=== PATIENT | male | born 1985 ===

== ENCOUNTER 2017-03-11 19:56 | Inpatient (IN) | payer MEDICAID ==
[2017-03-11] MEDS ORDERED: Sodium Chloride 0.9% 1,000 ML IV STA (20:28)
[2017-03-11 21:00] LABS: BASO % 0.3 % (0.0-2.0); EOS % 0.6 % (0.0-4.0); HEMOGLOBIN 14.5 g/dL (12.0-18.0); LYMPH # 1.9 K/uL (1.0-4.3); LYMPH % 28.7 % (20.0-40.0); MEAN CORPUSCULAR HEMOGLOBIN 28.8 pg (27.0-31.0); MEAN CORPUSCULAR HGB CONC 33.5 g/dL (33.0-37.0); MEAN PLATELET VOLUME 12.5 fl (7.2-11.7); MONO # 0.6 K/uL (0.0-0.8); MONO % 9.4 % (0.0-10.0); NEUT # 4.1 K/uL (1.8-7.0); NRBC % 0.1 % (0.0-0.0); RBC 5.02 Mil/uL (4.40-5.90); RED CELL DISTRIBUTION WIDTH 12.9 % (11.5-14.5); WHITE BLOOD COUNT 6.7 K/uL (4.8-10.8)
--- NOTE | 2017-03-11 21:02 | ED PDOC ---
Syncope/Near Syncope/Dizziness Time Seen by Provider: 03/11/17 20:15 Chief Complaint (Nursing): Weakness/Neurological Deficit Chief Complaint (Provider): WEAKNESS History Per: Patient (31 Y/O MALE H/O CHILDHOOD EPILEPSY IN [facility] HERE WITH TACTILE FEVER/COUGH/URI X 2 WEEKS ASSOCIATED TODAY WITH 2 SEPARATE EPISODE OF DIFFICULTY WITH SPEECH. STATES HE NOTED 3 SECOND EPISODE WHERE 'HIS TONGUE DID NOT WORK' AND HIS SPEECH WAS INCOHERENT. STATES HE FELT NEAR SYNCOPAL AT THAT TIME. NOTES ADDITONAL EPISODE LONGER IN DURATION A SHORT TIME PERIOD SUBSEQUENTLY. HAS NOTED CHEST PAIN WITH COUGHING AND DEEP BREATH. NO FLIGHTS. NO SMOKING/ETOH/DRUGS. NO FAMILY H/O CVA/IN/PE/DVT. STATES HE HAS HAD EEG IN [place] NEGATIVE FOR EPILEPSY AT THAT TIME.NO LOC WITH THESE EPISODES ) Past Medical History Reviewed: Historical Data, Nursing Documentation, Vital Signs Vital Signs: Last Vital Signs Temp 98.8 F 03/11/17 20:04 Pulse 99 H 03/11/17 20:04 Resp 18 03/11/17 20:17 BP 161/83 H 03/11/17 20:04 Pulse Ox 98 03/11/17 20:04 - Medical History PMH: HTN, Seizures (as a child) - Family History Family History: States: Unknown Family Hx - Social History Current smoker - smoking cessation education provided: No Alcohol: None Drugs: Denies - Home Medications Home Medications: Ambulatory Orders Medication Instructions Recorded No Known Home Med 03/11/17 - Allergies Allergies/Adverse Reactions: Allergies Allergy/AdvReac Type Severity Reaction Status Date / Time No Known Allergies Allergy Verified 03/11/17 20:09 Review of Systems ROS Statement: Except As Marked, All Systems Reviewed And Found Negative Physical Exam - Reviewed Nursing Documentation Reviewed: Yes Vital Signs Reviewed: Yes - Physical Exam Appears: Positive for: Well, Non-toxic, No Acute Distress Head Exam: Positive for: ATRAUMATIC, NORMAL INSPECTION, NORMOCEPHALIC Skin: Positive for: Normal Color, Warm, DRY Eye Exam: Positive for: EOMI, Normal appearance, PERRL ENT: Positive for: Normal ENT Inspection Neck: Positive for: Normal, Painless ROM Cardiovascular/Chest: Positive for: Regular Rate, Rhythm Respiratory: Positive for: CNT, Normal Breath Sounds Gastrointestinal/Abdominal: Positive for: Normal Exam, Bowel Sounds, Soft Back: Positive for: Normal Inspection Extremity: Positive for: Normal ROM Neurologic/Psych: Positive for: Alert, Oriented - Laboratory Results Result Diagrams: 03/11/17 20:57 03/11/17 20:57 - ECG O2 Sat by Pulse Oximetry: 98 (RA) Pulse Ox Interpretation: Normal - Progress ED Course And Treament: cxr: nad as per vrad head ct: IMPRESSION: No acute infarction or other acute intracranial pathology. Left frontal small arachnoid cyst with mild regional mass effect upon the left frontal lobe, as above. Thank you for allowing us to participate in the care of your patient. Dictated and Authenticated by: Perico Meeks MD ns 1 liter wide open d/w Dr. Kam, neurosurgery. CT reading normal variant. d/w Dr. Mcdermott neurology, recommends MRI brain with and without. Disposition - Clinical Impression Clinical Impression: Episode of generalized weakness - Patient ED Disposition Is Patient to be Admitted: Yes - Disposition Disposition Time: 00:00 Condition: FAIR
[2017-03-11 21:10] LABS: ALB/GLOB RATIO 1.3 (1.0-2.1); ALBUMIN 4.4 g/dL (3.5-5.0); ALT/SGPT 74 U/L (21-72); AST/SGOT 41 U/L (17-59); BLOOD UREA NITROGEN 13 mg/dl (9-20); CALCIUM 9.5 mg/dL (8.4-10.2); GFR AFRICAN-AMERICAN > 60; GFR NON-AFRICAN AMERICAN > 60; MAGNESIUM 1.8 MG/DL (1.6-2.3)
--- NOTE | 2017-03-11 22:07 | RAD ---
EXAM: XR Chest, 2 Views CLINICAL HISTORY: 31 years old, male; Signs and symptoms; Cough; Symptoms not specified TECHNIQUE: Frontal and lateral views of the chest. EXAM DATE/TIME: 03/11/2017 8:28 PM COMPARISON: No relevant prior studies available. FINDINGS: The mediastinal cardiac silouette is at the upper limits of normal. The lungs are clear. No effusions are identified. The osseous structures are normal. IMPRESSION: No acute findings.
[2017-03-11 22:50] LABS: VENOUS BLOOD GAS BASE EXCESS -6.1 mmol/L (0.0-2.0); VENOUS BLOOD GAS PCO2 58 mmHg (40-60); VENOUS BLOOD GAS PO2 96 mm/Hg (30-55)
[2017-03-11 23:44] LABS: VENOUS BLOOD GAS BASE EXCESS 0.3 mmol/L (0.0-2.0); VENOUS BLOOD GAS PCO2 38 mmHg (40-60); VENOUS BLOOD GAS PO2 75 mm/Hg (30-55); VENOUS BLOOD PH 7.42 (7.32-7.43)
--- NOTE | 2017-03-12 07:24 | CT ---
PROCEDURE: CT HEAD WITHOUT CONTRAST. HISTORY: difficulty with speech COMPARISON: None available. TECHNIQUE: Axial computed tomography images were obtained through the head/brain without intravenous contrast. Radiation dose: Total exam DLP = 8 4 mGy-cm. This CT exam was performed using one or more of the following dose reduction techniques: Automated exposure control, adjustment of the mA and/or kV according to patient size, and/or use of iterative reconstruction technique. FINDINGS: HEMORRHAGE: No intracranial hemorrhage. BRAIN: No mass effect or edema. No atrophy or chronic microvascular ischemic changes. Focal encephalomalacia along the left frontal lobe. Prominent foramen magnum. VENTRICLES: Unremarkable. No hydrocephalus. CALVARIUM: Unremarkable. PARANASAL SINUSES: Unremarkable as visualized. No significant inflammatory changes. MASTOID AIR CELLS: Unremarkable as visualized. No inflammatory changes. OTHER FINDINGS: None. IMPRESSION: No acute hemorrhage. Focal encephalomalacia along the left frontal lobe, of nonspecific etiology.
[2017-03-12] MEDS ORDERED: Gadodiamide 287 MG/ML VIAL (15ML) IV ONE (07:29)
--- NOTE | 2017-03-12 09:36 | CP.PCM.PN ---
Subjective - Date & Time of Evaluation Date of Evaluation: 03/12/17 Time of Evaluation: 09:34 - Subjective Subjective: called by ER attending last night regarding CT findings are almost certainly congenital based on hx of seizures at this time this is not a surgical lesion and would recommend a further w/u by neurology no role for neurosurgical intervention at this time Objective - Vital Signs/Intake and Output Vital Signs (last 24 hours): Temp Pulse Resp BP Pulse Ox 97.7 F 73 18 135/84 99 03/12/17 08:53 03/12/17 08:53 03/12/17 08:53 03/12/17 08:53 03/12/17 08:53
--- NOTE | 2017-03-12 12:02 | CARD ---
APPROVED REPORT EKG Measurement Heart [id number] <Conclusion> Normal sinus rhythm Cannot rule out Inferior infarct, age undetermined Abnormal ECG
--- NOTE | 2017-03-12 13:34 | CP.PCM.CON ---
History of Present Illness - History of Present Illness History of Present Illness: Infcetious Disease Consult Note- Asked to see this patient at th request of for Neurocysticercosis. HPI- Patient is a 31 year old male originally from [place] who has been in [place] for past 17 years with pmh of seizures as a child but states has not been on any anti-seizure meds since age 7. pt. states he is generally healthy but 2 days ago while at work he noticed that his tongue and chin felt strange and that his speech was changed and slurre and this lasted few seconds and resolved and again it happened second time few hours later while at work talking to his coworkers. He then states again yesterday while he was talking to a friend his speech became incoherent and somewhat slurred and he also felt burning sensation of the eys. he denies any double vision and denies any blurry vision, states slight MCCLURE now but denies any neck pain and denies any headache yesterday. he also state for past few days he felt like he had mild cold with slight cough and sore throat. denies any phlegm. jaky any sob. denies any fever or chills. denies passing out, denies any weakness in his arms or legs. denies any n/v, denies any diarrhea, denies any dysurea. He denies ever having similar episode in his life. he denies any h/o parasitic infections. 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 denies any recent travel denies any sick contacts Review of Systems - Review of Systems Review of Systems: as stated in HPI Past Patient History - Past Medical History & Family History Past Medical History?: No - Past Social History Smoking Status: Never Smoked Alcohol: None Drugs: Denies Home Situation {Lives}: With Family - CARDIAC Hx Hypertension: Yes - PULMONARY Hx Respiratory Disorders: No - NEUROLOGICAL Hx Neurological Disorder: Yes Hx Seizures: Yes (as a child) - HEENT Hx HEENT Problems: No - RENAL Hx Chronic Kidney Disease: No - MUSCULOSKELETAL/RHEUMATOLOGICAL Hx Falls: No - PSYCHIATRIC Hx Substance Use: No - SURGICAL HISTORY Hx Surgeries: No - ANESTHESIA Hx Anesthesia: No Hx Anesthesia Reactions: No Hx Malignant Hyperthermia: No Meds Allergies/Adverse Reactions: Allergies Allergy/AdvReac Type Severity Reaction Status Date / Time No Known Allergies Allergy Verified 03/11/17 20:09 Physical Exam - Constitutional Appears: Non-toxic, No Acute Distress - Head Exam Head Exam: ATRAUMATIC - Eye Exam Eye Exam: EOMI, PERRL - ENT Exam ENT Exam: Normal Oropharynx - Neck Exam Neck exam: Positive for: Full Rom Additional comments: supple No meningeal signs - Respiratory Exam Respiratory Exam: Clear to Auscultation Bilateral, NORMAL BREATHING PATTERN - Cardiovascular Exam Cardiovascular Exam: RRR, +S1, +S2 - GI/Abdominal Exam GI & Abdominal Exam: Normal Bowel Sounds, Soft Additional comments: NT, ND - Extremities Exam Extremities exam: Positive for: normal inspection - Neurological Exam Neurological exam: Alert, Oriented x3 Results - Vital Signs Recent Vital Signs: Last Vital Signs Temp 98 F 03/12/17 12:00 Pulse 70 03/12/17 12:00 Resp 18 03/12/17 12:00 BP 139/77 03/12/17 12:00 Pulse Ox 100 03/12/17 12:00 - Labs Result Diagrams: 03/11/17 20:57 03/11/17 20:57 Labs: Laboratory Results - last 72 hr 03/11/17 03/11/17 03/11/17 20:57 20:57 20:57 WBC 6.7 RBC 5.02 Hgb 14.5 Hct 43.2 MCV 86.0 MCH 28.8 MCHC 33.5 RDW 12.9 Plt Count 138 MPV 12.5 H Neut % (Auto) 61.0 Lymph % (Auto) 28.7 [place] % (Auto) 9.4 Eos % (Auto) 0.6 Baso % (Auto) 0.3 Neut # 4.1 Lymph # 1.9 [place] # 0.6 Eos # 0.0 Baso # 0.0 D-Dimer, Quantitative 187 pO2 VBG pH VBG pCO2 VBG HCO3 VBG Total CO2 VBG O2 Sat (Calc) VBG Base Excess VBG Potassium Glucose Lactate FiO2 Blood Gas Comments Crit Value Called To Crit Value Called By Crit Value Read Back Blood Gas Notified Time Sodium 141 Potassium 3.7 Chloride 106 Carbon Dioxide 24 Anion Gap 15 BUN 13 Creatinine 0.9 Est GFR ( Amer) > 60 Est GFR (Non-Af Amer) > 60 Random Glucose 113 H Calcium 9.5 Magnesium 1.8 Total Bilirubin 0.6 AST 41 ALT 74 H Alkaline Phosphatase 87 Troponin I < 0.0120 Total Protein 7.7 Albumin 4.4 Globulin 3.3 Albumin/Globulin Ratio 1.3 Venous Blood Potassium 03/11/17 03/11/17 22:45 23:40 WBC RBC Hgb Hct MCV MCH MCHC RDW Plt Count MPV Neut % (Auto) Lymph % (Auto) [place] % (Auto) Eos % (Auto) Baso % (Auto) Neut # Lymph # [place] # Eos # Baso # D-Dimer, Quantitative pO2 96 H 75 H VBG pH 7.20 L 7.42 VBG pCO2 58 38 L VBG HCO3 20.1 25.1 VBG Total CO2 24.5 25.8 VBG O2 Sat (Calc) 99.9 H 98.7 H VBG Base Excess -6.1 L 0.3 VBG Potassium > 20.0 H* 3.6 Glucose 105 104 Lactate 1.6 1.2 FiO2 21.0 21.0 Blood Gas Comments Vbg Crit Value Called To Dr cara farr Crit Value Called By Crystal Crit Value Read Back Y Blood Gas Notified Time 2250 Sodium 128.0 L 139.0 Potassium Chloride 105.0 110.0 H Carbon Dioxide Anion Gap BUN Creatinine Est GFR ( Amer) Est GFR (Non-Af Amer) Random Glucose Calcium Magnesium Total Bilirubin AST ALT Alkaline Phosphatase Troponin I Total Protein Albumin Globulin Albumin/Globulin Ratio Venous Blood Potassium > 20.0 H* 3.6 Accession No. : [id number] Patient Name / ID : DANIKA RESENDEZ I / [id number] Exam Date : 03/11/2017 20:42:04 ( Approved ) Study Comment : Sex / Age : M / 31Y Creator : Orlando Galvan MD Dictator : Olrando Galvan MD [employer]ude [employer] Driver : Director Of Institutional Research : Orlando Galvan MD Approver2 : Report Date : 03/12/2017 07:23:08 My Comment : PROCEDURE: CT HEAD WITHOUT CONTRAST. HISTORY: difficulty with speech COMPARISON: None available. TECHNIQUE: Axial computed tomography images were obtained through the head/brain without intravenous contrast. Radiation dose: Total exam DLP = 8 4 mGy-cm. This CT exam was performed using one or more of the following dose reduction techniques: Automated exposure control, adjustment of the mA and/or kV according to patient size, and/or use of iterative reconstruction technique. FINDINGS: HEMORRHAGE: No intracranial hemorrhage. BRAIN: No mass effect or edema. No atrophy or chronic microvascular ischemic changes. Focal encephalomalacia along the left frontal lobe. Prominent foramen magnum. VENTRICLES: Unremarkable. No hydrocephalus. CALVARIUM: Unremarkable. PARANASAL SINUSES: Unremarkable as visualized. No significant inflammatory changes. MASTOID AIR CELLS: Unremarkable as visualized. No inflammatory changes. OTHER FINDINGS: None. IMPRESSION: No acute hemorrhage. Focal encephalomalacia along the left frontal lobe, of nonspecific etiology. Accession No. : [id number] Patient Name / ID : DANIKA RESENDEZ I / [id number] Exam Date : 03/11/2017 20:28:23 ( Approved ) Study Comment : Sex / Age : M / 31Y Creator : Libby Gary Dictator : [employer] Driver : Director Of Institutional Research : Libby Gary Approver2 : Report Date : 03/11/2017 22:06:00 My Comment : [facility] Division of Radiology [address] [place] [address] Tel. no. Patient Name: MAL PEREZ I Pt. Address: [address] [place] [address] Rec #: [id number] [place] [address]: Ron Dennis PA-C Pt Order Location: [facility] : 1985 Male Age: 31 Order #: [id number] Reason for exam: cough Radiology CHEST TWO VIEWS (PA/LAT) Exam Date: 03/11/17 This imaging exam was performed at [facility] EXAM: XR Chest, 2 Views CLINICAL HISTORY: 31 years old, male; Signs and symptoms; Cough; Symptoms not specified TECHNIQUE: Frontal and lateral views of the chest. EXAM DATE/TIME: 03/11/2017 8:28 PM COMPARISON: No relevant prior studies available. FINDINGS: The mediastinal cardiac silouette is at the upper limits of normal. The lungs are clear. No effusions are identified. The osseous structures are normal. IMPRESSION: No acute findings. Dictated By: Libby Gary MD Dictated Date/Time: 03/11/172205 Signed By: Libby Gary MD Date Signed: [id number] Transcribed By: RICH Transcribe Date/Time : 03/11/172205 [id number] Assessment & Plan (1) Episode of generalized weakness Status: Acute (2) Slurring of speech Status: Acute (3) Cyst of brain Status: Acute (4) Neurocysticercosis Status: Acute - Assessment and Plan (Free Text) Assessment: A/P- 31 year old amle with c/o ? slurred speech epsiodes yesterday , found to have ? neurocysticercosis on BRAIN MRI report. neurocysticercosis is endemic in [place]. based on the MRI prelim report there are multiple cysts in variable stage/age. pt. might have experienced mild seizure like episodes secondary to these lesions. he is afebrile and currently asymptomatic. The initial approach to patients with clinical manifestations of neurocysticercosis should focus on management of symptoms such as seizure control with antiseizure meds. later we can determine if antiparasitic and anti-inflammatory therapy should be used. Anti-seizure meds should be administered to patients who present with seizures. Antiseizure meds may be appropriate for patients who do not present with seizures but who are at high risk for seizures. the role of antiparasitic meds depends on the location and number of cysts, symptomatology The potential benefit of antiparasitic therapy for treatment of neurocysticercosis is quicker resolution of active cysts, decreased risk for seizures. The potential risk of treatment with antiparasitic therapy is exacerbation of neurologic symptoms due to increased inflammation around the degenerating cyst, particularly in patients with a large number of lesions. differential diagnosis could also be TB , vs toxo vs fungal . prior to initiating any anti-inflammatory meds advise to to rule out latent Tb and also strongyloides as these 2 can be exacerbated by use of steroids. and patient from endemic region for these as well. plan- check for Tenia solium serolgy AB and antigen antigen. await final report of the brain MRI ( copy read by RICH seen in chart). advise neuroradiology reading/ will need to discuss with radiologist about exact location and the stage of the cysts. would advise Neurology consult and most pt. will need anti-seizure meds . also advise optho consult to rule out ocular neurocysticercosis. check quantiferon gold. check strongyloides serology. if no contraindication would also advise LP and send CSF for cell count and culture and toxo and tenia solium and AFB and fungal. check toxo IGG as well. case also d/w Neurologist . check HIV as well . all above also d/w patient and his and they verbalizes full understanding of all above. Thank you for allowing me to take part in the care of this patient. will f/u.
--- NOTE | 2017-03-12 16:14 | HP ---
CHIEF COMPLAINT: Weakness and abnormal sensation. HISTORY OF PRESENT ILLNESS: This is a 31-year-old male known case of epilepsy, who was suffering from upper respiratory tract infection kind of symptoms for about 2 weeks and had 2 separate episodes, where the patient was having difficulty speaking lasting about 3 seconds that he felt that his tongue did not work and his speech was incoherent and the patient had similar episode again. The patient also felt almost passing out. The patient was brought to the emergency room and was admitted for further management. PAST MEDICAL HISTORY: Significant for hypertension and seizures. PAST SURGICAL HISTORY: Unremarkable. PERSONAL HISTORY: The patient is currently nonsmoker, nondrinker, and no substance abuse. MEDICATIONS: The patient is not currently taking any chronic medication at home. ALLERGIES: THE PATIENT IS NOT ALLERGIC TO ANY MEDICATIONS. FAMILY HISTORY: Noncontributory. REVIEW OF SYSTEMS: Positive for abnormal sensation, weakness, and upper respiratory tract infection. Review of systems otherwise is negative for headache, dizziness, syncope, loss of consciousness, chest pain, shortness of breath, nausea, vomiting, diarrhea, constipation, any new joint or extremity pain. Review of systems of all other organ system is unremarkable. PHYSICAL EXAMINATION: GENERAL: A well-developed and well-nourished overweight 31-year-old male in no acute distress. VITAL SIGNS: Temperature 97.9, pulse 77, respirations 18, and blood pressure 125/73. HEENT: Pupils are reactive to light. No JVD. No thyromegaly. No lymphadenopathy. No nystagmus. Normocephalic and atraumatic skull. HEART: S1 and S2 normal and regular. No significant murmur, gallop, or rub is heard. LUNGS: Exam shows good bilateral air exchange. No rales or rhonchi. ABDOMEN: Soft and nontender. No organomegaly and no bruits. Bowel sounds are plus. EXTREMITIES: No edema. No calf swelling. No tenderness. No acute ischemia. CENTRAL NERVOUS SYSTEM: Essentially unchanged. There is no sign of any acute gross focal, motor or sensory neurological deficits. DIAGNOSTIC DATA: Available diagnostic data reviewed. Telemetry monitoring does not show any significant arrhythmias. WBC of 6.7, hemoglobin of 14.5, hematocrit of 43.2, and platelets of 138. Sodium 141, potassium of 3.7, chloride of 106, bicarb 24, BUN 13, and creatinine of 0.5. SMA-12 shows AST 41, ALT of 74. CAT of the head is unremarkable. Chest x-ray is clear. ADMITTING IMPRESSION: Near syncope, history of epilepsy, and morbid obesity. PLAN: As ordered. Case and plan discussed with the patient. Rito High MD
[2017-03-12] MEDS ORDERED: Lidocaine 1% Inj (20ml) ONE (16:23)
--- NOTE | 2017-03-12 17:30 | CP.PCM.CON ---
History of Present Illness - History of Present Illness History of Present Illness: Mr. Presley is a 31-year-old man with a past medical history epilepsy when he was a child. But, he has been off of seizure medication for the past 9 years. He is originally from [place] and came to the [place] about 17 years ago. Since then, he has returned to [place] intermittently, the most recent time was last year. He complains that for the last several days he has been having intermittent difficult with speech production and some confusion that lasts for a few minutes and resolves. This happened while he was talking with his friend. He was concerned and presented to the ED. He had another episode this morning. IN the ED, a CT scan of the head was done which was concerning for a possible cyst. MRI of the brain was subsequently done and showed a left frontal /parietal lobe cystic appearing mass as well as another possible mass posterior to the cerebellum. Review of Systems - Review of Systems All systems: reviewed and no additional remarkable complaints except Past Patient History - Past Medical History & Family History Past Medical History?: No - Past Social History Smoking Status: Never Smoked Alcohol: None Drugs: Denies Home Situation {Lives}: With Family - CARDIAC Hx Hypertension: Yes - PULMONARY Hx Respiratory Disorders: No - NEUROLOGICAL Hx Neurological Disorder: Yes Hx Seizures: Yes (as a child) - HEENT Hx HEENT Problems: No - RENAL Hx Chronic Kidney Disease: No - ENDOCRINE/METABOLIC Hx Diabetes Mellitus Type 2: Yes - MUSCULOSKELETAL/RHEUMATOLOGICAL Hx Falls: No - PSYCHIATRIC Hx Substance Use: No - SURGICAL HISTORY Hx Surgeries: No - ANESTHESIA Hx Anesthesia: No Hx Anesthesia Reactions: No Hx Malignant Hyperthermia: No Meds Allergies/Adverse Reactions: Allergies Allergy/AdvReac Type Severity Reaction Status Date / Time No Known Allergies Allergy Verified 03/11/17 20:09 - Medications Medications: Current Medications Levetiracetam (Keppra) 500 mg PO BID NOA Physical Exam - Constitutional Appears: Well - Head Exam Head Exam: ATRAUMATIC, NORMAL INSPECTION, NORMOCEPHALIC - Eye Exam Eye Exam: EOMI, Normal appearance, PERRL - ENT Exam ENT Exam: Mucous Membranes Moist, Normal Exam - Respiratory Exam Respiratory Exam: Clear to Auscultation Bilateral, NORMAL BREATHING PATTERN - Cardiovascular Exam Cardiovascular Exam: REGULAR RHYTHM, +S1, +S2 - GI/Abdominal Exam GI & Abdominal Exam: Normal Bowel Sounds, Soft. absent: Tenderness - Rectal Exam Rectal Exam: Deferred - Extremities Exam Extremities exam: Positive for: normal inspection - Back Exam Back exam: NORMAL INSPECTION - Neurological Exam Neurological exam: Alert, CN II-XII Intact, Normal Gait, Oriented x3, Reflexes Normal - Expanded Neurological Exam Expanded Patient oriented to: person, place, time Cranial nerves: EOM's Intact: Normal, Facial Palsey w/Forehead Movement: Normal Ataxia: No Cerebellar Function: Finger to Nose: Abnormal Right Upper motor neuron: Babinski Sign: Normal Sensory exam: Lower Extremity 2 Point Discrimination: Normal, Lower Extremity Light Touch: Normal, Lower Extremity Pin Prick: Normal, Lower Extremity Temperature: Normal, Upper Extremity 2 Point Discrimination: Normal, Upper Extremity Light Touch: Normal, Upper Extremity Pin Prick: Normal, Upper Extremity Temperature: Normal Neuro motor strength exam: Left Upper Extremity: 5, Right Upper Extremity: 5, Left Lower Extremity: 5, Right Lower Extremity: 5 DTR: Achilles Tendon Left: 2+, Achilles Tendon Right: 2+, Bicep Left: 2+, Bicep Right: 2+, Brachioradialis Left: 2+, Brachioradialis Right: 2+, Patellar Left: 2 +, Patellar Right: 2+, Tricep Left: 2+, Tricep Right: 2+ - Psychiatric Exam Psychiatric exam: Normal Affect, Normal Mood - Skin Skin Exam: Dry, Intact, Normal Color, Warm Results - Vital Signs Recent Vital Signs: Last Vital Signs Temp 97.9 F 03/12/17 15:59 Pulse 72 03/12/17 15:59 Resp 16 03/12/17 15:59 BP 125/76 03/12/17 15:59 Pulse Ox 98 03/12/17 15:59 - Labs Result Diagrams: 03/11/17 20:57 03/11/17 20:57 Assessment & Plan (1) Cyst of brain Assessment and Plan: The MRI and CT confirm that there is a cystic lesion and the history of being from [place] puts the patient at an increased risk for parasitic infections. However, it is difficult to determine what the lesion is prior to further testing. The location of the cystic mass could cause seizures and the history of epilepsy as a child along with the recent episodes of speech difficulty are consistent with focal seizures. I recommend starting Keppra 500 mg BID. Further, a lumbar puncture for CSF analysis will be performed for further evaluation. This was discussed with Dr. Ruiz (ID), and we will order the appropriate CSF work-up. Neurosurgery does not feel that the patient is a neurosurgical candidate at this time. Thank you. Status: Acute Priority: High
[2017-03-13 08:06] LABS: HEMOGLOBIN 14.8 g/dL (12.0-18.0); MEAN CORPUSCULAR HGB CONC 33.7 g/dL (33.0-37.0); RBC 5.12 Mil/uL (4.40-5.90); RED CELL DISTRIBUTION WIDTH 12.7 % (11.5-14.5); WHITE BLOOD COUNT 6.2 K/uL (4.8-10.8)
[2017-03-13 08:07] LABS: ALB/GLOB RATIO 1.3 (1.0-2.1); ALBUMIN 4.3 g/dL (3.5-5.0); ALT/SGPT 68 U/L (21-72); AST/SGOT 32 U/L (17-59); BLOOD UREA NITROGEN 15 mg/dl (9-20); CALCIUM 9.6 mg/dL (8.4-10.2); GFR AFRICAN-AMERICAN > 60; GFR NON-AFRICAN AMERICAN > 60
--- NOTE | 2017-03-13 11:49 | PN ---
DATE: 03/13/2017 SUBJECTIVE: The patient seen and examined. Interim events noted. Consult noted, appreciated. Neurology, neurosurgery, and infectious disease, hospitalist intervention noted and appreciated. The patient remains in progressive care unit on bus driver/monitor. The patient feels okay. No specific complaint. No chest pain. No shortness of breath. No dizziness. No new sensory or motor symptoms. GENERAL: The patient is in no acute distress. VITAL SIGNS: Stable. HEART: S1 and S2 normal, regular. LUNGS: Good bilateral air entry. ABDOMEN: Soft, nontender. EXTREMITIES: No edema. No calf swelling. No tenderness. No acute ischemia. CENTRAL NERVOUS SYSTEM: The patient is alert, awake, oriented x3. The patient ____ motor or sensory neurological deficits. DIAGNOSTIC DATA: Available diagnostic data reviewed. Telemetry monitoring does not show significant arrhythmia. ASSESSMENT: Overall, the patient's general medical condition is stable. PLAN: As ordered. Rito High MD
--- NOTE | 2017-03-13 17:12 | CP.PCM.PN ---
Subjective - Date & Time of Evaluation Date of Evaluation: 03/13/17 Time of Evaluation: 17:11 - Subjective Subjective: Mr. Presley was seen and examined today at bedside. He complained of slight headache and back ache. There were no acute events overnight. He was in NAD. Objective - Vital Signs/Intake and Output Vital Signs (last 24 hours): Temp Pulse Resp BP Pulse Ox 98.3 F 76 16 127/79 99 03/13/17 15:52 03/13/17 15:52 03/13/17 15:52 03/13/17 15:52 03/13/17 15:52 - Medications Medications: Current Medications Acetaminophen (Tylenol 325mg Tab) 650 mg PO Q4 PRN PRN Reason: Pain, moderate (4-7) Last Admin: 03/12/17 18:00 Dose: 650 mg Levetiracetam (Keppra) 500 mg PO BID [facility] Last Admin: 03/13/17 17:08 Dose: 500 mg - Labs Labs: 03/13/17 05:30 03/13/17 05:30 - Neurological Exam Additional comments: Neurologically unchanged compared with yesterday's examination. Assessment and Plan (1) Cyst of brain Assessment & Plan: Will follow up on CSF results and work with ID for treatment plan. Status: Acute
--- NOTE | 2017-03-13 17:16 | MRI ---
PROCEDURE: MRI BRAIN WITH AND WITHOUT CONTRAST HISTORY: difficulty with speech COMPARISON: Comparison is made to the previous CT of the head dated 03/11/2017 TECHNIQUE: Multiplanar, multisequence MR images of the brain were obtained with and without intravenous contrast enhancement. FINDINGS: HEMORRHAGE: None DWI: No evidence of an acute or early subacute infarction. BRAIN PARENCHYMA: No mass,mass effect or edema. Again seen is well defined hypointense T1 and FLAIR signal and hyperintense T2 signal cystic formation or encephalomalacia at the peripheral left posterior frontal lobe. There is also extra-axial cystic formation at the midline posterior fossa may represent arachnoid cyst. ENHANCEMENT: No abnormal intracranial enhancement. VENTRICLES: Unremarkable. No hydrocephalus. CRANIUM: Unremarkable. ORBITS: Grossly unremarkable. PARANASAL SINUSES/MASTOIDS: Mucosal retention cyst versus polyp at the left maxillary sinus. Mild sinuses mucosal disease. VASCULAR SYSTEM: Skull base flow voids intact. OTHER FINDINGS: None . IMPRESSION: No evidence of acute or subacute infarction. No evidence of acute pathology in the brain. With defined cystic formation versus encephalomalacia at the peripheral posterior left frontal lobe. No evidence of abnormal enhancement in the brain parenchyma.
[2017-03-13 18:01] LABS: FLUID TYPE SPINAL FLUID
[2017-03-13 18:06] LABS: CSF APPEARANCE CLEAR/COLORLESS (CLEAR); CSF VOLUME 1 mL (0-1)
[2017-03-14 06:42] LABS: HEMOGLOBIN 15.7 g/dL (12.0-18.0); MEAN CELL VOLUME 86.2 fl (80.0-94.0); MEAN CORPUSCULAR HEMOGLOBIN 29.6 pg (27.0-31.0); MEAN CORPUSCULAR HGB CONC 34.3 g/dL (33.0-37.0); RBC 5.3 Mil/uL (4.40-5.90); WHITE BLOOD COUNT 8.2 K/uL (4.8-10.8)
[2017-03-14 06:50] LABS: ALB/GLOB RATIO 1.3 (1.0-2.1); ALBUMIN 4.4 g/dL (3.5-5.0); ALT/SGPT 64 U/L (21-72); AST/SGOT 32 U/L (17-59); BLOOD UREA NITROGEN 15 mg/dl (9-20); CALCIUM 9.7 mg/dL (8.4-10.2); GFR AFRICAN-AMERICAN > 60; GFR NON-AFRICAN AMERICAN > 60
[2017-03-14] MEDS: Alum-Mag Hydrox-Simethicone Susp (30 mL) PO PRN (09:17)
--- NOTE | 2017-03-14 09:34 | PN ---
DATE: 03/14/2017 SUBJECTIVE: The patient is seen and examined. Interim events noted. Consults noted and appreciated. Neurology followup and intervention noted and appreciated. The patient remains in progressive care unit on telemetry monitoring. *------* spontaneously yesterday. Currently, no chest pain. No shortness of breath. No abdominal pain. PHYSICAL EXAMINATION GENERAL: The patient is in no acute distress. VITAL SIGNS: Stable. HEART: S1, S2 normal and regular. LUNGS: Good bilateral air exchange. ABDOMEN: Soft and nontender. No organomegaly, no bruits. Bowel sounds are present. No sign of acute abdomen. No guarding, no rigidity, no rebound. EXTREMITIES: No edema. No calf pain. No tenderness. No acute ischemia. CENTRAL NERVOUS SYSTEM: Essentially unchanged. DIAGNOSTIC DATA: Available diagnostic data reviewed. ASSESSMENT: Overall, the patient's general medical condition is stable. PLAN: As ordered. Rito High MD
--- NOTE | 2017-03-14 13:22 | CP.PCM.PN ---
Subjective - Date & Time of Evaluation Date of Evaluation: 03/14/17 Time of Evaluation: 13:22 - Subjective Subjective: ID Note- Pt. seen and examined today with his and daughter at his bedside. Pt. is in good spirits and he denies any MCCLUER, denies any visual problems, denies any dizziness, denies any fever. he denies any further speech or tongue problems since 2 days ago. Objective - Vital Signs/Intake and Output Vital Signs (last 24 hours): Temp Pulse Resp BP Pulse Ox 98.2 F 77 20 122/74 98 03/14/17 12:00 03/14/17 12:00 03/14/17 12:00 03/14/17 12:00 03/14/17 12:00 - Medications Medications: Current Medications Acetaminophen (Tylenol 325mg Tab) 650 mg PO Q4 PRN PRN Reason: Pain, moderate (4-7) Last Admin: 03/12/17 18:00 Dose: 650 mg Al Hydrox/Mg Hydrox/Simethicone (Maalox Plus 30 Ml) 30 ml PO Q6 PRN PRN Reason: Indigestion / Heartburn Last Admin: 03/14/17 09:17 Dose: 30 ml Famotidine (Pepcid) 20 mg PO BID [facility] Last Admin: 03/14/17 09:17 Dose: 20 mg Levetiracetam (Keppra) 500 mg PO BID [facility] Last Admin: 03/14/17 09:17 Dose: 500 mg - Labs Labs: - Constitutional Appears: No Acute Distress - Head Exam Head Exam: ATRAUMATIC - Eye Exam Eye Exam: EOMI, PERRL - ENT Exam ENT Exam: Normal Oropharynx - Neck Exam Neck Exam: Full ROM Additional comments: supple - Respiratory Exam Respiratory Exam: Clear to Ausculation Bilateral, NORMAL BREATHING PATTERN - Cardiovascular Exam Cardiovascular Exam: RRR, +S1, +S2 - GI/Abdominal Exam GI & Abdominal Exam: Soft, Normal Bowel Sounds Additional comments: NT, ND - Extremities Exam Extremities Exam: Normal Inspection - Neurological Exam Neurological Exam: Alert, Awake, Oriented x3 - Additional Findings Additional findings: Laboratory Results - last 72 hr 03/11/17 03/11/17 03/11/17 20:57 20:57 20:57 WBC 6.7 RBC 5.02 Hgb 14.5 Hct 43.2 MCV 86.0 MCH 28.8 MCHC 33.5 RDW 12.9 Plt Count 138 MPV 12.5 H Neut % (Auto) 61.0 Lymph % (Auto) 28.7 [place] % (Auto) 9.4 Eos % (Auto) 0.6 Baso % (Auto) 0.3 Neut # 4.1 Lymph # 1.9 [place] # 0.6 Eos # 0.0 Baso # 0.0 D-Dimer, Quantitative 187 pO2 VBG pH VBG pCO2 VBG HCO3 VBG Total CO2 VBG O2 Sat (Calc) VBG Base Excess VBG Potassium Glucose Lactate FiO2 Blood Gas Comments Crit Value Called To Crit Value Called By Crit Value Read Back Blood Gas Notified Time Sodium 141 Potassium 3.7 Chloride 106 Carbon Dioxide 24 Anion Gap 15 BUN 13 Creatinine 0.9 Est GFR ( Amer) > 60 Est GFR (Non-Af Amer) > 60 Random Glucose 113 H Calcium 9.5 Magnesium 1.8 Total Bilirubin 0.6 AST 41 ALT 74 H Alkaline Phosphatase 87 Troponin I < 0.0120 Total Protein 7.7 Albumin 4.4 Globulin 3.3 Albumin/Globulin Ratio 1.3 Vitamin B12 TSH 3rd Generation Venous Blood Potassium Fluid Type CSF Volume CSF Appearance CSF WBC CSF RBC CSF Total Cell Counted CSF Monos/Macrophages CSF Comment CSF Glucose CSF Total Protein CSF VDRL HIV 1&2 Antibody Screen 03/11/17 03/11/17 03/12/17 22:45 23:40 18:00 WBC RBC Hgb Hct MCV MCH MCHC RDW Plt Count MPV Neut % (Auto) Lymph % (Auto) [place] % (Auto) Eos % (Auto) Baso % (Auto) Neut # Lymph # [place] # Eos # Baso # D-Dimer, Quantitative pO2 96 H 75 H VBG pH 7.20 L 7.42 VBG pCO2 58 38 L VBG HCO3 20.1 25.1 VBG Total CO2 24.5 25.8 VBG O2 Sat (Calc) 99.9 H 98.7 H VBG Base Excess -6.1 L 0.3 VBG Potassium > 20.0 H* 3.6 Glucose 105 104 Lactate 1.6 1.2 FiO2 21.0 21.0 Blood Gas Comments Vbg Crit Value Called To Dr cara farr Crit Value Called By 162 Crit Value Read Back Y Blood Gas Notified Time 2250 Sodium 128.0 L 139.0 Potassium Chloride 105.0 110.0 H Carbon Dioxide Anion Gap BUN Creatinine Est GFR ( Amer) Est GFR (Non-Af Amer) Random Glucose Calcium Magnesium Total Bilirubin AST ALT Alkaline Phosphatase Troponin I Total Protein Albumin Globulin Albumin/Globulin Ratio Vitamin B12 TSH 3rd Generation Venous Blood Potassium > 20.0 H* 3.6 Fluid Type Spinal fluid CSF Volume 1 CSF Appearance Clear/colorless CSF WBC 0.0 CSF RBC 1.0 H CSF Total Cell Counted TEST NOT PERFORMED CSF Monos/Macrophages TEST NOT PERFORMED CSF Comment CSF Glucose CSF Total Protein CSF VDRL HIV 1&2 Antibody Screen 03/12/17 03/13/17 03/13/17 20:45 05:30 05:30 WBC 6.2 RBC 5.12 Hgb 14.8 Hct 44.0 MCV 86.0 MCH 29.0 MCHC 33.7 RDW 12.7 Plt Count 131 MPV Neut % (Auto) Lymph % (Auto) [place] % (Auto) Eos % (Auto) Baso % (Auto) Neut # Lymph # [place] # Eos # Baso # D-Dimer, Quantitative pO2 VBG pH VBG pCO2 VBG HCO3 VBG Total CO2 VBG O2 Sat (Calc) VBG Base Excess VBG Potassium Glucose Lactate FiO2 Blood Gas Comments Crit Value Called To Crit Value Called By Crit Value Read Back Blood Gas Notified Time Sodium 141 Potassium 5.2 H Chloride 103 Carbon Dioxide 28 Anion Gap 15 BUN 15 Creatinine 0.8 Est GFR ( Amer) > 60 Est GFR (Non-Af Amer) > 60 Random Glucose 95 Calcium 9.6 Magnesium Total Bilirubin 1.0 AST 32 ALT 68 Alkaline Phosphatase 88 Troponin I Total Protein 7.7 Albumin 4.3 Globulin 3.4 Albumin/Globulin Ratio 1.3 Vitamin B12 297 TSH 3rd Generation 2.14 Venous Blood Potassium Fluid Type CSF Volume CSF Appearance CSF WBC CSF RBC CSF Total Cell Counted CSF Monos/Macrophages CSF Comment CSF Glucose CSF Total Protein CSF VDRL HIV 1&2 Antibody Screen Negative 03/13/17 03/13/17 03/14/17 17:00 17:30 05:20 WBC 8.2 RBC 5.30 Hgb 15.7 Hct 45.7 MCV 86.2 MCH 29.6 MCHC 34.3 RDW 13.0 Plt Count 133 MPV Neut % (Auto) Lymph % (Auto) [place] % (Auto) Eos % (Auto) Baso % (Auto) Neut # Lymph # [place] # Eos # Baso # D-Dimer, Quantitative pO2 VBG pH VBG pCO2 VBG HCO3 VBG Total CO2 VBG O2 Sat (Calc) VBG Base Excess VBG Potassium Glucose Lactate FiO2 Blood Gas Comments Crit Value Called To Crit Value Called By Crit Value Read Back Blood Gas Notified Time Sodium Potassium Chloride Carbon Dioxide Anion Gap BUN Creatinine Est GFR ( Amer) Est GFR (Non-Af Amer) Random Glucose Calcium Magnesium Total Bilirubin AST ALT Alkaline Phosphatase Troponin I Total Protein Albumin Globulin Albumin/Globulin Ratio Vitamin B12 TSH 3rd Generation Venous Blood Potassium Fluid Type CSF Volume CSF Appearance CSF WBC CSF RBC CSF Total Cell Counted CSF Monos/Macrophages CSF Comment CSF Glucose 59 CSF Total Protein 31.0 CSF VDRL Nonreactive HIV 1&2 Antibody Screen 03/14/17 05:20 WBC RBC Hgb Hct MCV MCH MCHC RDW Plt Count MPV Neut % (Auto) Lymph % (Auto) [place] % (Auto) Eos % (Auto) Baso % (Auto) Neut # Lymph # [place] # Eos # Baso # D-Dimer, Quantitative pO2 VBG pH VBG pCO2 VBG HCO3 VBG Total CO2 VBG O2 Sat (Calc) VBG Base Excess VBG Potassium Glucose Lactate FiO2 Blood Gas Comments Crit Value Called To Crit Value Called By Crit Value Read Back Blood Gas Notified Time Sodium 143 Potassium 5.4 H Chloride 105 Carbon Dioxide 27 Anion Gap 16 BUN 15 Creatinine 0.8 Est GFR ( Amer) > 60 Est GFR (Non-Af Amer) > 60 Random Glucose 106 Calcium 9.7 Magnesium Total Bilirubin 0.6 AST 32 ALT 64 Alkaline Phosphatase 97 Troponin I Total Protein 7.8 Albumin 4.4 Globulin 3.4 Albumin/Globulin Ratio 1.3 Vitamin B12 TSH 3rd Generation Venous Blood Potassium Fluid Type CSF Volume CSF Appearance CSF WBC CSF RBC CSF Total Cell Counted CSF Monos/Macrophages CSF Comment CSF Glucose CSF Total Protein CSF VDRL HIV 1&2 Antibody Screen Microbiology 03/11/17 22:30 Blood-Venous Blood Culture - Preliminary NO GROWTH AFTER 48 HOURS 03/11/17 22:41 Blood-Venous Blood Culture - Preliminary NO GROWTH AFTER 48 HOURS Assessment and Plan (1) Episode of generalized weakness Status: Acute (2) Slurring of speech Status: Acute (3) Cyst of brain Status: Acute - Assessment and Plan (Free Text) Assessment: A/P- 31 year old amle with c/o ? slurred speech epsiodes yesterday , found to have ? neurocysticercosis on BRAIN MRI report. clinically stable no further seizure like activity afebrile normal wbc count CSF cell count - 0 wbc CSF vdrl- neg await CSF AFB, TB and Toxo and Tenia solium results. await tenia AB and antigen serology ( as per lab will be sent to specialized lab [place] of state). HIV Ab- neg plan- advise to continue with the antiseizure med for now. No antiparasitic meds yet pending further CSF and serology results since the cyst as seen on the MRI and reviewed by do not have the typical Neurocysticercosis cyst look. may need to d/w neuroradiologist as well. all above also d/w patient and his and they verbalizes full understanding of all above.
--- NOTE | 2017-03-14 13:27 | CP.PCM.PCO ---
Assessment & Plan - Assessment and Plan (Free Text) Assessment: Dr.Keith Wise opthamalogy consulted for r/o optic Neurocysticercosis per Dr.Forouzesh choe
--- NOTE | 2017-03-14 15:46 | PCM.PROC ---
Procedures Attestation:: I certify that I have explained the specified Operation(s) or Procedure(s), risks, benefits and reasonable alternatives to the Patient and/or other person responsible. The opportunity was given to ask questions and all questions answered - Lumbar Puncture Consent Obtained: Written Consent Time Out Performed: Yes Patient Position: Upright Skin Prep: Povidone-Iodine 1% Local Anesthetic Used: Lidocaine 1% Spinal Needle Gauge: 22G Interspace Used: L4-L5 Fluid Initially Obtained: Clear Complications: None
--- NOTE | 2017-03-14 16:13 | CP.PCM.PN ---
Subjective - Date & Time of Evaluation Date of Evaluation: 03/14/17 Time of Evaluation: 16:11 - Subjective Subjective: Mr. Fernandez Francois was seen and examined today at bedside. He was found in NAD. He denied headache, backache, nausea, weakness, sensory changes or any seizure-like activity. There were no acute events overnight. I reviewed the preliminary results of the CSF analysis with him and he expressed understanding. His questions were answered. Objective - Vital Signs/Intake and Output Vital Signs (last 24 hours): Temp Pulse Resp BP Pulse Ox 98.2 F 77 20 122/74 98 03/14/17 12:00 03/14/17 12:00 03/14/17 12:00 03/14/17 12:00 03/14/17 12:00 - Medications Medications: Current Medications Acetaminophen (Tylenol 325mg Tab) 650 mg PO Q4 PRN PRN Reason: Pain, moderate (4-7) Last Admin: 03/12/17 18:00 Dose: 650 mg Al Hydrox/Mg Hydrox/Simethicone (Maalox Plus 30 Ml) 30 ml PO Q6 PRN PRN Reason: Indigestion / Heartburn Last Admin: 03/14/17 09:17 Dose: 30 ml Famotidine (Pepcid) 20 mg PO BID [facility] Last Admin: 03/14/17 09:17 Dose: 20 mg Levetiracetam (Keppra) 500 mg PO BID [facility] Last Admin: 03/14/17 09:17 Dose: 500 mg - Labs Labs: 03/14/17 05:20 03/14/17 05:20 - Neurological Exam Additional comments: Neurologically unchanged compared with previous examination. Assessment and Plan (1) Cyst of brain Assessment & Plan: Likely long-standing and not active. Continue Keppra for seizure prophylaxis and follow up with outpatient neurology and neurosurgery for repeat imaging in 6 months. Status: Acute
[2017-03-15 07:18] LABS: ALB/GLOB RATIO 1.2 (1.0-2.1); ALBUMIN 4.3 g/dL (3.5-5.0); ALT/SGPT 66 U/L (21-72); AST/SGOT 30 U/L (17-59); BLOOD UREA NITROGEN 17 mg/dl (9-20); CALCIUM 9.4 mg/dL (8.4-10.2); GFR AFRICAN-AMERICAN > 60; GFR NON-AFRICAN AMERICAN > 60
[2017-03-15 07:19] LABS: HEMOGLOBIN 15.3 g/dL (12.0-18.0); MEAN CELL VOLUME 86.1 fl (80.0-94.0); MEAN CORPUSCULAR HEMOGLOBIN 29.1 pg (27.0-31.0); MEAN CORPUSCULAR HGB CONC 33.8 g/dL (33.0-37.0); RBC 5.25 Mil/uL (4.40-5.90); RED CELL DISTRIBUTION WIDTH 12.8 % (11.5-14.5); WHITE BLOOD COUNT 6.6 K/uL (4.8-10.8)
[2017-03-15] MEDS: Alum-Mag Hydrox-Simethicone Susp (30 mL) PO PRN (08:49)
--- NOTE | 2017-03-15 09:16 | CP.PCM.PN ---
Subjective - Date & Time of Evaluation Date of Evaluation: 03/15/17 Time of Evaluation: 07:15 - Subjective Subjective: patient seen and examined with attending patient denies headaches, dizziness, acute changes in vision, N/V, or other complains at this evaluation Afebrile, no events overnight Objective - Vital Signs/Intake and Output Vital Signs (last 24 hours): Temp Pulse Resp BP Pulse Ox 97.8 F 74 20 128/84 99 03/15/17 08:49 03/15/17 08:49 03/15/17 08:49 03/15/17 08:49 03/15/17 08:49 - Medications Medications: Current Medications Acetaminophen (Tylenol 325mg Tab) 650 mg PO Q4 PRN PRN Reason: Pain, moderate (4-7) Last Admin: 03/15/17 08:54 Dose: 650 mg Al Hydrox/Mg Hydrox/Simethicone (Maalox Plus 30 Ml) 30 ml PO Q6 PRN PRN Reason: Indigestion / Heartburn Last Admin: 03/15/17 08:49 Dose: 30 ml Cyanocobalamin (Vitamin B12 1000 Mcg/Ml Inj) 1,000 mcg IM DAILY [facility] Famotidine (Pepcid) 20 mg PO BID [facility] Last Admin: 03/15/17 08:49 Dose: 20 mg Levetiracetam (Keppra) 500 mg PO BID [facility] Last Admin: 03/15/17 08:49 Dose: 500 mg - Labs Labs: 03/15/17 05:15 03/15/17 05:15 - Constitutional Appears: No Acute Distress - Eye Exam Eye Exam: Normal appearance - ENT Exam ENT Exam: Mucous Membranes Moist - Respiratory Exam Respiratory Exam: Clear to Ausculation Bilateral, NORMAL BREATHING PATTERN - Cardiovascular Exam Cardiovascular Exam: REGULAR RHYTHM, +S1, +S2 - GI/Abdominal Exam GI & Abdominal Exam: Soft, Normal Bowel Sounds. absent: Guarding, Rigid, Tenderness - Extremities Exam Extremities Exam: Normal Inspection. absent: Calf Tenderness, Pedal Edema - Neurological Exam Neurological Exam: Alert, Awake, Oriented x3 - Psychiatric Exam Psychiatric exam: Normal Affect, Normal Mood - Skin Skin Exam: Dry, Intact, Normal Color Assessment and Plan (1) Cyst of brain Assessment & Plan: -patient on Keppra for seizure prophylaxis as per Neurology recommendations f/u Neurology recommendations f/u ID recommendations Status: Acute
[2017-03-15] MEDS ORDERED: Labetalol 5 mg/ml Inj 20ML IVP PRN (18:18)
--- NOTE | 2017-03-15 18:40 | PCM.RRTMUL ---
<Clara Angel - Last Filed: 03/15/17 18:41> ANALYTICAL CHEMISTRY TEACHER Nurse Assessment - Vital Signs Blood Pressure:: 142/95 Pulse Rate:: 91 Respiratory Rate:: 14 Temperature:: 98.1 F - Fiordaliza Coma Scale Coma Scale Eye Opening:: Spontaneous Coma Scale Motor:: Obeys Commands Movement Coma Scale Verbal:: Oriented Coma Scale Total:: 15 I.Reason for ANALYTICAL CHEMISTRY TEACHER - A) Acute Change in Patient: Subjective: ANALYTICAL CHEMISTRY TEACHER Start time: 6:05pm ANALYTICAL CHEMISTRY TEACHER Location: 403 bed 2 ANALYTICAL CHEMISTRY TEACHER Reason: Weakness, numbness, dysarthria S: ANALYTICAL CHEMISTRY TEACHER called by nurse because patient complaining of right sided weakness, slurring of speech and numbness of the face. On arrival, patient was noted to be lying in the bed and complaining of not being able to move. O: ANALYTICAL CHEMISTRY TEACHER Vitals: 199/130, 104, 24, 99%Rm air General: Pt seen lying in bed, shaking, tearful and appears anxious. Mildly distressed. Alert and oriented x3 HEENT: EOM in tact, PERRLA Lungs: Clear to auscultation BL Cardio: Regular rate and rhythm; normal s1 s2, no murmus, good perpiheral pulses Abdomen: soft, non tender Neuro: R Upper extremity strength 2/5 (improved to 5/5 after 5 minutes), Slurred speech (resolved after 5 minutes). L upper/lower extremity strength 5/5 ANALYTICAL CHEMISTRY TEACHER Interventions: 1. Non con CT Assessment and plan: 31yo male with seizure disorder presents with acute onset of of right sided weakness, facial numbness, and dysarthria 1. Spoke with Neurology (Dr. Mcdermott)- presentation was griselda to patients seizure history. Less likely stroke 2. Increase Keppra to 750mg 3. Labetolol prn for systolic BP >170 ANALYTICAL CHEMISTRY TEACHER End time: 6:30pm ANALYTICAL CHEMISTRY TEACHER Resident: Dr. Stanley Mendez ANALYTICAL CHEMISTRY TEACHER Leader: Dr. Solorzano <Jennifer Solorzano - Last Filed: 03/15/17 19:03> Attending/Attestation - Attestation I have personally seen and examined this patient.: Yes I have fully participated in the care of the patient.: Yes I have reviewed all pertinent clinical information, including history, physical exam and plan: Yes Notes (Text): 03/15/17 19:03 seen and examined with residents, agree with findings and plan as above.
--- NOTE | 2017-03-15 18:52 | CT ---
PROCEDURE: CT HEAD WITHOUT CONTRAST. HISTORY: R arm weakness, slurring of speech COMPARISON: MRI brain without an with contrast from 03/12/2017. TECHNIQUE: Axial computed tomography images were obtained through the head/brain without intravenous contrast. Radiation dose: Total exam DLP = 1273.43 mGy-cm. This CT exam was performed using one or more of the following dose reduction techniques: Automated exposure control, adjustment of the mA and/or kV according to patient size, and/or use of iterative reconstruction technique. FINDINGS: HEMORRHAGE: No intracranial hemorrhage. BRAIN: Fleming-white matter differentiation is preserved. There is redemonstration of a 1.8 x 1.9 cm CSF density lesion in the left posterior frontal lobe without evidence of surrounding vasogenic edema. There is also an associated eccentric calcification posterior superiorly. There is buckling of surrounding fleming matter which may indicate extra-axial location. There is a well-circumscribed left paramedian CSF density lesion in the left retro cerebellar region with mild displacement of the commissure to the left. There is abnormal low density in the left anterior middle cranial fossae with eccentric coarse calcification. There is also coarse extra-axial calcification in the left frontal extra-axial space. VENTRICLES: The ventricles are normal in size, shape and configuration. CALVARIUM: The skull base and calvarium are normal. PARANASAL SINUSES: There is a large retention cyst/ polyp in the left maxillary sinus. There are osteomas in the paramedian frontal sinuses. MASTOID AIR CELLS: Predominantly clear. OTHER FINDINGS: None. IMPRESSION: 1. No acute intracranial abnormality. Redemonstration of 1.8 x 1.9 cm CSF density lesion extra-axial lesion with eccentric coarse calcification in the left posterior frontal lobe which may represent neurocysticercosis or arachnoid cyst. 2. Also noted is abnormal density in the left anterior middle cranial fossa with eccentric calcification and left frontal extra-axial calcification which could represent calcified neurocysticercosis. 3. Suspect left paramedian arachnoid cyst in the retro cerebellar region. Important findings were discussed with nurse Ybarra on 03/15/2017 at 6:45 p.m.
[2017-03-15] MEDS: Divalproex 500 mg DR(BID formulation) PO SCH (21:58)
--- NOTE | 2017-03-16 08:12 | CP.PCM.PN ---
Subjective - Date & Time of Evaluation Date of Evaluation: 03/16/17 Time of Evaluation: 07:10 - Subjective Subjective: patient seen and examined with attending patient states that yesterday he had a sudden episode of weakness of right side of the face and right upper extremities, associated with numbness sensation, denies any weakness or numbness of right lower extremity, DOOR CAPTAIN was called Patient denies Cp, SOB, N/V, weakness, numbness or tingling at this evaluation Afebrile Objective - Vital Signs/Intake and Output Vital Signs (last 24 hours): Temp Pulse Resp BP Pulse Ox 97.9 F 70 18 125/85 99 03/16/17 08:08 03/16/17 08:08 03/16/17 08:08 03/16/17 08:08 03/16/17 08:08 - Medications Medications: Current Medications Acetaminophen (Tylenol 325mg Tab) 650 mg PO Q4 PRN PRN Reason: Pain, moderate (4-7) Last Admin: 03/16/17 07:34 Dose: 650 mg Al Hydrox/Mg Hydrox/Simethicone (Maalox Plus 30 Ml) 30 ml PO Q6 PRN PRN Reason: Indigestion / Heartburn Last Admin: 03/15/17 08:49 Dose: 30 ml Cyanocobalamin (Vitamin B12 1000 Mcg/Ml Inj) 1,000 mcg IM DAILY [facility] Last Admin: 03/15/17 14:17 Dose: 1,000 mcg Divalproex Sodium (Depakote Dr(*Bid*)) 500 mg PO Q12 [facility] Last Admin: 03/15/17 21:58 Dose: 500 mg Famotidine (Pepcid) 20 mg PO BID [facility] Last Admin: 03/15/17 16:52 Dose: 20 mg Labetalol HCl (Trandate) 10 mg IVP Q12H PRN PRN Reason: Other - Labs Labs: 03/15/17 05:15 03/15/17 05:15 - Constitutional Appears: No Acute Distress - ENT Exam ENT Exam: Mucous Membranes Moist - Respiratory Exam Respiratory Exam: Clear to Ausculation Bilateral, NORMAL BREATHING PATTERN - Cardiovascular Exam Cardiovascular Exam: REGULAR RHYTHM, +S1, +S2 - GI/Abdominal Exam GI & Abdominal Exam: Soft, Normal Bowel Sounds. absent: Distended, Guarding, Rigid, Tenderness - Extremities Exam Extremities Exam: Normal Inspection. absent: Calf Tenderness, Pedal Edema - Neurological Exam Neurological Exam: Alert, Awake, Oriented x3 Neuro motor strength exam: Left Upper Extremity: 5, Right Upper Extremity: 5, Left Lower Extremity: 5, Right Lower Extremity: 5 - Skin Skin Exam: Dry, Intact, Normal Color Assessment and Plan (1) Cyst of brain Assessment & Plan: Additional Keppra 250 mg was given yesterday during DOOR CAPTAIN as per Neurology, Dr. Mcdermott , recommendations Keppra discontinued, and started Depakote per Neurology f/u neuro recommendations Repeat head CT on 03/15/17 showed no acute intracraneal abdnormality. Re- demonstration of brain cyst, and calcification in the left posterior frontal lobe. Please see report for details. f/u ID recommendations PT eval and Tx Status: Acute
[2017-03-16] MEDS: Divalproex 500 mg DR(BID formulation) PO SCH ×2 (08:52→21:30)
--- NOTE | 2017-03-16 11:55 | CP.PCM.PN ---
Subjective - Date & Time of Evaluation Date of Evaluation: 03/16/17 Time of Evaluation: 11:55 - Subjective Subjective: ID Note- Pt. seen and examined this am. pt. explains had episode of right face and right hand and foot tingling sensation and numbness yesterday and QUALITY MANAGEMENT NURSE was called. pt. states this was different than the other espisodes where he had change in speech. he also explains he does have MCCLURE and gets worse with walking. denies diplopia, denies nausea. pt. denies any other seizure like episodes today so far. was given different antiseizure mediation by neurologist post this episode and as per ATTENDING ANESTHESIOLOGIST also received a dose of decadron. Objective - Vital Signs/Intake and Output Vital Signs (last 24 hours): Temp Pulse Resp BP Pulse Ox 97.9 F 70 18 125/85 99 03/16/17 08:08 03/16/17 08:08 03/16/17 08:08 03/16/17 08:08 03/16/17 08:08 - Medications Medications: Current Medications Acetaminophen (Tylenol 325mg Tab) 650 mg PO Q4 PRN PRN Reason: Pain, moderate (4-7) Last Admin: 03/16/17 07:34 Dose: 650 mg Al Hydrox/Mg Hydrox/Simethicone (Maalox Plus 30 Ml) 30 ml PO Q6 PRN PRN Reason: Indigestion / Heartburn Last Admin: 03/15/17 08:49 Dose: 30 ml Cyanocobalamin (Vitamin B12 1000 Mcg/Ml Inj) 1,000 mcg IM DAILY [facility] Last Admin: 03/15/17 14:17 Dose: 1,000 mcg Divalproex Sodium (Depakote Dr(*Bid*)) 500 mg PO Q12 [facility] Last Admin: 03/16/17 08:52 Dose: 500 mg Famotidine (Pepcid) 20 mg PO BID [facility] Last Admin: 03/16/17 08:52 Dose: 20 mg Dexamethasone 10 mg/ Sodium (Chloride) 51 mls @ 102 mls/hr IVPB ONCE ONE Stop: 03/16/17 12:34 Labetalol HCl (Trandate) 10 mg IVP Q12H PRN PRN Reason: Other - Labs Labs: - Additional Findings Additional findings: - Constitutional Appears: No Acute Distress - Head Exam Head Exam: ATRAUMATIC - Eye Exam Eye Exam: EOMI, PERRL - ENT Exam ENT Exam: Normal Oropharynx - Neck Exam Neck Exam: Full ROM Additional comments: supple - Respiratory Exam Respiratory Exam: Clear to Ausculation Bilateral, NORMAL BREATHING PATTERN - Cardiovascular Exam Cardiovascular Exam: RRR, +S1, +S2 - GI/Abdominal Exam GI & Abdominal Exam: Soft, Normal Bowel Sounds Additional comments: NT, ND - Extremities Exam Extremities Exam: Normal Inspection - Neurological Exam Neurological Exam: Alert, Awake, Oriented x 3 Laboratory Results - last 72 hr 03/12/17 03/12/17 03/12/17 18:00 20:45 20:45 WBC RBC Hgb Hct MCV MCH MCHC RDW Plt Count Sodium Potassium Chloride Carbon Dioxide Anion Gap BUN Creatinine Est GFR ( Amer) Est GFR (Non-Af Amer) POC Glucose (mg/dL) Random Glucose Calcium Total Bilirubin AST ALT Alkaline Phosphatase Total Protein Albumin Globulin Albumin/Globulin Ratio Fluid Type Spinal fluid CSF Volume 1 CSF Appearance Clear/colorless CSF WBC 0.0 CSF RBC 1.0 H CSF Total Cell Counted TEST NOT PERFORMED CSF Monos/Macrophages TEST NOT PERFORMED CSF Comment CSF Glucose CSF Total Protein CSF VDRL HIV 1&2 Antibody Screen Negative Toxoplasma IgG Ab 75.30 H Toxoplasma IgM Ab <8.00 Toxoplasma Ab Interp TEST NOT PERFORMED TB Test (QFT) Nil TB Test Mitogen - Nil TB Test TB - Nil TB Test (QFT) 03/13/17 03/13/17 03/14/17 17:00 17:30 05:20 WBC 8.2 RBC 5.30 Hgb 15.7 Hct 45.7 MCV 86.2 MCH 29.6 MCHC 34.3 RDW 13.0 Plt Count 133 Sodium Potassium Chloride Carbon Dioxide Anion Gap BUN Creatinine Est GFR ( Amer) Est GFR (Non-Af Amer) POC Glucose (mg/dL) Random Glucose Calcium Total Bilirubin AST ALT Alkaline Phosphatase Total Protein Albumin Globulin Albumin/Globulin Ratio Fluid Type CSF Volume CSF Appearance CSF WBC CSF RBC CSF Total Cell Counted CSF Monos/Macrophages CSF Comment CSF Glucose 59 CSF Total Protein 31.0 CSF VDRL Nonreactive HIV 1&2 Antibody Screen Toxoplasma IgG Ab Toxoplasma IgM Ab Toxoplasma Ab Interp TB Test (QFT) Nil TB Test Mitogen - Nil TB Test TB - Nil TB Test (QFT) 03/14/17 03/14/17 03/15/17 05:20 05:20 05:15 WBC 6.6 RBC 5.25 Hgb 15.3 Hct 45.2 MCV 86.1 MCH 29.1 MCHC 33.8 RDW 12.8 Plt Count 135 Sodium 143 Potassium 5.4 H Chloride 105 Carbon Dioxide 27 Anion Gap 16 BUN 15 Creatinine 0.8 Est GFR ( Amer) > 60 Est GFR (Non-Af Amer) > 60 POC Glucose (mg/dL) Random Glucose 106 Calcium 9.7 Total Bilirubin 0.6 AST 32 ALT 64 Alkaline Phosphatase 97 Total Protein 7.8 Albumin 4.4 Globulin 3.4 Albumin/Globulin Ratio 1.3 Fluid Type CSF Volume CSF Appearance CSF WBC CSF RBC CSF Total Cell Counted CSF Monos/Macrophages CSF Comment CSF Glucose CSF Total Protein CSF VDRL HIV 1&2 Antibody Screen Toxoplasma IgG Ab Toxoplasma IgM Ab Toxoplasma Ab Interp TB Test (QFT) Nil TNP TB Test Mitogen - Nil TNP TB Test TB - Nil TNP TB Test (QFT) TNP 03/15/17 03/15/17 05:15 18:03 WBC RBC Hgb Hct MCV MCH MCHC RDW Plt Count Sodium 141 Potassium 4.8 Chloride 104 Carbon Dioxide 27 Anion Gap 15 BUN 17 Creatinine 0.8 Est GFR ( Amer) > 60 Est GFR (Non-Af Amer) > 60 POC Glucose (mg/dL) 88 Random Glucose 96 Calcium 9.4 Total Bilirubin 0.6 AST 30 ALT 66 Alkaline Phosphatase 90 Total Protein 7.7 Albumin 4.3 Globulin 3.5 Albumin/Globulin Ratio 1.2 Fluid Type CSF Volume CSF Appearance CSF WBC CSF RBC CSF Total Cell Counted CSF Monos/Macrophages CSF Comment CSF Glucose CSF Total Protein CSF VDRL HIV 1&2 Antibody Screen Toxoplasma IgG Ab Toxoplasma IgM Ab Toxoplasma Ab Interp TB Test (QFT) Nil TB Test Mitogen - Nil TB Test TB - Nil TB Test (QFT) Microbiology 03/12/17 20:10 Cerebral Spinal Fluid CSF Culture - Preliminary NO GROWTH AFTER 2 DAYS 03/11/17 22:30 Blood-Venous Blood Culture - Preliminary NO GROWTH AFTER 4 DAYS 03/11/17 22:41 Blood-Venous Blood Culture - Preliminary NO GROWTH AFTER 4 DAYS 03/12/17 20:10 Other: Please Indicate Mycobacterial Culture - Preliminary Accession No. : [id number] Patient Name / ID : DANIKA RESENDEZ / [id number] Exam Date : 03/15/2017 18:11:36 ( Approved ) Study Comment : Sex / Age : M / 31Y Creator : GIGI NICOLAS MD Dictator : GIGI NICOLAS MD White Washer : Dry Cans Operator : GIGI NICOLAS MD Approver2 : Report Date : 03/15/2017 18:42:53 My Comment : PROCEDURE: CT HEAD WITHOUT CONTRAST. HISTORY: R arm weakness, slurring of speech COMPARISON: MRI brain without an with contrast from 03/12/2017. TECHNIQUE: Axial computed tomography images were obtained through the head/brain without intravenous contrast. Radiation dose: Total exam DLP = 1273.43 mGy-cm. This CT exam was performed using one or more of the following dose reduction techniques: Automated exposure control, adjustment of the mA and/or kV according to patient size, and/or use of iterative reconstruction technique. FINDINGS: HEMORRHAGE: No intracranial hemorrhage. BRAIN: Fleming-white matter differentiation is preserved. There is redemonstration of a 1.8 x 1.9 cm CSF density lesion in the left posterior frontal lobe without evidence of surrounding vasogenic edema. There is also an associated eccentric calcification posterior superiorly. There is buckling of surrounding fleming matter which may indicate extra-axial location. There is a well-circumscribed left paramedian CSF density lesion in the left retro cerebellar region with mild displacement of the commissure to the left. There is abnormal low density in the left anterior middle cranial fossae with eccentric coarse calcification. There is also coarse extra-axial calcification in the left frontal extra-axial space. VENTRICLES: The ventricles are normal in size, shape and configuration. CALVARIUM: The skull base and calvarium are normal. PARANASAL SINUSES: There is a large retention cyst/ polyp in the left maxillary sinus. There are osteomas in the paramedian frontal sinuses. MASTOID AIR CELLS: Predominantly clear. OTHER FINDINGS: None. IMPRESSION: 1. No acute intracranial abnormality. Redemonstration of 1.8 x 1.9 cm CSF density lesion extra-axial lesion with eccentric coarse calcification in the left posterior frontal lobe which may represent neurocysticercosis or arachnoid cyst. 2. Also noted is abnormal density in the left anterior middle cranial fossa with eccentric calcification and left frontal extra-axial calcification which could represent calcified neurocysticercosis. 3. Suspect left paramedian arachnoid cyst in the retro cerebellar region. Important findings were discussed with nurse Ybarra on 03/15/2017 at 6:45 p.m. Assessment and Plan (1) Episode of generalized weakness Status: Acute (2) Slurring of speech Status: Acute (3) Cyst of brain Status: Acute - Assessment and Plan (Free Text) Assessment: A/P- 31 year old amle with c/o ? slurred speech epsiodes yesterday , found to have ? neurocysticercosis on BRAIN MRI report. new seizure activity again yesterday afebrile normal wbc count CSF cell count - 0 wbc CSF vdrl- neg await CSF - Toxo and Tenia solium results. await tenia AB and antigen serology ( as per lab will be sent to specialized lab [place] state)). HIV Ab- neg csf cx - neg and csf vdrl- neg csf afb- neg new brain ct report- ? arachnoid cyst vs possible neurocysticercosis as per radiologist's report. plan- advise to continue with the antiseizure med for now as per neurologist . No antiparasitic meds yet, pending further CSF and serology results since the cyst as seen on the MRI and reviewed by do not have the typical Neurocysticercosis cyst look and maybe arachnoid cyst . Hence it's important to asceratin the etiology of these cyst and would recommend transfer to tertiary care center where these cyst could possibly be biopsied and sent for further testing so that appropriate targeted treatment can be done. case was d/w and per him he had lengthy discussion with neuroradiologist and as per them perhaps biopsy might cause spillage of the cyst and hence not recommended at this time and perhaps might be good idea to empirically start antiparasitic med to see if any improvement and if no improvement then pt. would need tissue biopsy or further neurosurgical work up.
[2017-03-16] MEDS ORDERED: Dexamethasone 10 MG in Sodium Chloride 0.9% 50 ML IVPB ONE (12:05)
--- NOTE | 2017-03-16 14:53 | CP.PCM.PN ---
Subjective - Date & Time of Evaluation Date of Evaluation: 03/16/17 Time of Evaluation: 14:48 - Subjective Subjective: Mr. Fernandez Francois was seen and examined today at bedside. Last night, the patient developed the acute onset of speech difficulty and right side weakness. An SPINNING DOFFER was called and he was sent down to CT scan. By the time her returned, he was improved. He had a strange sensation prior to the event of confusion. There was no shaking movements, tongue biting, or urinary incontinence. Objective - Vital Signs/Intake and Output Vital Signs (last 24 hours): Temp Pulse Resp BP Pulse Ox 97.8 F 84 18 118/61 97 03/16/17 11:59 03/16/17 11:59 03/16/17 11:59 03/16/17 11:59 03/16/17 11:59 - Medications Medications: Current Medications Acetaminophen (Tylenol 325mg Tab) 650 mg PO Q4 PRN PRN Reason: Pain, moderate (4-7) Last Admin: 03/16/17 07:34 Dose: 650 mg Al Hydrox/Mg Hydrox/Simethicone (Maalox Plus 30 Ml) 30 ml PO Q6 PRN PRN Reason: Indigestion / Heartburn Last Admin: 03/15/17 08:49 Dose: 30 ml Cyanocobalamin (Vitamin B12 1000 Mcg/Ml Inj) 1,000 mcg IM DAILY [facility] Last Admin: 03/16/17 13:12 Dose: 1,000 mcg Divalproex Sodium (Depakote Dr(*Bid*)) 500 mg PO Q12 [facility] Last Admin: 03/16/17 08:52 Dose: 500 mg Famotidine (Pepcid) 20 mg PO BID [facility] Last Admin: 03/16/17 08:52 Dose: 20 mg Labetalol HCl (Trandate) 10 mg IVP Q12H PRN PRN Reason: Other - Labs Labs: 03/15/17 05:15 03/15/17 05:15 - Neurological Exam Neurological Exam: Alert, Awake, CN II-XII Intact, Normal Gait, Oriented x3 Neuro motor strength exam: Left Upper Extremity: 5, Right Upper Extremity: 5, Left Lower Extremity: 5, Right Lower Extremity: 5 Assessment and Plan (1) Cyst of brain Assessment & Plan: Today, he is back to normal and has no residual weakness or speech difficulty. The CT scan of the head continued to show the multifocal cystic lesions, some of which are calcified. I discussed at length with neuroradiology these findings and the differential is neurocysticircosis, arachnoid cysts, echinococcus or cystic gliosis associated with malignancy. Biopsy may be too risk considering the fact that he is currently well and it may lead to cyst rupture and permanent neurologic deficits. Perhaps empiric treatment would be best. We are still waiting for CSF results. He was switched to depakote since he had seizure on Keppra and he was complaining of headache. Will continue depakote at 500 mg BID. Status: Acute
--- NOTE | 2017-03-17 08:43 | CON ---
DATE: I was called in to see Mr. Presley for syncope. On physical examination, visual acuity is 20/20 in both eyes. Pupillary exam is normal. Corneal exam is normal. Lens exam is normal. Fundus exam is normal. My assessment is that Fernandez has a normal eye exam. I told him he could follow up with me in my office after discharge. Jamaal Wise MD
[2017-03-17] MEDS: Divalproex 500 mg DR(BID formulation) PO SCH (09:37)
[2017-03-17] MEDS ORDERED: Tuberculin 5 Units/0.1 ml Inj ID ONE (12:31)
[2017-03-17] MEDS ORDERED: Iohexol 240 (50 ml) PO STA (12:31)
--- NOTE | 2017-03-17 13:12 | CP.PCM.PN ---
Subjective - Date & Time of Evaluation Date of Evaluation: 03/17/17 Time of Evaluation: 07:05 - Subjective Subjective: patient seen and examined with attending patient denies new episode of weakness or numbness afebrile, slightly tachy since yesterday Denies Cp, SOB,N/V, dizziness, weakness, numbness at this eval Objective - Vital Signs/Intake and Output Vital Signs (last 24 hours): Temp Pulse Resp BP Pulse Ox 98.1 F 83 18 130/76 98 03/17/17 12:29 03/17/17 12:29 03/17/17 12:29 03/17/17 12:29 03/17/17 12:29 - Medications Medications: Current Medications Acetaminophen (Tylenol 325mg Tab) 650 mg PO Q4 PRN PRN Reason: Pain, moderate (4-7) Last Admin: 03/16/17 07:34 Dose: 650 mg Al Hydrox/Mg Hydrox/Simethicone (Maalox Plus 30 Ml) 30 ml PO Q6 PRN PRN Reason: Indigestion / Heartburn Last Admin: 03/15/17 08:49 Dose: 30 ml Cyanocobalamin (Vitamin B12 1000 Mcg/Ml Inj) 1,000 mcg IM DAILY [facility] Last Admin: 03/17/17 09:38 Dose: 1,000 mcg Divalproex Sodium (Depakote Dr(*Bid*)) 500 mg PO Q12 [facility] Last Admin: 03/17/17 09:37 Dose: 500 mg Famotidine (Pepcid) 20 mg PO BID [facility] Last Admin: 03/17/17 09:37 Dose: 20 mg Labetalol HCl (Trandate) 10 mg IVP Q12H PRN PRN Reason: Other - Labs Labs: 03/15/17 05:15 03/15/17 05:15 - Additional Findings Additional findings: Constitutional Appears: No Acute Distress - ENT Exam ENT Exam: Mucous Membranes Moist - Respiratory Exam Respiratory Exam: Clear to Ausculation Bilateral, NORMAL BREATHING PATTERN - Cardiovascular Exam Cardiovascular Exam: REGULAR RHYTHM, +S1, +S2 - GI/Abdominal Exam GI & Abdominal Exam: Soft, Normal Bowel Sounds. absent: Distended, Guarding, Rigid, Tenderness - Extremities Exam Extremities Exam: Normal Inspection. absent: Calf Tenderness, Pedal Edema - Neurological Exam Neurological Exam: Alert, Awake, Oriented x3 Neuro motor strength exam: Left Upper Extremity: 5, Right Upper Extremity: 5, Left Lower Extremity: 5, Right Lower Extremity: 5 - Skin Skin Exam: Dry, Intact, Normal Color Assessment and Plan (1) Cyst of brain Assessment & Plan: c/w Depakote as per Neurology f/u CSF results f/u neuro recommendations f/u ID recommendations for neurocysticircosis empiric treatment As per Neuro biopsy may be too risk at this time considering the fact that he is currently well and it may lead to cyst rupture and permanent neurologic deficits f/u PT eval and Tx Status: Acute
--- NOTE | 2017-03-17 14:54 | CP.PCM.PN ---
Subjective - Date & Time of Evaluation Date of Evaluation: 03/17/17 Time of Evaluation: 13:00 - Subjective Subjective: ID note- Pt. seen and examined today. Denies any fever or chills. states he gets MCCLURE after eating but denies any further weakness or tingling sensation on the hand or foot or mouth today. Objective - Vital Signs/Intake and Output Vital Signs (last 24 hours): Temp Pulse Resp BP Pulse Ox 98.1 F 83 18 130/76 98 03/17/17 12:29 03/17/17 12:29 03/17/17 12:29 03/17/17 12:29 03/17/17 12:29 - Medications Medications: Current Medications Acetaminophen (Tylenol 325mg Tab) 650 mg PO Q4 PRN PRN Reason: Pain, moderate (4-7) Last Admin: 03/16/17 07:34 Dose: 650 mg Al Hydrox/Mg Hydrox/Simethicone (Maalox Plus 30 Ml) 30 ml PO Q6 PRN PRN Reason: Indigestion / Heartburn Last Admin: 03/15/17 08:49 Dose: 30 ml Cyanocobalamin (Vitamin B12 1000 Mcg/Ml Inj) 1,000 mcg IM DAILY [facility] Last Admin: 03/17/17 09:38 Dose: 1,000 mcg Divalproex Sodium (Depakote Dr(*Bid*)) 500 mg PO Q12 [facility] Last Admin: 03/17/17 09:37 Dose: 500 mg Famotidine (Pepcid) 20 mg PO BID [facility] Last Admin: 03/17/17 09:37 Dose: 20 mg Labetalol HCl (Trandate) 10 mg IVP Q12H PRN PRN Reason: Other - Labs Labs: - Additional Findings Additional findings: Constitutional Appears: No Acute Distress - Head Exam Head Exam: ATRAUMATIC - Eye Exam Eye Exam: EOMI, PERRL - ENT Exam ENT Exam: Normal Oropharynx - Neck Exam Neck Exam: Full ROM Additional comments: supple - Respiratory Exam Respiratory Exam: Clear to Ausculation Bilateral, NORMAL BREATHING PATTERN - Cardiovascular Exam Cardiovascular Exam: RRR, +S1, +S2 - GI/Abdominal Exam GI & Abdominal Exam: Soft, Normal Bowel Sounds Additional comments: NT, ND - Extremities Exam Extremities Exam: Normal Inspection - Neurological Exam Neurological Exam: Alert, Awake, Oriented x 3 Laboratory Results - last 72 hr 03/12/17 03/14/17 03/15/17 20:45 05:20 05:15 WBC 6.6 RBC 5.25 Hgb 15.3 Hct 45.2 MCV 86.1 MCH 29.1 MCHC 33.8 RDW 12.8 Plt Count 135 Sodium Potassium Chloride Carbon Dioxide Anion Gap BUN Creatinine Est GFR ( Amer) Est GFR (Non-Af Amer) POC Glucose (mg/dL) Random Glucose Calcium Total Bilirubin AST ALT Alkaline Phosphatase Total Protein Albumin Globulin Albumin/Globulin Ratio Toxoplasma IgG Ab 75.30 H Toxoplasma IgM Ab <8.00 Toxoplasma Ab Interp TEST NOT PERFORMED TB Test (QFT) Nil TNP TB Test Mitogen - Nil TNP TB Test TB - Nil TNP TB Test (QFT) TNP 03/15/17 03/15/17 05:15 18:03 WBC RBC Hgb Hct MCV MCH MCHC RDW Plt Count Sodium 141 Potassium 4.8 Chloride 104 Carbon Dioxide 27 Anion Gap 15 BUN 17 Creatinine 0.8 Est GFR ( Amer) > 60 Est GFR (Non-Af Amer) > 60 POC Glucose (mg/dL) 88 Random Glucose 96 Calcium 9.4 Total Bilirubin 0.6 AST 30 ALT 66 Alkaline Phosphatase 90 Total Protein 7.7 Albumin 4.3 Globulin 3.5 Albumin/Globulin Ratio 1.2 Toxoplasma IgG Ab Toxoplasma IgM Ab Toxoplasma Ab Interp TB Test (QFT) Nil TB Test Mitogen - Nil TB Test TB - Nil TB Test (QFT) Microbiology 03/12/17 20:10 Cerebral Spinal Fluid CSF Culture - Preliminary NO GROWTH AFTER 3 DAYS 03/12/17 20:10 Cerebral Spinal Fluid Fungal Culture - Preliminary 03/11/17 22:30 Blood-Venous Blood Culture - Final NO GROWTH AFTER 5 DAYS 03/11/17 22:30 Blood-Venous Gram Stain - Final TEST NOT PERFORMED 03/11/17 22:41 Blood-Venous Blood Culture - Final NO GROWTH AFTER 5 DAYS 03/11/17 22:41 Blood-Venous Gram Stain - Final 03/12/17 20:10 Other: Please Indicate Mycobacterial Culture - Preliminary Assessment and Plan (1) Episode of generalized weakness Status: Acute (2) Slurring of speech Status: Acute (3) Cyst of brain Status: Acute - Assessment and Plan (Free Text) Assessment: A/P- 31 year old amle with c/o ? slurred speech epsiodes yesterday , found to have ? neurocysticercosis on BRAIN MRI report. no new seizures today afebrile normal wbc count CSF cell count - 0 wbc CSF vdrl- neg await CSF - Toxo and Tenia solium results. await tenia AB and antigen serology ( as per lab will be sent to specialized lab [place] state)). HIV Ab- neg csf cx - neg and csf vdrl- neg csf afb- neg new brain ct report- ? arachnoid cyst vs possible neurocysticercosis as per radiologist's report. plan- advise to continue with the antiseizure med for now as per neurologist . still awaiting tenia soilum serology and AG results. will also test for echonococcus serology although echinococcus cyst very rare in the brain. advise to check abd/chest CT rule out pulmonary or hepatic cysts. check PPD . in light of the discussion with the neurologist and pt. coming from [facility] for cysticercosis and the fact that it might be another week till we get the results of the tenia serology test back, and the fact that possible biopsy of the cyst as per neuroradiologist may cause spillage of the cyst and other ? complications advise to start pt. empirically on albendazole along with steroids to help avoid any inflamamtion post starting antiparasitic. However, once this treatment is begun pt. should be monitored very closely in ICU setting.
--- NOTE | 2017-03-17 15:01 | CP.PCM.PN ---
Subjective - Date & Time of Evaluation Date of Evaluation: 03/17/17 Time of Evaluation: 14:58 - Subjective Subjective: Mr. Fernandez Francois was seen and examined today at bedside. He continued to complain of a headache that was rated 5/10 in severity, constant, pressure-like and localized to the front and uatsdin region. He denied blurry vision, photophobia, weakness, speech difficulty or changes in sensation. I discussed the plan for testing and treatment further with him and his family. They did not have any further questions after our meeting. Objective - Vital Signs/Intake and Output Vital Signs (last 24 hours): Temp Pulse Resp BP Pulse Ox 98.1 F 83 18 130/76 98 03/17/17 12:29 03/17/17 12:29 03/17/17 12:29 03/17/17 12:29 03/17/17 12:29 - Medications Medications: Current Medications Acetaminophen (Tylenol 325mg Tab) 650 mg PO Q4 PRN PRN Reason: Pain, moderate (4-7) Last Admin: 03/16/17 07:34 Dose: 650 mg Al Hydrox/Mg Hydrox/Simethicone (Maalox Plus 30 Ml) 30 ml PO Q6 PRN PRN Reason: Indigestion / Heartburn Last Admin: 03/15/17 08:49 Dose: 30 ml Cyanocobalamin (Vitamin B12 1000 Mcg/Ml Inj) 1,000 mcg IM DAILY [facility] Last Admin: 03/17/17 09:38 Dose: 1,000 mcg Divalproex Sodium (Depakote Dr(*Bid*)) 500 mg PO Q12 [facility] Last Admin: 03/17/17 09:37 Dose: 500 mg Famotidine (Pepcid) 20 mg PO BID [facility] Last Admin: 03/17/17 09:37 Dose: 20 mg Labetalol HCl (Trandate) 10 mg IVP Q12H PRN PRN Reason: Other - Labs Labs: 03/15/17 05:15 03/15/17 05:15 - Neurological Exam Neurological Exam: Alert, Awake, CN II-XII Intact, Normal Gait, Oriented x3 Neuro motor strength exam: Left Upper Extremity: 5, Right Upper Extremity: 5, Left Lower Extremity: 5, Right Lower Extremity: 5 Assessment and Plan (1) Cyst of brain Assessment & Plan: Currently complaining of headache. Will treat with Magnesium sulfate 2 grams IV once, Decadron 10 mg IV once, and increase depakote to 750 mg BID. Will follow quantiferon gold test for Tb and discuss starting treatment for suspected neurocysticircosis with ID. Status: Acute
[2017-03-17] MEDS ORDERED: Magnesium Sulfate 2 gm/50 ml 2 GM/50 ML BAG IVPB ONE (15:03)
[2017-03-17] MEDS ORDERED: Iohexol 300 100 ML IJ ONE (16:14)
[2017-03-17] MEDS ORDERED: Sodium Chloride 0.9% 50 ML IV ONE (16:15)
[2017-03-17] MEDS: Divalproex 250 mg DR(BID formulation) PO SCH (16:36)
--- NOTE | 2017-03-17 17:53 | CT ---
PROCEDURE: CT Chest, Abdomen with intravenous contrast HISTORY: attn liver/ lung cyst COMPARISON: None. TECHNIQUE: IV dose administered: 95 cc Omnipaque 300 Radiation dose: Total exam DLP = 948.35 mGy-cm. This CT exam was performed using one or more of the following dose reduction techniques: Automated exposure control, adjustment of the mA and/or kV according to patient size, and/or use of iterative reconstruction technique. FINDINGS: CT CHEST WITH CONTRAST: LUNGS: Clear. No nodule, mass or consolidation. MEDIASTINUM: Unremarkable. Normal caliber aorta and pulmonary arterial trunk. No aortic dissection. Normal size heart. LYMPH NODES: Unremarkable. PLEURA: Unremarkable. No pneumothorax. No pleural fluid. BONES: Unremarkable. OTHER FINDINGS: None. CT ABDOMEN AND PELVIS: LIVER: Hepatic steatosis. No focal masses. No intrahepatic bile duct dilatation or perihepatic ascites. GALLBLADDER AND BILE DUCTS: Unremarkable. PANCREAS: Unremarkable. No gross lesion or ductal dilatation. SPLEEN: Unremarkable. ADRENALS: Unremarkable. No mass. KIDNEYS AND URETERS: Unremarkable. No hydronephrosis. No solid mass. VASCULATURE: Unremarkable. No aortic aneurysm. BOWEL: Unremarkable. No obstruction. No gross mural thickening. APPENDIX: Normal appendix, as visualized. The entire appendix is not seen. PERITONEUM: Unremarkable. No free fluid. No free air. LYMPH NODES: Unremarkable. No enlarged lymph nodes. BONES: No acute fracture. OTHER FINDINGS: None. IMPRESSION: No significant or acute findings to account for/ related to the clinical presentation. Additional benign and/or incidental findings described above.
[2017-03-18] MEDS: Divalproex 250 mg DR(BID formulation) PO SCH ×2 (08:38→16:10)
--- NOTE | 2017-03-18 13:45 | PN ---
DATE: 03/18/2017 SUBJECTIVE: The patient is seen and examined. Interim events noted. Consults noted and appreciated. Infectious disease and neurology followup and intervention noted and appreciated. The patient feels okay. No new episodes of neurological symptoms. PHYSICAL EXAMINATION: GENERAL: The patient is in no acute distress. VITAL SIGNS: Stable. HEART: S1, S2 normal and regular. LUNGS: Good bilateral air exchange. ABDOMEN: Soft and nontender. EXTREMITIES: No edema. No calf swelling. No tenderness. No acute ischemia. CENTRAL NERVOUS SYSTEM: Essentially unchanged. DIAGNOSTIC DATA: Available diagnostic data reviewed. ASSESSMENT: Overall, the patient is medically stable for possible empirical treatment of neurocysticercosis. PLAN: Case and plan discussed with patient at length as ordered. Telemetry monitoring as ordered. Rito High MD
[2017-03-18] MEDS ORDERED: Dexamethasone 10 MG in Sodium Chloride 0.9% 50 ML IVPB SCH (15:15)
--- NOTE | 2017-03-18 15:17 | CP.PCM.PN ---
Subjective - Date & Time of Evaluation Date of Evaluation: 03/18/17 Time of Evaluation: 15:17 - Subjective Subjective: ID Note- Pt. seen and examined today with his family at his bedside. pt. has not had any further seizures since his antiseizure medication was changed to depakote. denies any MCCLURE today. denies any visual problems. Objective - Vital Signs/Intake and Output Vital Signs (last 24 hours): Temp Pulse Resp BP Pulse Ox 97.7 F 78 18 128/79 97 03/18/17 12:03 03/18/17 12:03 03/18/17 12:03 03/18/17 12:03 03/18/17 12:03 - Medications Medications: Current Medications Acetaminophen (Tylenol 325mg Tab) 650 mg PO Q4 PRN PRN Reason: Pain, moderate (4-7) Last Admin: 03/16/17 07:34 Dose: 650 mg Al Hydrox/Mg Hydrox/Simethicone (Maalox Plus 30 Ml) 30 ml PO Q6 PRN PRN Reason: Indigestion / Heartburn Last Admin: 03/15/17 08:49 Dose: 30 ml Cyanocobalamin (Vitamin B12 1000 Mcg/Ml Inj) 1,000 mcg IM DAILY [facility] Last Admin: 03/18/17 08:38 Dose: 1,000 mcg Divalproex Sodium (Depakote Dr(*Bid*)) 750 mg PO BID [facility] Last Admin: 03/18/17 08:38 Dose: 750 mg Famotidine (Pepcid) 20 mg PO BID [facility] Last Admin: 03/18/17 08:38 Dose: 20 mg Ibuprofen (Motrin Tab) 600 mg PO Q6 PRN PRN Reason: Headache Labetalol HCl (Trandate) 10 mg IVP Q12H PRN PRN Reason: Other - Labs Labs: - Additional Findings Additional findings: - Constitutional Appears: No Acute Distress - Head Exam Head Exam: ATRAUMATIC - Eye Exam Eye Exam: EOMI, PERRL - ENT Exam ENT Exam: Normal Oropharynx - Neck Exam Neck Exam: Full ROM Additional comments: supple - Respiratory Exam Respiratory Exam: Clear to Ausculation Bilateral, NORMAL BREATHING PATTERN - Cardiovascular Exam Cardiovascular Exam: RRR, +S1, +S2 - GI/Abdominal Exam GI & Abdominal Exam: Soft, Normal Bowel Sounds Additional comments: NT, ND - Extremities Exam Extremities Exam: Normal Inspection - Neurological Exam Neurological Exam: Alert, Awake, Oriented x 3 Laboratory Results - last 72 hr 03/12/17 03/14/17 03/15/17 20:10 05:20 18:03 POC Glucose (mg/dL) 88 CSF Toxo. gondii IgG <0.90 Valproic Acid TB Test (QFT) Nil TNP TB Test Mitogen - Nil TNP TB Test TB - Nil TNP TB Test (QFT) TNP 03/18/17 17:23 POC Glucose (mg/dL) CSF Toxo. gondii IgG Valproic Acid 66.2 TB Test (QFT) Nil TB Test Mitogen - Nil TB Test TB - Nil TB Test (QFT) Microbiology 03/12/17 20:10 Cerebral Spinal Fluid CSF Culture - Preliminary NO GROWTH AFTER 4 DAYS 03/12/17 20:10 Cerebral Spinal Fluid Fungal Culture - Preliminary 03/11/17 22:30 Blood-Venous Blood Culture - Final NO GROWTH AFTER 5 DAYS 03/11/17 22:30 Blood-Venous Gram Stain - Final TEST NOT PERFORMED 03/11/17 22:41 Blood-Venous Blood Culture - Final NO GROWTH AFTER 5 DAYS 03/11/17 22:41 Blood-Venous Gram Stain - Final 03/12/17 20:10 Other: Please Indicate Mycobacterial Culture - Preliminary Accession No. : [id number] Patient Name / ID : DANIKA RESENDEZ I / [id number] Exam Date : 03/17/2017 16:16:10 ( Approved ) Study Comment : Sex / Age : M / 31Y Creator : Lauri Almazan MD Dictator : Lauri Almazan MD New Car Salesperson : Weighing Station Operator : Lauri Almazan MD Approver2 : Report Date : 03/17/2017 17:48:02 My Comment : PROCEDURE: CT Chest, Abdomen with intravenous contrast HISTORY: attn liver/ lung cyst COMPARISON: None. TECHNIQUE: IV dose administered: 95 cc Omnipaque 300 Radiation dose: Total exam DLP = 948.35 mGy-cm. This CT exam was performed using one or more of the following dose reduction techniques: Automated exposure control, adjustment of the mA and/or kV according to patient size, and/or use of iterative reconstruction technique. FINDINGS: CT CHEST WITH CONTRAST: LUNGS: Clear. No nodule, mass or consolidation. MEDIASTINUM: Unremarkable. Normal caliber aorta and pulmonary arterial trunk. No aortic dissection. Normal size heart. LYMPH NODES: Unremarkable. PLEURA: Unremarkable. No pneumothorax. No pleural fluid. BONES: Unremarkable. OTHER FINDINGS: None. CT ABDOMEN AND PELVIS: LIVER: Hepatic steatosis. No focal masses. No intrahepatic bile duct dilatation or perihepatic ascites. GALLBLADDER AND BILE DUCTS: Unremarkable. PANCREAS: Unremarkable. No gross lesion or ductal dilatation. SPLEEN: Unremarkable. ADRENALS: Unremarkable. No mass. KIDNEYS AND URETERS: Unremarkable. No hydronephrosis. No solid mass. VASCULATURE: Unremarkable. No aortic aneurysm. BOWEL: Unremarkable. No obstruction. No gross mural thickening. APPENDIX: Normal appendix, as visualized. The entire appendix is not seen. PERITONEUM: Unremarkable. No free fluid. No free air. LYMPH NODES: Unremarkable. No enlarged lymph nodes. BONES: No acute fracture. OTHER FINDINGS: None. IMPRESSION: No significant or acute findings to account for/ related to the clinical presentation. Additional benign and/or incidental findings described above. Assessment and Plan (1) Episode of generalized weakness Status: Acute (2) Slurring of speech Status: Acute (3) Cyst of brain Status: Acute - Assessment and Plan (Free Text) Assessment: A/P- 31 year old amle with c/o ? slurred speech epsiodes yesterday , found to have ? neurocysticercosis on BRAIN MRI report. no new seizure activity on depakote. afebrile normal wbc count CSF cell count - 0 wbc CSF vdrl- neg await CSF - Toxo and Tenia solium results. await tenia AB and antigen serology ( as per lab will be sent to specialized lab out of state)). HIV Ab- neg csf cx - neg and csf vdrl- neg csf afb- neg new brain ct report- ? arachnoid cyst vs possible neurocysticercosis as per radiologist's report. and as per radiology report the cyst are calcified plan- had a lengthy discussion with the neurologist and after further review of the imaging and the fact that one of the cysts is arachnoid cyst and the other 2 are calcified which would mean most likely old and inactive cyst and since pt. has not had any further seizure on the new antiseizure medication ( depakote) it would be best to continue patient on the anti-seizure medication and not to start antiparasitic medication at this time since that can lead to activation of the inactive cysts and possibly cause inflammation in the brain and hence to be d/c home on the depakote medication if level are therapeutic. However, advised patient at length if he develops any other seizure like episodes at home or any pressure in head or change in vision to immediately call EMS and return to ED and at that time both me and Neurologist agree that at that time antiparasitic along with steroids should be initiated. will also f/u the results of the tenia solium AG and AB that were sent to reference lab. Pt. also to have f/u with the neurologist next week as outpatient. Pt. advised to avoid driving till cleared by neurologist. also advised to not go back to work till cleared by neurologist and his PCP. Pt. verbalizes full understanding of all above and agrees with above plan of care.
--- NOTE | 2017-03-18 17:30 | CP.PCM.PN ---
Subjective - Date & Time of Evaluation Date of Evaluation: 03/18/17 Time of Evaluation: 17:26 - Subjective Subjective: Mr. Fernandez Francois was seen and examined today at bedside. He denied headache, nausea, chest pain, weakness, sensory changes or speech difficulty. He has not had any events consisting of weakness or speech changes since being on Depakote. There were no acute events overnight. Objective - Vital Signs/Intake and Output Vital Signs (last 24 hours): Temp Pulse Resp BP Pulse Ox 98.7 F 76 18 136/87 100 03/18/17 17:00 03/18/17 17:00 03/18/17 17:00 03/18/17 17:00 03/18/17 17:00 - Medications Medications: Current Medications Acetaminophen (Tylenol 325mg Tab) 650 mg PO Q4 PRN PRN Reason: Pain, moderate (4-7) Last Admin: 03/16/17 07:34 Dose: 650 mg Al Hydrox/Mg Hydrox/Simethicone (Maalox Plus 30 Ml) 30 ml PO Q6 PRN PRN Reason: Indigestion / Heartburn Last Admin: 03/15/17 08:49 Dose: 30 ml Albendazole (Albenza 200 Mg Tab) 400 mg PO Q12 [facility] Cyanocobalamin (Vitamin B12 1000 Mcg/Ml Inj) 1,000 mcg IM DAILY [facility] Last Admin: 03/18/17 08:38 Dose: 1,000 mcg Divalproex Sodium (Depakote Dr(*Bid*)) 750 mg PO BID [facility] Last Admin: 03/18/17 16:10 Dose: 750 mg Famotidine (Pepcid) 20 mg PO BID [facility] Last Admin: 03/18/17 16:12 Dose: 20 mg Dexamethasone 10 mg/ Sodium (Chloride) 51 mls @ 102 mls/hr IVPB DAILY [facility] Last Admin: 03/18/17 16:27 Dose: 102 mls/hr Ibuprofen (Motrin Tab) 600 mg PO Q6 PRN PRN Reason: Headache Labetalol HCl (Trandate) 10 mg IVP Q12H PRN PRN Reason: Other - Labs Labs: 03/15/17 05:15 03/15/17 05:15 - Neurological Exam Neurological Exam: Alert, Awake, CN II-XII Intact, Normal Gait, Oriented x3 Neuro motor strength exam: Left Upper Extremity: 5, Right Upper Extremity: 5, Left Lower Extremity: 5, Right Lower Extremity: 5 Assessment and Plan (1) Cyst of brain Assessment & Plan: Discussed plan to check valproic acid level and if therapeutic, will send home on current dose or adjust accordingly. He will follow up with me as outpatient and we will continue monitoring him. If he has any subsequent events, he will return to the ED for admission and possible treatment with antiparasitic regimen. He was given my contact information and cell phone number if there are any questions or concerns. Status: Acute
[2017-03-18 20:41] VITALS: BP 138/91; PULSE 78; RESP 25; TEMP 98; O2SAT 98
[2017-03-19 01:36] LABS: TB ANTIGEN MINUS NIL 0.09 IU/mL
== END 2017-03-18 20:25 | disposition home or self-care (01) | DRG 35 ==
LOC: H.ER 19:56 → H.ERHOLD 03-12 00:25 → H.TEL 03-12 03:07 → OBSVTOIN 03-13 00:25 → H.TEL 03-16 18:18 → H.ICU/CCU 03-18 17:13
PROVIDERS: ADMIT Internal Medicine; ATTEND Internal Medicine
PROC: 009U3ZX Drainage of Spinal Canal, Percutaneous Approach, Diagnostic (ICD-10-PCS; principal; 2017-03-14)
DX: G93.0 Cerebral cysts (principal); I10 Essential (primary) hypertension; G40.109 Localization-related (focal) (partial) symptomatic epilepsy and epileptic syndromes with simple partial seizures, not intractable, without status epilepticus; R47.1 Dysarthria and anarthria; R53.1 Weakness; R20.0 Anesthesia of skin

== ENCOUNTER 2017-04-07 18:55 | Emergency (ER) | payer MEDICAID ==
[2017-04-07 19:06] VITALS: TEMP 97.7
--- NOTE | 2017-04-07 19:44 | ED PDOC ---
HPI:STROKE - Historian Historian: Patient - Onset Onset: Weeks - Timing Timing: Currently Symptomatic - Context Context: Walking - Location Locate right:: Face - Notes: Notes:: Noe Francois is a 31 year old male with a history of epilepsy as a child and an arachnoid cyst that was diagnosed last month that presents to the ED with a chief complaint of intermittent difficulty with speech, right-sided facial numbness, headaches, and intermittent right upper and lower extremity weakness that he has been experiencing for the last month. Patient states that when he was walking home from work today around 5:30 PM he started to feel right facial numbness and experienced difficulty speaking, at which point he called 911. Of Note: Patient reports that his neurologist, Dr. Tobin, put him on Keppra, but recently told him to stop taking it. NIHSS Stroke Scale - Date/Time Evaluation Performed Date Performed: 04/07/17 Time Performed: 19:15 When Was NIHSS Performed: Baseline - How Severe is the Stroke Level of Consciousness: 0=Alert LOC to Questions: 0=Both comments correct LOC to commands: 0=Obeys both correctly Best Gaze: 0=Normal Visual: 0=No visual loss Facial: 0=Normal Motor Arm - Left: 0=No drift Motor Arm - Right: 0=No drift Motor Leg - Left: 0=No drift Motor Leg - Right: 0=No drift Limb Ataxia: 0=Absent Sensory: 0=Normal Best Language: 0=No aphasia Dysarthia: 0=Normal articulation Extinction & Inattention (Neglect): 0=Normal, no object Score: 0 rTPA Inclusion/Exclusion - Refusal of Treatment Patient Refused Treatment: No - Inclusion Criteria for Altepase Patient is 18 years or Older: Yes The Clinical Diagnosis of Ischemic Stroke That is Causing a Potentially Disabling Neurological Deficit: No Time of Onset is Well Established to be Less Than 270 Minute Before Treatment Would Begin: No Risk/Benefit Discussed With Patient/Family Member Present: No - Exclusion Criteria for Altepase Uncontrolled Hypertension at Time of Treatment (Systolic BP above 185 or Diastolic BP above 110 mmHg): No Past Medical History Reviewed: Historical Data, Nursing Documentation, Vital Signs Vital Signs: Last Vital Signs Temp 97.7 F 04/07/17 19:03 Pulse 113 H 04/07/17 19:03 Resp 18 04/07/17 19:03 BP 141/100 H 04/07/17 19:03 Pulse Ox 99 04/07/17 19:03 - Medical History PMH: HTN, Seizures (as a child) Denies: Chronic Kidney Disease - Family History Family History: States: Unknown Family Hx - Home Medications Home Medications: Ambulatory Orders Medication Instructions Recorded Cyanocobalamin [Vitamin B12 1000 1,000 mcg IM DAILY vial 03/15/17 mcg/ml Inj] Famotidine [Pepcid] 20 mg PO BID #28 tab 03/15/17 levETIRAcetam [Keppra] 500 mg PO BID #60 tab 03/15/17 Divalproex [Depakote DR(*BID*)] 750 mg PO BID #60 ect NS 03/18/17 Divalproex [Depakote DR(*BID*)] 750 mg PO BID #30 tcp 04/07/17 Polymyxin/Trimethoprim Sulfate 10 ml OD TID #1 bottle 04/07/17 [Polytrim Ophth Soln] - Allergies Allergies/Adverse Reactions: Allergies Allergy/AdvReac Type Severity Reaction Status Date / Time No Known Allergies Allergy Verified 03/11/17 20:09 Review of Systems Neurological: Positive for: Weakness (right-sided upper and lower extremity weakness), Numbness (right sided facial numbness), Change in Speech (difficulty with speech) Physical Exam - Reviewed Nursing Documentation Reviewed: Yes Vital Signs Reviewed: Yes - Physical Exam Appears: Positive for: Non-toxic, In Acute Distress (Patient is anxious appearing) Head Exam: Positive for: ATRAUMATIC, NORMOCEPHALIC Skin: Positive for: Normal Color, Warm Eye Exam: Positive for: Normal appearance, EOMI, PERRL Cardiovascular/Chest: Positive for: Regular Rate, Rhythm. Negative for: Murmur Respiratory: Positive for: Normal Breath Sounds. 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 Negative for: Motor/Sensory Deficits - Laboratory Results Result Diagrams: 04/07/17 19:30 04/07/17 19:30 - ECG O2 Sat by Pulse Oximetry: 99 (RA) Pulse Ox Interpretation: Normal Medical Decision Making Medical Decision Making: Impression: Possible Seizure vs. Complication of Arachnoid Cysts vs. Anxiety Plan: * CT Head w/o contrast * EKG * Chest X-Ray * CMP * CBC * PTT * PT * Carbamazepine * Dilantin * Hemoglobin A1C * [place] * Magnesium * Lipid Panel * Troponin * Valproic Acid * Urine Drug Screen * Reevaluation 21:[address] Tobin, states that patient's Depakote level was subtherapeutic and to administer 1 gram IV now. Additionally stated to send patient home if patient is asymptomatic afterwards. 2230 Pt. states that his symptoms have completely resolved and he wishes to go home. Admission offered but patient declining at this time, will increase depakote to 750mg BID as per recommendations of Dr. Mcdermott, patient understands to f/u w/ Dr. Mcdermott as an outpatient as soon as possible. Return precautions given. Scribe Attestation: Documented by Shira Butcher, acting as a scribe for Efren Ching MD. Provider Scribe Attestation: All medical record entries made by the Scribe were at my direction and personally dictated by me. I have reviewed the chart and agree that the record accurately reflects my personal performance of the history, physical exam, medical decision making, and the department course for this patient. I have also personally directed, reviewed, and agree with the discharge instructions and disposition. Disposition - Clinical Impression Clinical Impression: Cyst of brain - Disposition Referrals: David Mcdermott MD [Medical Doctor] - Disposition Time: 22:30 Condition: STABLE Prescriptions: Divalproex [Depmed DWYER(*BID*)] 750 mg PO BID #30 tcp Polymyxin/Trimethoprim Sulfate [Polytrim Ophth Soln] 10 ml OD TID #1 bottle Instructions: Epilepsy (DC) Forms: [facility] ([place])
[2017-04-07 19:53] LABS: BASO % 0.6 % (0.0-2.0); EOS # 0.1 K/uL (0.0-0.7); EOS % 1.1 % (0.0-4.0); HEMATOCRIT 42.2 % (35.0-51.0); LYMPH # 1.6 K/uL (1.0-4.3); LYMPH % 22.6 % (20.0-40.0); MEAN CELL VOLUME 85.1 fl (80.0-94.0); MEAN CORPUSCULAR HEMOGLOBIN 28.8 pg (27.0-31.0); MEAN CORPUSCULAR HGB CONC 33.9 g/dL (33.0-37.0); MEAN PLATELET VOLUME 12.3 fl (7.2-11.7); MONO # 0.8 K/uL (0.0-0.8); MONO % 10.6 % (0.0-10.0); NEUT # 4.7 K/uL (1.8-7.0); NEUT % 65.1 % (50.0-75.0); WHITE BLOOD COUNT 7.3 K/uL (4.8-10.8)
[2017-04-07 20:08] LABS: PARTIAL THROMBOPLASTIN TIME 30.8 Seconds (25.6-37.1)
[2017-04-07 20:11] VITALS: BP 159/93; PULSE 100; RESP 11
[2017-04-07 20:13] VITALS: O2SAT 99
[2017-04-07 20:15] LABS: ALB/GLOB RATIO 1.4 (1.0-2.1); ALCOHOL SERUM < 10 mg/dl (0-10); ALKALINE PHOSPHATASE 99 U/L (38-126); ALT/SGPT 52 U/L (21-72); AST/SGOT 30 U/L (17-59); BILIRUBIN,TOTAL 0.5 mg/dl (0.2-1.3); BLOOD UREA NITROGEN 17 mg/dl (9-20); CALCIUM 9.7 mg/dL (8.4-10.2); CARBON DIOXIDE 23 mmol/L (22-30); CHLORIDE 104 mmol/L (98-107); CHOLESTEROL 208 mg/dL (0-199); GFR AFRICAN-AMERICAN > 60; GLUCOSE,RANDOM 95 mg/dL (75-110); MAGNESIUM 1.7 MG/DL (1.6-2.3); POTASSIUM 3.7 MMOL/L (3.6-5.0); SODIUM 141 mmol/l (132-148); TOTAL PROTEIN 7.8 G/DL (6.3-8.2)
--- NOTE | 2017-04-07 20:15 | CT ---
EXAM: CT Head Without Intravenous Contrast EXAM DATE/TIME: 04/07/2017 7:17 PM CLINICAL HISTORY: 31 years old, male; Signs and symptoms; Weakness, extremity and weakness, facial; Right; Additional info: R sided weakness, intermittent, r facial numbness; findings suggestive of neurocysticercosis of varying ages seen on order studies the TECHNIQUE: Axial computed tomography images of the head/brain without intravenous contrast. All CT scans at this facility use one or more dose reduction techniques, viz.: automated exposure control; ma/kV adjustment per patient size (including targeted exams where dose is matched to indication; i.e. head); or iterative reconstruction technique. Coronal and sagittal reformatted images were created and reviewed. COMPARISON: CT - HEAD W/O (CODE STROKE) 03/15/2017 6:11:36 PM FINDINGS: Brain: Ventricles are normal in size and configuration. There is no midline shift. There is no intra-axial or extra-axial hemorrhage. There continues to be a peripheral fluid density lesion in the posterior left frontal lobe approximately 1.8 x 1.9 cm, unchanged. Left retrocerebellar 2 x 1.8 cm fluid collection is unchanged. There is a small peripheral calcification, unchanged. Small fluid collection with calcification in the anterior left middle cranial fossa is unchanged. There are basal ganglia calcifications bilaterally, unchanged. Fleming-white differentiation is maintained. Ventricles: See above. Bones/joints: Bones: Cranial vault is intact. There is no acute sinusitis. 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 Soft tissues: unremarkable Sinuses: See above. Mastoid air cells: Ears and mastoids: Middle ears and mastoids are unremarkable Orbits: Orbital contents are unremarkable. IMPRESSION: No acute intracranial abnormality; low attenuation lesions two with associated calcification, unchanged
[2017-04-07 20:17] LABS: CARBAMAZEPINE < 3.0 ug/mL (4.0-12.0); LITHIUM < 0.2 MMOL/L (0.6-1.2)
[2017-04-07 20:20] LABS: VALPROIC ACID 12.7 ug/mL (50.0-100.0)
[2017-04-07] MEDS ORDERED: Valproate 1,000 MG in Sodium Chloride 0.9% 100 ML IVPB ONE (21:02)
--- NOTE | 2017-04-08 08:03 | RAD ---
HISTORY: intermittent weakness COMPARISON: Comparison is made to 03/11/2017 FINDINGS: LUNGS: No evidence of new infiltrate or consolidation in the lungs. PLEURA: No significant pleural effusion identified, no pneumothorax apparent. CARDIOVASCULAR: Normal. OSSEOUS STRUCTURES: No significant abnormalities. VISUALIZED UPPER ABDOMEN: Normal. OTHER FINDINGS: None. IMPRESSION: No significant interval change since the previous exam noted.
--- NOTE | 2017-04-08 11:22 | CARD ---
APPROVED REPORT EKG Measurement Heart [id number] <Conclusion> Sinus tachycardia Inferior infarct, age undetermined Abnormal ECG
== END 2017-04-08 00:35 | disposition home or self-care (01) ==
LOC: H.ER 18:55
DX: G93.0 Cerebral cysts (principal); I10 Essential (primary) hypertension; Z86.69 Personal history of other diseases of the nervous system and sense organs
CPT/HCPCS: 70450; 71010; 80053; 80061; 80156; 80164; 80178; 80185; 80320; 80324; 80345; 80346; 80349; 80353; 80358; 80361; 82948; 83036; 83735; 83992; 84484; 85025; 85610; 85730; 86850; 86900; 93005; 96365; 99283; J2765

== ENCOUNTER 2017-04-18 17:24 | Inpatient (IN) | payer MEDICAID ==
[2017-04-18] MEDS ORDERED: Sodium Chloride 0.9% 1,000 ML IV STA (18:31)
--- NOTE | 2017-04-18 18:41 | ED PDOC ---
HPI: General Adult Time Seen by Provider: 04/18/17 18:17 Chief Complaint (Nursing): Weakness/Neurological Deficit Chief Complaint (Provider): Numbness History Per: Patient History/Exam Limitations: no limitations Onset/Duration Of Symptoms: Days (Today morning) Additional Complaint(s): Pt. states today at 7am at a brief pinch headache on the top of his head, mild, not the worst pain in his life. Went away and then at 1pm had R arm, leg, and face numbness. This triggered him to come to the ER. Has had similar multiple times in the past and was here approx [address] Lopes and states related to an arachnoid cyst in his brain. No vision changes, dizziness, weakness, fever, chills, neck pain. No dyspnea, chest pain. Past Medical History Reviewed: Nursing Documentation, Vital Signs Vital Signs: Last Vital Signs Temp 98.9 F 04/18/17 17:59 Pulse 84 04/18/17 17:59 Resp 16 04/18/17 17:59 BP 147/79 04/18/17 17:59 Pulse Ox 100 04/18/17 22:12 - Medical History PMH: HTN, Seizures (as a child) Denies: Chronic Kidney Disease Other PMH: arachnoid cyst - Surgical History Surgical History: No Surg Hx - Family History Family History: States: Unknown Family Hx - Living Arrangements Living Arrangements: With Family - Social History Current smoker - smoking cessation education provided: No Alcohol: None Drugs: Denies - Home Medications Home Medications: Ambulatory Orders Medication Instructions Recorded Cyanocobalamin [Vitamin B12 1000 1,000 mcg IM DAILY vial 03/15/17 mcg/ml Inj] Famotidine [Pepcid] 20 mg PO BID #28 tab 03/15/17 levETIRAcetam [Keppra] 500 mg PO BID #60 tab 03/15/17 Divalproex [Depakote DR(*BID*)] 750 mg PO BID #30 tcp 04/07/17 Polymyxin/Trimethoprim Sulfate 10 ml OD TID #1 bottle 04/07/17 [Polytrim Ophth Soln] - Allergies Allergies/Adverse Reactions: Allergies Allergy/AdvReac Type Severity Reaction Status Date / Time No Known Allergies Allergy Verified 04/18/17 17:59 Review of Systems ROS Statement: Except As Marked, All Systems Reviewed And Found Negative Neurological: Positive for: Numbness, Headache Physical Exam - Reviewed Nursing Documentation Reviewed: Yes Vital Signs Reviewed: Yes - Physical Exam Appears: Positive for: Non-toxic, No Acute Distress Head Exam: Positive for: ATRAUMATIC, NORMAL INSPECTION, NORMOCEPHALIC Skin: Positive for: Normal Color, Warm, DRY Eye Exam: Positive for: EOMI, Normal appearance, PERRL ENT: Positive for: Normal ENT Inspection Neck: Positive for: Normal, Painless ROM Cardiovascular/Chest: Positive for: Regular Rate, Rhythm. Negative for: Edema Respiratory: Positive for: CNT, Normal Breath Sounds Gastrointestinal/Abdominal: Positive for: Normal Exam, Bowel Sounds, Soft. Negative for: Tenderness Back: Positive for: Normal Inspection. Negative for: L CVA Tenderness, R CVA Tenderness Extremity: Positive for: Normal ROM. 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 Negative for: Motor/Sensory Deficits, Aphasia, Facial Droop - Laboratory Results Result Diagrams: 04/18/17 18:45 04/18/17 18:45 Interpretation Of Abn Labs: valproic accid 77.2 - ECG ECG: Positive for: Interpreted By Me, Viewed By Me ECG Rhythm: Positive for: Normal QRS, Normal ST Segment, Sinus Rhythm O2 Sat by Pulse Oximetry: 100 Pulse Ox Interpretation: Normal - CT Scan/US head Other Rad Studies (CT/US): Read By Radiologist Other Rad Interpretation: no acute - Progress ED Course And Treament: 2215: Stable. AAOx3. Pain free. Spoke with pt. and Dr. Mcdermott who also spoke with pt./family. He wants pt. to be admitted for obs and to add another seizure medication. 2229: Spoke with Dr. Loco. Will admit and give further orders when pt. reaches floor. Disposition - Clinical Impression Clinical Impression: Seizure, Paresthesia - Patient ED Disposition Is Patient to be Admitted: Yes Counseled Patient/Family Regarding: Studies Performed, Diagnosis - Disposition Disposition Time: 22:00 Condition: FAIR
[2017-04-18 18:57] LABS: HEMATOCRIT 43.8 % (35.0-51.0); MEAN CELL VOLUME 87.2 fl (80.0-94.0); MEAN CORPUSCULAR HEMOGLOBIN 28.9 pg (27.0-31.0); WHITE BLOOD COUNT 6.7 K/uL (4.8-10.8)
[2017-04-18 18:58] LABS: BASO % 0.5 % (0.0-2.0); EOS # 0.1 K/uL (0.0-0.7); EOS % 1.1 % (0.0-4.0); LYMPH # 2.1 K/uL (1.0-4.3); MEAN CORPUSCULAR HGB CONC 33.1 g/dL (33.0-37.0); MONO # 0.8 K/uL (0.0-0.8); NEUT # 3.7 K/uL (1.8-7.0); NEUT % 55.4 % (50.0-75.0); NRBC % 0.1 % (0.0-0.0); RED CELL DISTRIBUTION WIDTH 13.1 % (11.5-14.5)
[2017-04-18 19:02] LABS: ALB/GLOB RATIO 1.4 (1.0-2.1); ALCOHOL SERUM < 10 mg/dl (0-10); ALKALINE PHOSPHATASE 102 U/L (38-126); ALT/SGPT 48 U/L (21-72); AST/SGOT 25 U/L (17-59); BILIRUBIN,TOTAL 0.4 mg/dl (0.2-1.3); BLOOD UREA NITROGEN 11 mg/dl (9-20); CALCIUM 9.4 mg/dL (8.4-10.2); CARBON DIOXIDE 23 mmol/L (22-30); CHLORIDE 104 mmol/L (98-107); GFR AFRICAN-AMERICAN > 60; GLUCOSE,RANDOM 104 mg/dL (75-110); POTASSIUM 4.3 MMOL/L (3.6-5.0); SODIUM 141 mmol/l (132-148); TOTAL PROTEIN 7.5 G/DL (6.3-8.2)
--- NOTE | 2017-04-18 21:52 | CT ---
EXAM: CT Head Without Intravenous Contrast EXAM DATE/TIME: 04/18/2017 6:30 PM CLINICAL HISTORY: 31 years old, male; Pain and signs and symptoms; Weakness, extremity; Right; Headache; Other: Rt sided; Patient HX: HX of childhood epilepsy, and a. Cyst TECHNIQUE: Axial computed tomography images of the head/brain without intravenous contrast. All CT scans at this facility use one or more dose reduction techniques, viz.: automated exposure control; ma/kV adjustment per patient size (including targeted exams where dose is matched to indication; i.e. head); or iterative reconstruction technique. Coronal and sagittal reformatted images were created and reviewed. COMPARISON: CT - HEAD W/O CONTRAST 04/07/2017 7:43:06 PM FINDINGS: Brain: Ventricles are normal in size and configuration. There is no midline shift. There are no intra-axial or extra-axial hemorrhages. Posterior left frontal fluid collection with focal calcification is unchanged. The anterior left frontal calcification is unchanged. Left retrocerebellar fluid collection is unchanged. Fleming-white differentiation is visualized. Ventricles: See above. Bones: Cranial vault is intact. Soft tissues: unremarkable Sinuses: There is no acute sinusitis. There are osteomas in the frontal sinuses. Ears and mastoids: Middle ears and mastoids are unremarkable Orbits: Orbital contents are unremarkable. IMPRESSION: No acute intracranial abnormality
[2017-04-18] MEDS ORDERED: Lacosamide 50 MG Tab PO STA (22:15)
--- NOTE | 2017-04-19 08:12 | CARD ---
APPROVED REPORT EKG Measurement Heart [id number] <Conclusion> Normal sinus rhythm Normal ECG
[2017-04-19] MEDS ORDERED: Pneumococcal 23-Valent Vaccine IM ONE (09:00)
[2017-04-19] MEDS: Divalproex 250 mg DR(BID formulation) PO SCH ×2 (09:28→17:22)
[2017-04-19] MEDS: Enoxaparin 40 mg Syringe SC SCH (09:29)
[2017-04-19] MEDS: Polymyxin/Trimethoprim Ophth Soln OD SCH ×3 (09:29→17:23)
--- NOTE | 2017-04-19 10:29 | MRI ---
PROCEDURE: MRI BRAIN WITHOUT CONTRAST HISTORY: ORDER COMPARISON: Brain MRI dated 03/12/2017 as well as head CTs dated 04/08/2017, 04/07/2017, 03/15/2017 and 03/11/2017. TECHNIQUE: Multiplanar, multisequence MR images of the brain were obtained without intravenous contrast enhancement as requested. FINDINGS: HEMORRHAGE: None DWI: No evidence of an acute or early subacute infarction. BRAIN PARENCHYMA: The prior posterior left frontal peripheral cystic lesion is diminished in size now measuring 1.5 x 0.9 x 1.3 cm compared to 2.1 x 1.7 x 2.2 cm on 03/12/2017 prior MRI. While there is no reactive change seen in the adjacent sulci of the left frontal and parietal lobes, the FLAIR signal within the cystic collection is different now appearing moderately increased compared to completely diminished in signal on prior MRI. This is not felt to represent hemorrhage as gradient echo imaging of fails demonstrate any signal dephasing within this location whatsoever. Signal intensity on T1 is also slightly greater than previously shown although it still remains dark in the yanes matter but clearly brighter than CSF. There is likely at least partial rupture of this cyst with potential disturbance of debris causing signal intensity changes with the exception of only the T2 weighted sequences. Consider infectious or inflammatory process with neoplasm felt to be significantly less likely. Follow-up contrast MRI is advised for additional characterization. No prominent positive mass effect is appreciated once again throughout the exam and there is no additional suspicious extra-axial fluid collection or signal change appreciated above or below the tentorium including throughout the brainstem. A prominent cisterna magna is again appreciated. No acute or subacute brain infarction in the interval. Craniocervical junction appears unremarkable. VENTRICLES: Unremarkable. No hydrocephalus. CRANIUM: Unremarkable. ORBITS: Grossly unremarkable. PARANASAL SINUSES/MASTOIDS: A likely extent cyst is appreciate the left maxillary sinus once again. VASCULAR SYSTEM: Skull base flow voids intact. OTHER FINDINGS: None. IMPRESSION: 1. A diminishing extra-axial lesion is seen at the posterior left frontal lobe with a sulcus NEC in size 2.2 cm greatest dimension down to 1.5 with signal characteristics which are changing in suggested this may not be simply a partially ruptured arachnoid cyst. Follow-up contrast MRI is advised for additional characterization. 2. No additional interval change. Minimal nonspecific punctate white matter changes are seen in the left and right frontal lobes once again. 3. Left maxillary sinus retention cyst again noted.
[2017-04-19] MEDS ORDERED: Iodixanol 320 MG/ML 100 ML BOTTLE IV ONE (12:19)
[2017-04-19] MEDS ORDERED: Sodium Chloride 0.9% 50 ML IV ONE (12:20)
--- NOTE | 2017-04-19 13:32 | CT ---
PROCEDURE: CT Angiography of the Brain and Neck. HISTORY: seizures COMPARISON: None available. TECHNIQUE: CT angiography of the intracranial arteries was performed. Coronal and sagittal maximum intensity projection reformated images were generated. Visipaque 320, 100 cc contrast was utilized. Total radiation dose of 640 mGy was also included in this examination. This CT exam was performed using one or more of the following dose reduction techniques: Automated exposure control, adjustment of the mA and/or kV according to patient size, and/or use of iterative reconstruction technique. FINDINGS: INTERNAL CEREBRAL ARTERIES: Unremarkable. The skull base, petrous, cavernous and supraclinoid segments are bilaterally widely patient. ANTERIOR CEREBRAL ARTERIES: The right A2 anterior cerebral artery appears patent though persistent origin in appearance overall. Otherwise, the bilateral A1 MONALISA and left MONALISA branches unremarkable. Secondary branches off the bilateral A2 segments appear unremarkable grossly. MIDDLE CEREBRAL ARTERIES: Unremarkable. M1 and M2 segments are widely patent. Perisylvian branches grossly symmetric. POSTERIOR CIRCULATION: Basilar Artery: Unremarkable. Distal Vertebral Arteries: Unremarkable. Posterior Cerebral Arteries: Unremarkable. Posterior Inferior Cerebellar Arteries: Unremarkable. ANEURYSM/ VASCULAR MALFORMATIONS: None. OTHER FINDINGS: NECK CT ANGIOGRAM: In the neck, the bilateral common and internal carotid arteries appear widely patent including at the bilateral carotid bulb regions. The bilateral vertebral arteries are widely patent from their origins through the skullbase. Incidentally, the visualized bilateral subclavian arteries appear patent as well as the right brachycephalic artery. IMPRESSION: Unremarkable CT Angiography of the Brain and Neck.
--- NOTE | 2017-04-19 13:36 | MRI ---
PROCEDURE: Magnetic Resonance Angiography Brain HISTORY: seizures COMPARISON: None available. TECHNIQUE: 3D time of flight MR angiography of the intracranial arteries was performed. Rotating maximum intensity projection images were generated. FINDINGS: Motion artifacts degrade the quality examination significantly and the ct angiogram of the neck and head are felt to be more reliable than the images from this examination. INTERNAL CAROTID ARTERIES: Motion artifacts limit reconstructed data sets through the cavernous internal carotid artery segments with no gross stenosis appreciable throughout the visualized or artery's nevertheless. ANTERIOR CEREBRAL ARTERIES: Unremarkable. A1 and A2 segments are widely patent. Smaller distal branches unremarkable, as visualized. MIDDLE CEREBRAL ARTERIES: Unremarkable. M1 and M2 segments are widely patent. Perisylvian branches grossly symmetric. POSTERIOR CIRCULATION: Basilar Artery: No gross stenosis appreciable. Distal Vertebral Arteries: Unremarkable. Posterior Cerebral Arteries: Unremarkable. Posterior Inferior Cerebellar Arteries: Not identified. ANEURYSM/ VASCULAR MALFORMATIONS: None grossly apparent. OTHER FINDINGS: Incidental left maxillary sinus cyst noted. IMPRESSION: Artifact the examination limits the evaluation of the cavernous internal carotid artery segments in particular with no gross stenoses appreciated. Artifacts also limit evaluation the basilar artery. Please see separate CT angiogram of the brain and neck also performed 04/19/2017 which yields more reliable data.
--- NOTE | 2017-04-19 15:46 | CP.PCM.CON ---
History of Present Illness - History of Present Illness History of Present Illness: Mr. Fernandez Francois is a 31-year-old man, who is well known to me from prior admissions, and my experience with him in the outpatient neurology clinic. He was previously admitted for right-side weakness and speech difficulty that was transient and thought to be associated with a left frontal lobe cyst causing seizure-like activity. He has several cysts that may be neurocysticercosis. It was difficult to determine if there were old or new, and we had agreed to treat the symptoms with AEDs to determine if he would improve without anticysticercal medications. However, he continued to have recurrent symptoms despite being on both Keppra and Depakote with therapeutic serum levels. His complaints include headaches, some visual changes, right side weakness and aphasia that resolve after 15-20 minutes. Afterward, he is lethargic and "dizzy " for quite some time. He had an episode last , and another episode yesterday. MRI of the brain was done today and showed several changes in the previous cysts including changes in size (smaller in some dimensions), with increased vasogenic edema. No vascular stenosis or evidence of ischemia was noted on CTA. Review of Systems - Review of Systems All systems: reviewed and no additional remarkable complaints except Past Patient History - Past Medical History & Family History Past Medical History?: No - Past Social History Smoking Status: Never Smoked - CARDIAC Hx Cardiac Disorders: Yes (HTN) - PULMONARY Hx Respiratory Disorders: No - NEUROLOGICAL Hx Neurological Disorder: Yes (SEIZURE) - HEENT Hx HEENT Problems: No - RENAL Hx Chronic Kidney Disease: No - ENDOCRINE/METABOLIC Hx Diabetes Mellitus Type 2: (?) - HEMATOLOGICAL/ONCOLOGICAL Hx AIDS: No Hx Human Immunodeficiency Virus (HIV): No - MUSCULOSKELETAL/RHEUMATOLOGICAL Hx Falls: No - PSYCHIATRIC Hx Psychophysiologic Disorder: No Hx Substance Use: No - SURGICAL HISTORY Hx Surgeries: No - ANESTHESIA Hx Anesthesia: No Hx Anesthesia Reactions: No Hx Malignant Hyperthermia: No Meds Allergies/Adverse Reactions: Allergies Allergy/AdvReac Type Severity Reaction Status Date / Time No Known Allergies Allergy Verified 04/18/17 17:59 - Medications Medications: Current Medications Cyanocobalamin (Vitamin B12 1000 Mcg/Ml Inj) 1,000 mcg IM DAILY NOA Last Admin: 04/19/17 09:30 Dose: 1,000 mcg Divalproex Sodium (Depakote Dr(*Bid*)) 750 mg PO BID [facility] Last Admin: 04/19/17 09:28 Dose: 750 mg Enoxaparin Sodium (Lovenox) 40 mg SC DAILY [facility] PRN Reason: Protocol Last Admin: 04/19/17 09:29 Dose: 40 mg Famotidine (Pepcid) 20 mg PO BID [facility] Last Admin: 04/19/17 09:29 Dose: 20 mg Dexamethasone 10 mg/ Sodium (Chloride) 51 mls @ 102 mls/hr IVPB Q12 [facility] Levetiracetam (Keppra) 250 mg PO BID [facility] Polymyxin/Trimethoprim Sulfate (Polytrim Ophth Soln) 1 drop OD TID [facility] Last Admin: 04/19/17 09:29 Dose: 1 drop Physical Exam - Constitutional Appears: Well - Head Exam Head Exam: ATRAUMATIC, NORMAL INSPECTION, NORMOCEPHALIC - Eye Exam Eye Exam: EOMI, Normal appearance, PERRL - ENT Exam ENT Exam: Mucous Membranes Moist, Normal Exam - Neck Exam Neck exam: Positive for: Normal Inspection - Respiratory Exam Respiratory Exam: Clear to Auscultation Bilateral, NORMAL BREATHING PATTERN - Cardiovascular Exam Cardiovascular Exam: REGULAR RHYTHM, +S1, +S2 - GI/Abdominal Exam GI & Abdominal Exam: Normal Bowel Sounds, Soft. absent: Tenderness - Rectal Exam Rectal Exam: Deferred - Extremities Exam Extremities exam: Positive for: normal inspection - Back Exam Back exam: NORMAL INSPECTION - Neurological Exam Neurological exam: Alert, CN II-XII Intact, Normal Gait, Oriented x3, Reflexes Normal Additional comments: Currently, back to baseline with normal neurological exam and no focal deficits. NIHSS=0 - Psychiatric Exam Psychiatric exam: Normal Affect, Normal Mood - Skin Skin Exam: Dry, Intact, Normal Color, Warm Results - Vital Signs Recent Vital Signs: Last Vital Signs Temp 97.5 F L 04/19/17 12:00 Pulse 88 04/19/17 12:00 Resp 18 04/19/17 12:00 BP 136/93 H 04/19/17 12:00 Pulse Ox 97 04/19/17 12:00 - Labs Result Diagrams: 04/18/17 18:45 04/18/17 18:45 Labs: Laboratory Results - last 24 hr 04/18/17 04/18/17 04/18/17 18:45 18:45 18:45 WBC 6.7 RBC 5.02 Hgb 14.5 Hct 43.8 MCV 87.2 D MCH 28.9 MCHC 33.1 RDW 13.1 Plt Count 114 L MPV 13.0 H Neut % (Auto) 55.4 Lymph % (Auto) 31.0 [place] % (Auto) 12.0 H Eos % (Auto) 1.1 Baso % (Auto) 0.5 Neut # 3.7 Lymph # 2.1 [place] # 0.8 Eos # 0.1 Baso # 0.0 Sodium 141 Potassium 4.3 Chloride 104 Carbon Dioxide 23 Anion Gap 18 BUN 11 Creatinine 0.7 L Est GFR ( Amer) > 60 Est GFR (Non-Af Amer) > 60 Random Glucose 104 Calcium 9.4 Total Bilirubin 0.4 AST 25 ALT 48 Alkaline Phosphatase 102 Troponin I < 0.0120 Total Protein 7.5 Albumin 4.3 Globulin 3.1 Albumin/Globulin Ratio 1.4 Urine Opiates Screen Urine Methadone Screen Ur Barbiturates Screen Valproic Acid 77.2 Ur Phencyclidine Scrn Ur Amphetamines Screen U Benzodiazepines Scrn U Oth Cocaine Metabols U Cannabinoids Screen Alcohol, Quantitative < 10 04/18/17 04/19/17 04/19/17 19:30 00:55 09:10 WBC RBC Hgb Hct MCV MCH MCHC RDW Plt Count MPV Neut % (Auto) Lymph % (Auto) [place] % (Auto) Eos % (Auto) Baso % (Auto) Neut # Lymph # [place] # Eos # Baso # Sodium Potassium Chloride Carbon Dioxide Anion Gap BUN Creatinine Est GFR ( Amer) Est GFR (Non-Af Amer) Random Glucose Calcium Total Bilirubin AST ALT Alkaline Phosphatase Troponin I < 0.0120 < 0.0120 Total Protein Albumin Globulin Albumin/Globulin Ratio Urine Opiates Screen Negative Urine Methadone Screen Negative Ur Barbiturates Screen Negative Valproic Acid Ur Phencyclidine Scrn Negative Ur Amphetamines Screen Negative U Benzodiazepines Scrn Negative U Oth Cocaine Metabols Negative U Cannabinoids Screen Negative Alcohol, Quantitative Assessment & Plan (1) Seizure Assessment and Plan: Will add Vimpat 50 mg BID, with a plan to taper off Keppra and continue Depakote at 750 mg BID. Keppra will be decreased to 250 mg BID for now. EEG will be read to determine seizure focus and if there are epileptiform discharges. Status: Acute Priority: High (2) Cyst of brain Assessment and Plan: There was evidence of increased vasogenic edema. Will start decadron 10 mg IV q12 and discuss with ID the initiation of anticysticercal medications. Status: Acute Priority: High (3) Episode of generalized weakness Status: Resolved (4) Neurocysticercosis Assessment and Plan: This is the suspected diagnosis with some labs still pending from the previous CSF analysis. Status: Acute (5) Slurring of speech Status: Resolved
--- NOTE | 2017-04-19 16:37 | CARD ---
APPROVED REPORT EXAM: Two-dimensional and M-mode echocardiogram with Doppler and color Doppler. Other Information Quality : GoodRhythm : NSR INDICATION Chest Pain 2D DIMENSIONS IVSd0.83 (0.7-1.1cm)LVDd4.90 (3.9-5.9cm) LVOT Diameter2.02 (1.8-2.4cm)PWd0.92 (0.7-1.1cm) IVSs1.56 (0.8-1.2cm)LVDs3.25 (2.5-4.0cm) FS (%) 33.7 %PWs1.36 (0.8-1.2cm) M-Mode DIMENSIONS Left Atrium (MM)3.59 (2.5-4.0cm)IVSd1.00 (0.7-1.1cm) Aortic Root3.50 (2.2-3.7cm)LVDd6.32 (4.0-5.6cm) Aortic Cusp Exc.2.24 (1.5-2.0cm)PWd0.91 (0.7-1.1cm) IVSs1.79 cmFS (%) 36 % LVDs4.06 (2.0-3.8cm)PWs1.32 cm Mitral Valve MV E Phouahri93.2cm/sMV DECEL [id number] A Kzotqinq78.3cm/s MV GDK49goC/A ratio2.1MVA (PHT)3.74cm2 TDI Lateral E' Peak V16.38cm/sMedial E' Peak V9.13cm/sE/Lateral E'4.7 E/Medial E'8.5 Pulmonary Valve PV Peak Tzcpbmhv53.8cm/s LEFT VENTRICLE The left ventricle is normal size. There is normal left ventricular wall thickness. The left ventricular function is normal. The left ventricular ejection fraction is within the normal range. The Ejection Fraction is 65-70%. There is normal LV segmental wall motion. The left ventricular diastolic function is normal. No left ventricle thrombus noted on this study. RIGHT VENTRICLE The right ventricle is normal size. There is normal right ventricular wall thickness. The right ventricular systolic function is normal. ATRIA The left atrium size is normal. The right atrium size is normal. The interatrial septum is intact with no evidence for an atrial septal defect. AORTIC VALVE The aortic valve is normal in structure and function. No aortic regurgitation is present. There is no aortic valvular stenosis. There is no aortic valvular vegetation. MITRAL VALVE The mitral valve is normal in structure and function. There is no evidence of mitral valve prolapse. There is no mitral valve stenosis. There is no mitral valve regurgitation noted. TRICUSPID VALVE The tricuspid valve is normal in structure and function. There is no tricuspid valve regurgitation noted. There is no tricuspid valve prolapse or vegetation. There is no tricuspid valve stenosis. PULMONIC VALVE The pulmonary valve is normal in structure and function. There is no pulmonic valvular regurgitation. There is no pulmonic valvular stenosis. GREAT VESSELS The aortic root is normal in size. The IVC is normal in size and collapses >50% with inspiration. PERICARDIAL EFFUSION The pericardium appears normal. There is no pleural effusion. <Conclusion> The left ventricle is normal size. The left ventricular function is normal. The left ventricular ejection fraction is within the normal range. The Ejection Fraction is 65-70%.
--- NOTE | 2017-04-19 16:48 | CARD ---
APPROVED REPORT EKG Measurement Heart [id number] <Conclusion> Normal sinus rhythm Inferior infarct, age undetermined Abnormal ECG
[2017-04-19] MEDS: Lacosamide 50 MG Tab PO SCH ×2 (17:00→17:24)
[2017-04-19] MEDS: Dexamethasone 10 MG in Sodium Chloride 0.9% 50 ML IVPB SCH (22:00)
--- NOTE | 2017-04-19 23:24 | CP.PCM.HP ---
History of Present Illness - History of Present Illness History of Present Illness: A 31 yr old male who was here on last admission for neurocysticercosis with extensive work up is here today at 7am at a brief pinch headache on the top of his right side head, mild, not the worst pain in his life. Went away and then at 1pm had R arm, leg, and face numbness. This triggered him to come to the ER. Has had similar multiple times in the past and was here approx 1 week ago. as it is interfering with his work also he scared as it is persistent No vision changes, dizziness, weakness, fever, chills, neck pain. No dyspnea , chest pain. Present on Admission - Present on Admission Any Indicators Present on Admission: No Review of Systems - Hematologic/Lymphatic Additional comments: Constitutional: Fatigue and weakness absent: Fever, Frequent Falls, Weight Loss. - EENT Eyes: absent: Blurred Vision, Other Visual Disturbances Nose/Mouth/Throat: absent: Nasal Discharge, Dysphagia, Hoarsness - Cardiovascular Cardiovascular: no Dyspnea on Exertion. absent: Chest Pain, Edema, Palpitations, Pedal Edema, Syncope - Respiratory Respiratory: no Cough. absent: Wheezing, Chest Congestion, Excessive Mucous Production - Gastrointestinal Gastrointestinal: denies Belching, Bloating, Dyspepsia. absent: Change in Stool Character, Constipation, Melena, Nausea, Vomiting - Genitourinary Genitourinary: denies Voiding Freq/Small Amts. absent: Change in Urinary Stream - Musculoskeletal Musculoskeletal: no Arthralgias, Back Pain - Neurological Neurological: absent: Behavioral Changes, Vertigo - Psychiatric Psychiatric: absent: Confusion, Irritability Past Patient History - Past Medical History & Family History Past Medical History?: No - Past Social History Smoking Status: Never Smoked - CARDIAC Hx Cardiac Disorders: Yes (HTN) - PULMONARY Hx Respiratory Disorders: No - NEUROLOGICAL Hx Neurological Disorder: Yes (SEIZURE) - HEENT Hx HEENT Problems: No - RENAL Hx Chronic Kidney Disease: No - ENDOCRINE/METABOLIC Hx Diabetes Mellitus Type 2: (?) - HEMATOLOGICAL/ONCOLOGICAL Hx AIDS: No Hx Human Immunodeficiency Virus (HIV): No - MUSCULOSKELETAL/RHEUMATOLOGICAL Hx Falls: No - PSYCHIATRIC Hx Psychophysiologic Disorder: No Hx Substance Use: No - SURGICAL HISTORY Hx Surgeries: No - ANESTHESIA Hx Anesthesia: No Hx Anesthesia Reactions: No Hx Malignant Hyperthermia: No Meds Allergies/Adverse Reactions: Allergies Allergy/AdvReac Type Severity Reaction Status Date / Time No Known Allergies Allergy Verified 04/18/17 17:59 Physical Exam - Additional Findings Additional findings: - Constitutional Appears: No Acute Distress , NC\AT, obese - Head Exam Head Exam: ATRAUMATIC, NORMAL INSPECTION - Eye Exam Eye Exam: EOMI, Normal appearance, PERRL - ENT Exam ENT Exam: Normal Exam - Neck Exam Neck exam: Positive for: Normal Inspection. Negative for: Thyromegaly - Respiratory Exam Respiratory Exam: Clear to Auscultation Bilateral, NORMAL BREATHING PATTERN - Cardiovascular Exam Cardiovascular Exam: REGULAR RHYTHM, +S1, +S2, Systolic Murmur - GI/Abdominal Exam GI & Abdominal Exam: Normal Bowel Sounds, Soft. absent: Distended, Organomegaly , Tenderness Back exam: NORMAL INSPECTION, lower back paraspinal tenderness - Neurological Exam Neurological exam: Alert, CN II-XII Intact, Oriented x3, mormal motor strength b\l UE\LE.sensations-no gross deficits no focal deficits , reflexes-2 + b\L UE\LE, [place]-negative Skin Exam: Intact, pallor, no wounds noted Results - Vital Signs Recent Vital Signs: Last Vital Signs Temp 98.4 F 04/19/17 20:48 Pulse 75 04/19/17 20:48 Resp 18 04/19/17 20:48 BP 122/69 04/19/17 20:48 Pulse Ox 100 04/19/17 20:48 - Labs Result Diagrams: 04/26/17 16:08 04/26/17 16:08 Labs: Laboratory Results - last 24 hr 04/19/17 04/19/17 00:55 09:10 Troponin I < 0.0120 < 0.0120 - Imaging and Cardiology CT scan - head Status: Report reviewed by me MRI - head Status: Report reviewed by me Assessment & Plan (1) Paresthesia Status: Acute (2) Cyst of brain Status: Acute Priority: High (3) Episode of generalized weakness Status: Resolved (4) Seizure Status: Chronic Priority: Medium - Assessment and Plan (Free Text) Assessment: did look into past records- diagnosed with possible neurocysticercosis, recurrence of symptoms-MRI showing- left frontal lobe cyst carly neurocheks q 6hr neurology consult ID consult contine meds from home seizure precautions. Decision To Admit - Pt Status Changed To: Hospital Disposition Of: Inpatient - Admit Certification Admit to Inpatient:: After my assessment, the patient will require hospitalization for at least two midnights. This is because of the severity of symptoms shown, intensity of services needed, and/or the medical risk in this patient being treated as an outpatient. - . Bed Request Type: Telemetry Admitting Physician: Brain Loco
--- NOTE | 2017-04-20 03:49 | EEG ---
This is a 16-channel electroencephalogram of awake and drowsy adult. During the study, photic stimulation was performed, hyperventilation was not performed. Resting electroencephalogram consists of high theta mixed with low alpha activities, about 9 to 10 hertz noted at the parietal and occipital leads. Anteriorly, fast activity superimposed with 2 to 3 hertz delta activity seen. Intermittent movement artifact contaminated the background rhythm. Photic stimulation did not evoke driving response noted at 2 to 20 hertz. IMPRESSION: This is a normal electroencephalogram of awake and drowsy adult. During the study, neither electroencephalographic paroxysmal activities nor focal slowing noted. Aneesh Mota MD
[2017-04-20] MEDS: Divalproex 250 mg DR(BID formulation) PO SCH ×2 (08:36→16:55)
[2017-04-20] MEDS: Lacosamide 50 MG Tab PO SCH ×2 (08:36→17:06)
[2017-04-20] MEDS: Dexamethasone 10 MG in Sodium Chloride 0.9% 50 ML IVPB SCH ×2 (08:36→20:59)
[2017-04-20] MEDS: Polymyxin/Trimethoprim Ophth Soln OD SCH ×3 (08:37→16:57)
[2017-04-20] MEDS: Enoxaparin 40 mg Syringe SC SCH (08:37)
--- NOTE | 2017-04-20 12:24 | CP.PCM.PN ---
Subjective - Date & Time of Evaluation Date of Evaluation: 04/20/17 Time of Evaluation: 12:18 - Subjective Subjective: Mr. Fernandez Francois was seen and examined today at bedside in the ICU. He had an episode of headache earlier, and continues to feel lethargic, but is otherwise okay with no reported seizure activity. I reviewed the EEG and there are still abnormalities noted in the left frontal region. Objective - Vital Signs/Intake and Output Vital Signs (last 24 hours): Temp Pulse Resp BP Pulse Ox 98.2 F 107 H 16 127/77 97 04/20/17 08:00 04/20/17 09:00 04/20/17 09:00 04/20/17 09:00 04/20/17 09:00 - Medications Medications: Current Medications Cyanocobalamin (Vitamin B12 1000 Mcg/Ml Inj) 1,000 mcg IM DAILY [facility] Last Admin: 04/20/17 08:37 Dose: 1,000 mcg Divalproex Sodium (Depakote Dr(*Bid*)) 750 mg PO BID [facility] Last Admin: 04/20/17 08:36 Dose: 750 mg Enoxaparin Sodium (Lovenox) 40 mg SC DAILY [facility] PRN Reason: Protocol Last Admin: 04/20/17 08:37 Dose: 40 mg Famotidine (Pepcid) 20 mg PO BID [facility] Last Admin: 04/20/17 08:37 Dose: 20 mg Dexamethasone 10 mg/ Sodium (Chloride) 51 mls @ 102 mls/hr IVPB Q12 [facility] Last Admin: 04/20/17 08:36 Dose: 102 mls/hr Levetiracetam (Keppra) 250 mg PO BID [facility] Last Admin: 04/20/17 08:37 Dose: 250 mg Polymyxin/Trimethoprim Sulfate (Polytrim Ophth Soln) 1 drop OD TID [facility] Last Admin: 04/20/17 08:37 Dose: 1 drop - Labs Labs: 04/18/17 18:45 04/18/17 18:45 - Neurological Exam Additional comments: Neurologically unchanged compared with previous examination. Assessment and Plan (1) Seizure Assessment & Plan: Stable, will continue readjusting AED to maintain on Vimpat and Depakote. Status: Acute (2) Cyst of brain Assessment & Plan: Some tests still pending per ID for echinococcus vs neurocysticercosis. Will discuss plan with ID for starting albendazole or deciding if neurosurgery is an option. Status: Acute (3) Episode of generalized weakness Status: Resolved (4) Neurocysticercosis Status: Chronic (5) Slurring of speech Status: Resolved
--- NOTE | 2017-04-20 12:36 | CP.PCM.CON ---
History of Present Illness - History of Present Illness History of Present Illness: Infectious Disease Consult Note- asked to see this patietn at the request of for ? neurocysticercosis HPI- patient known to me from his last admission here in 03/2017. Pt. is a 31 year old male originally from [place] been in [place] for apst 17 years who on last admission was admitted with seizure like activity , namely speech disturbance and right sided weakness and was found to have 2 cyst in his Brain CT and MRI as per radiology reports and it was felt that his seizure like activity was from the frontal lobe cyst and he was initially started on keppra and later he was switched to depakote by neurologist and since his symptoms resolved he was d/c home and to f/u with the neurologist and his blood work up inlcuding Tenia solium serology was still pending as it was send out lab ( not done at the hospital as per lab ). It was felt starting antiparasitic meds might cause edema of the cyst and possibly cause more edema and seizures and was hard to determine if the cysts were old the cyst were read as calcified and I decided pt. stable to be d/c home on anti-seizure meds and would f/u the serology results and to see if he would improve without antiparasitic medication but he was advised if he developed any more seizure like activity to return to ED. Pt. has been f/u with neurologist and has been compliant with his antiseizure meds, however, he had one episode of again tongue and speech difficulty adn came to ED last week and was found to have subtherapeutic depakote level which was adjusted by neurologist and was not admitted at that time and pt. as fine until 2 days ago when he again had right sided tingling sensation/weakness and speech difficulty and so pt. was admitted . on last admission pt. also had spinal tap done and CSF cell count was nil and toxo IGG and cyticerci in the csf was negative have been f/u with lab all along and his tenia solium serolgy was still pending but today spoke again with lab adn MARYJANE of cyticerci positive, western blot not done. strongyloides - negative echonococcus IGG pos but western blot - negative MRI of the brain was done yesterday and showed ? collapse /rupture of the previous cyst with increased vasogenic edema as per radiologist report. . No vascular stenosis or evidence of ischemia was noted on CTA. Review of Systems - Review of Systems Review of Systems: ROS- denies any fever or chills, minimal MCCLURE in back of the head but has resolved, denies any neck pain or stiffness, slightly blurry vision at times but resolved on its own, denies diplopia, denies any Nausea, denies any cough, denies any chest pain, denies any sob, denies any abd. pain, denies any dysurea, denies any diarrhea states had 2 episodes of speech difficulty and tongue not feeling right and right sided arm and hand hand tingling sensation lasting few minutes and then resolves. Past Patient History - Past Medical History & Family History Past Medical History?: No - Past Social History Smoking Status: Never Smoked Alcohol: None Drugs: Denies Home Situation {Lives}: With Family - CARDIAC Hx Hypertension: Yes - PULMONARY Hx Respiratory Disorders: No - NEUROLOGICAL Hx Neurological Disorder: Yes (SEIZURE) - HEENT Hx HEENT Problems: No - RENAL Hx Chronic Kidney Disease: No - ENDOCRINE/METABOLIC Hx Diabetes Mellitus Type 2: (?) - HEMATOLOGICAL/ONCOLOGICAL Hx Blood Disorders: No - MUSCULOSKELETAL/RHEUMATOLOGICAL Hx Falls: No - PSYCHIATRIC Hx Psychophysiologic Disorder: No Hx Substance Use: No - SURGICAL HISTORY Hx Surgeries: No - ANESTHESIA Hx Anesthesia: No Hx Anesthesia Reactions: No Hx Malignant Hyperthermia: No Meds Allergies/Adverse Reactions: Allergies Allergy/AdvReac Type Severity Reaction Status Date / Time No Known Allergies Allergy Verified 04/18/17 17:59 - Medications Medications: Current Medications Cyanocobalamin (Vitamin B12 1000 Mcg/Ml Inj) 1,000 mcg IM DAILY [facility] Last Admin: 04/20/17 08:37 Dose: 1,000 mcg Divalproex Sodium (Depakote Dr(*Bid*)) 750 mg PO BID [facility] Last Admin: 04/20/17 08:36 Dose: 750 mg Enoxaparin Sodium (Lovenox) 40 mg SC DAILY [facility] PRN Reason: Protocol Last Admin: 04/20/17 08:37 Dose: 40 mg Famotidine (Pepcid) 20 mg PO BID [facility] Last Admin: 04/20/17 08:37 Dose: 20 mg Dexamethasone 10 mg/ Sodium (Chloride) 51 mls @ 102 mls/hr IVPB Q12 [facility] Last Admin: 04/20/17 08:36 Dose: 102 mls/hr Levetiracetam (Keppra) 250 mg PO BID [facility] Last Admin: 04/20/17 08:37 Dose: 250 mg Polymyxin/Trimethoprim Sulfate (Polytrim Ophth Soln) 1 drop OD TID [facility] Last Admin: 04/20/17 12:34 Dose: 1 drop Physical Exam - Constitutional Appears: Non-toxic, No Acute Distress - Head Exam Head Exam: ATRAUMATIC - Eye Exam Eye Exam: EOMI, PERRL - ENT Exam ENT Exam: Normal Oropharynx - Neck Exam Neck exam: Positive for: Full Rom Additional comments: supple - Respiratory Exam Respiratory Exam: Clear to Auscultation Bilateral, NORMAL BREATHING PATTERN - Cardiovascular Exam Cardiovascular Exam: RRR, +S1, +S2 - GI/Abdominal Exam GI & Abdominal Exam: Normal Bowel Sounds, Soft Additional comments: NT, ND - Extremities Exam Extremities exam: Positive for: normal inspection - Neurological Exam Neurological exam: Alert, CN II-XII Intact, Oriented x3 Results - Vital Signs Recent Vital Signs: Last Vital Signs Temp 98.2 F 04/20/17 08:00 Pulse 107 H 04/20/17 09:00 Resp 16 04/20/17 09:00 BP 127/77 04/20/17 09:00 Pulse Ox 97 04/20/17 09:00 - Labs Result Diagrams: 04/18/17 18:45 04/18/17 18:45 Labs: Laboratory Results - last 72 hr 04/18/17 04/18/17 04/18/17 18:45 18:45 18:45 WBC 6.7 RBC 5.02 Hgb 14.5 Hct 43.8 MCV 87.2 D MCH 28.9 MCHC 33.1 RDW 13.1 Plt Count 114 L MPV 13.0 H Neut % (Auto) 55.4 Lymph % (Auto) 31.0 [place] % (Auto) 12.0 H Eos % (Auto) 1.1 Baso % (Auto) 0.5 Neut # 3.7 Lymph # 2.1 [place] # 0.8 Eos # 0.1 Baso # 0.0 Sodium 141 Potassium 4.3 Chloride 104 Carbon Dioxide 23 Anion Gap 18 BUN 11 Creatinine 0.7 L Est GFR ( Amer) > 60 Est GFR (Non-Af Amer) > 60 Random Glucose 104 Calcium 9.4 Total Bilirubin 0.4 AST 25 ALT 48 Alkaline Phosphatase 102 Troponin I < 0.0120 Total Protein 7.5 Albumin 4.3 Globulin 3.1 Albumin/Globulin Ratio 1.4 Urine Opiates Screen Urine Methadone Screen Ur Barbiturates Screen Valproic Acid 77.2 Ur Phencyclidine Scrn Ur Amphetamines Screen U Benzodiazepines Scrn U Oth Cocaine Metabols U Cannabinoids Screen Alcohol, Quantitative < 10 04/18/17 04/19/17 04/19/17 19:30 00:55 09:10 WBC RBC Hgb Hct MCV MCH MCHC RDW Plt Count MPV Neut % (Auto) Lymph % (Auto) [place] % (Auto) Eos % (Auto) Baso % (Auto) Neut # Lymph # [place] # Eos # Baso # Sodium Potassium Chloride Carbon Dioxide Anion Gap BUN Creatinine Est GFR ( Amer) Est GFR (Non-Af Amer) Random Glucose Calcium Total Bilirubin AST ALT Alkaline Phosphatase Troponin I < 0.0120 < 0.0120 Total Protein Albumin Globulin Albumin/Globulin Ratio Urine Opiates Screen Negative Urine Methadone Screen Negative Ur Barbiturates Screen Negative Valproic Acid Ur Phencyclidine Scrn Negative Ur Amphetamines Screen Negative U Benzodiazepines Scrn Negative U Oth Cocaine Metabols Negative U Cannabinoids Screen Negative Alcohol, Quantitative Accession No. : [id number] Patient Name / ID : DANIKA RESENDEZ I / [id number] Exam Date : 04/19/2017 08:31:05 ( Approved ) Study Comment : Sex / Age : M / 31Y Creator : Feliz Rodriguez MD Dictator : Feliz Rodriguez MD Clinical Dietician : Oil Fire Specialist : Feliz Rodriguez MD Approver2 : Report Date : 04/19/2017 10:24:10 My Comment : PROCEDURE: MRI BRAIN WITHOUT CONTRAST HISTORY: MD ORDER COMPARISON: Brain MRI dated 03/12/2017 as well as head CTs dated 04/08/2017, 04/07/2017, and 03/11/2017. TECHNIQUE: Multiplanar, multisequence MR images of the brain were obtained without intravenous contrast enhancement as requested. FINDINGS: HEMORRHAGE: None DWI: No evidence of an acute or early subacute infarction. BRAIN PARENCHYMA: The prior posterior left frontal peripheral cystic lesion is diminished in size now measuring 1.5 x 0.9 x 1.3 cm compared to 2.1 x 1.7 x 2.2 cm on 03/12/2017 prior MRI. While there is no reactive change seen in the adjacent sulci of the left frontal and parietal lobes, the FLAIR signal within the cystic collection is different now appearing moderately increased compared to completely diminished in signal on prior MRI. This is not felt to represent hemorrhage as gradient echo imaging of fails demonstrate any signal dephasing within this location whatsoever. Signal intensity on T1 is also slightly greater than previously shown although it still remains dark in the fleming matter but clearly brighter than CSF. There is likely at least partial rupture of this cyst with potential disturbance of debris causing signal intensity changes with the exception of only the T2 weighted sequences. Consider infectious or inflammatory process with neoplasm felt to be significantly less likely. Follow -up contrast MRI is advised for additional characterization. No prominent positive mass effect is appreciated once again throughout the exam and there is no additional suspicious extra-axial fluid collection or signal change appreciated above or below the tentorium including throughout the brainstem. A prominent cisterna magna is again appreciated. No acute or subacute brain infarction in the interval. Craniocervical junction appears unremarkable. VENTRICLES: Unremarkable. No hydrocephalus. CRANIUM: Unremarkable. ORBITS: Grossly unremarkable. PARANASAL SINUSES/MASTOIDS: A likely extent cyst is appreciate the left maxillary sinus once again. VASCULAR SYSTEM: Skull base flow voids intact. OTHER FINDINGS: None. IMPRESSION: 1. A diminishing extra-axial lesion is seen at the posterior left frontal lobe with a sulcus NEC in size 2.2 cm greatest dimension down to 1.5 with signal characteristics which are changing in suggested this may not be simply a partially ruptured arachnoid cyst. Follow-up contrast MRI is advised for additional characterization. 2. No additional interval change. Minimal nonspecific punctate white matter changes are seen in the left and right frontal lobes once again. 3. Left maxillary sinus retention cyst again noted. Accession No. : [id number] Patient Name / ID : DANIKA RESENDEZ I / [id number] Exam Date : 04/18/2017 19:57:56 ( Approved ) Study Comment : Sex / Age : M / 31Y Creator : MYCHAL ARTHUR Dictator : Clinical Dietician : Oil Fire Specialist : MYCHAL ARTHUR Approver2 : Report Date : 04/18/2017 21:51:00 My Comment : [facility] Division of Radiology [address] [place] [address] Tel. no. Patient Name: MAL PEREZ I Pt. Address: [address] [place] [address] Rec #: [id number] [place] [address]: Juancarlos VASQUEZ, Eloy Caceres Pt CELL Order Location: Alethea : 1985 Male Age: 31 Order #: [id number] Reason for exam: headache CT Scan HEAD W/O CONTRAST Exam Date: 04/18/17 This imaging exam was performed at [facility] EXAM: CT Head Without Intravenous Contrast EXAM DATE/TIME: 04/18/2017 6:30 PM CLINICAL HISTORY: 31 years old, male; Pain and signs and symptoms; Weakness, extremity; Right; Headache; Other: Rt sided; Patient HX: HX of childhood epilepsy, and a. Cyst TECHNIQUE: Axial computed tomography images of the head/brain without intravenous contrast. All CT scans at this facility use one or more dose reduction techniques, viz.: automated exposure control; ma/kV adjustment per patient size (including targeted exams where dose is matched to indication; i.e. head); or iterative reconstruction technique. Coronal and sagittal reformatted images were created and reviewed. COMPARISON: CT - HEAD W/O CONTRAST 04/07/2017 7:43:06 PM FINDINGS: Brain: Ventricles are normal in size and configuration. There is no midline shift. There are no intra-axial or extra-axial hemorrhages. Posterior left frontal fluid collection with focal calcification is unchanged. The anterior left frontal calcification is unchanged. Left retrocerebellar fluid collection is unchanged. Fleming-white differentiation is visualized. Ventricles: See above. Bones: Cranial vault is intact. Soft tissues: unremarkable Sinuses: There is no acute sinusitis. There are osteomas in the frontal sinuses. Ears and mastoids: Middle ears and mastoids are unremarkable Orbits: Orbital contents are unremarkable. IMPRESSION: No acute intracranial abnormality Dictated By: Mychal Arthur MD, MD Dictated Date/Time: 04/18/172150 Signed By: Mychal Arthur MD Date Signed: 2150 Transcribed By: RICH Transcribe Date/Time : 04/18/172150 CALLI/EVELYN Assessment & Plan (1) Seizure Status: Acute Priority: High (2) Cyst of brain Status: Acute Priority: High - Assessment and Plan (Free Text) Assessment: A/P- 31 year old amle from [place] with cyst in brain , continued seizure like activity despite being on 2 anti-zeisure mesd. based on imaging report one cyst might have ruptured and other cyst decreasd in size. it's still unlcear if this is 100% neurocyticercosis as the lesions are not Typical of NC cyst, however since pt. once again symptomatic despite being on antiseizure meds and has some brain edema as per MRI report and since he is from [place] and cyticerci serolgy ( which is not very specific is positive ) , he may need to be started on albendazole along with the IV decadron to see if there would be any improvement , however,called radiologist and she reviewed the MRI and CT from this admission and the last admission and as per her the current admission MRI there is no cyst and the pevious cyst that was present in the last brain imaging in 03/2017 has collapsed as per the neuroradiologist. also as per Neuroradiologist since this admission MRI dd not show any cyst like lesion other than the collapsed cyst radiologist advised to get MRI of the brain with contrast now. also would advise to get fundoscopic exam r/o intraocular cyticerci prior to any potential antiparasitic agent initiation . case d/w Neurologist at length and with the patietn as well
--- NOTE | 2017-04-20 23:58 | CP.PCM.PN ---
Subjective - Date & Time of Evaluation Date of Evaluation: 04/20/17 Time of Evaluation: 08:00 - Subjective Subjective: c\o right frontal side headache , ,notes his symptoms always on one side consult notes reviewed he gets foacl twicthes some time, it bothers him Objective - Vital Signs/Intake and Output Vital Signs (last 24 hours): Temp Pulse Resp BP Pulse Ox 98.7 F 105 H 20 123/68 97 04/20/17 21:00 04/20/17 21:00 04/20/17 21:00 04/20/17 21:00 04/20/17 21:00 Intake and Output: 04/20/17 04/21/17 18:59 06:59 Intake Total 1250 Balance 1250 - Medications Medications: Current Medications Cyanocobalamin (Vitamin B12 1000 Mcg/Ml Inj) 1,000 mcg IM DAILY [facility] Last Admin: 04/20/17 08:37 Dose: 1,000 mcg Divalproex Sodium (Depakote Dr(*Bid*)) 750 mg PO BID [facility] Last Admin: 04/20/17 16:55 Dose: 750 mg Enoxaparin Sodium (Lovenox) 40 mg SC DAILY [facility] PRN Reason: Protocol Last Admin: 04/20/17 08:37 Dose: 40 mg Famotidine (Pepcid) 20 mg PO BID [facility] Last Admin: 04/20/17 16:57 Dose: 20 mg Dexamethasone 10 mg/ Sodium (Chloride) 51 mls @ 102 mls/hr IVPB Q12 [facility] Last Admin: 04/20/17 20:59 Dose: 102 mls/hr Levetiracetam (Keppra) 250 mg PO BID [facility] Last Admin: 04/20/17 16:56 Dose: 250 mg Polymyxin/Trimethoprim Sulfate (Polytrim Ophth Soln) 1 drop OD TID [facility] Last Admin: 04/20/17 16:57 Dose: 1 drop - Labs Labs: 04/18/17 18:45 04/18/17 18:45 - Additional Findings Additional findings: Constitutional Appears: No Acute Distress , NC\AT, obese - Head Exam Head Exam: ATRAUMATIC, NORMAL INSPECTION - Eye Exam Eye Exam: EOMI, Normal appearance, PERRL - ENT Exam ENT Exam: Normal Exam - Neck Exam Neck exam: Positive for: Normal Inspection. Negative for: Thyromegaly - Respiratory Exam Respiratory Exam: Clear to Auscultation Bilateral, NORMAL BREATHING PATTERN - Cardiovascular Exam Cardiovascular Exam: REGULAR RHYTHM, +S1, +S2, Systolic Murmur - GI/Abdominal Exam GI & Abdominal Exam: Normal Bowel Sounds, Soft. absent: Distended, Organomegaly , Tenderness Back exam: NORMAL INSPECTION, lower back paraspinal tenderness - Neurological Exam Neurological exam: Alert, CN II-XII Intact, Oriented x3 no focal deficits , reflexes-2 + b\L UE\LE, [place]-negative Skin Exam: Intact, pallor, no wounds noted Assessment and Plan (1) Paresthesia Status: Acute (2) Seizure Status: Chronic (3) Cyst of brain Status: Acute - Assessment and Plan (Free Text) Plan: continue meds neurochecks . ID recommend eye consult previous work up -MARYJANE positive for cysticerci
[2017-04-21] MEDS: Enoxaparin 40 mg Syringe SC SCH (08:23)
[2017-04-21] MEDS: Divalproex 250 mg DR(BID formulation) PO SCH ×2 (08:24→17:09)
[2017-04-21] MEDS: Polymyxin/Trimethoprim Ophth Soln OD SCH (08:24)
[2017-04-21] MEDS: Lacosamide 50 MG Tab PO SCH ×2 (08:28→17:15)
[2017-04-21] MEDS: Dexamethasone 10 MG in Sodium Chloride 0.9% 50 ML IVPB SCH ×2 (08:28→21:34)
[2017-04-21] MEDS ORDERED: Gadodiamide 287 MG/ML VIAL (15ML) IV ONE (10:43)
--- NOTE | 2017-04-21 10:52 | CP.PCM.PN ---
Subjective - Date & Time of Evaluation Date of Evaluation: 04/21/17 Time of Evaluation: 10:48 - Subjective Subjective: Mr Presley was seen and examined at the bedside. He denies any headache, loss of consciousness, dizziness, lightheadedness, numbness, or paresthesia. There is no untoward events overnight. Objective - Vital Signs/Intake and Output Vital Signs (last 24 hours): Temp Pulse Resp BP Pulse Ox 97.8 F 89 18 136/74 98 04/21/17 08:07 04/21/17 08:07 04/21/17 08:07 04/21/17 08:07 04/21/17 08:07 - Medications Medications: Current Medications Cyanocobalamin (Vitamin B12 1000 Mcg/Ml Inj) 1,000 mcg IM DAILY [facility] Last Admin: 04/21/17 08:25 Dose: 1,000 mcg Divalproex Sodium (Depakote Dr(*Bid*)) 750 mg PO BID [facility] Last Admin: 04/21/17 08:24 Dose: 750 mg Enoxaparin Sodium (Lovenox) 40 mg SC DAILY [facility] PRN Reason: Protocol Last Admin: 04/21/17 08:23 Dose: 40 mg Famotidine (Pepcid) 20 mg PO BID [facility] Last Admin: 04/21/17 08:23 Dose: 20 mg Dexamethasone 10 mg/ Sodium (Chloride) 51 mls @ 102 mls/hr IVPB Q12 [facility] Last Admin: 04/21/17 08:28 Dose: 102 mls/hr Levetiracetam (Keppra) 250 mg PO BID [facility] Last Admin: 04/21/17 08:23 Dose: 250 mg Phenylephrine HCl (Phenylephrine Opht 10% Soln) 1 drop OU ONCE ONE Stop: 04/21/17 11:01 Polymyxin/Trimethoprim Sulfate (Polytrim Ophth Soln) 1 drop OD TID [facility] Last Admin: 04/21/17 08:24 Dose: 1 drop Tropicamide (Mydriacyl 1% Opht Soln 15ml) 1 drop OU ONCE ONE Stop: 04/21/17 11:01 - Labs Labs: 04/18/17 18:45 04/18/17 18:45 - Constitutional Appears: Well - Head Exam Head Exam: ATRAUMATIC, NORMAL INSPECTION, NORMOCEPHALIC - Neurological Exam Neurological Exam: Alert, Awake, CN II-XII Intact, Oriented x3 Neuro motor strength exam: Left Upper Extremity: 5, Right Upper Extremity: 5, Left Lower Extremity: 5, Right Lower Extremity: 5 Additional comments: Neurological unchanged from previous examination. He is able to ambulate around his room. Assessment and Plan (1) Cyst of brain Assessment & Plan: Case discussed with Dr. Mcdermott, with pending results of for echinococcus vs neurocysticercosis, awaiting ID recommendations. Awaiting MRI of the head with contrast result. Will decrease keppra 250 mg PO HS and increase Vimpat 100 mg PO BID Status: Acute
[2017-04-21] MEDS ORDERED: Phenylephrine 10% Opht Soln OU ONE (11:00)
[2017-04-21] MEDS ORDERED: Tropicamide 1% Opht 150 DROP/15 ML OU ONE (11:00)
--- NOTE | 2017-04-21 11:44 | MRI ---
PROCEDURE: Postcontrast MRI of the brain HISTORY: brain cyst COMPARISON: Comparison is made to the recent noncontrast MRI of the brain dated 04/19/2017 TECHNIQUE: Axial and sagittal T1 pre and post contrast and coronal T1 postcontrast MRI images of the brain were obtained. FINDINGS: Again seen is hypo intense T1 signal cystic formation at the peripheral portion of the left posterior frontal region. There is no evidence of solid enhancing component in this lesion. Again seen is a linear enhancing around the cystic lesion may represent vessels or enhancing thin wall of this lesion. No evidence of solid enhancing mass lesion in the adjacent brain. The rest of the brain demonstrate normal enhancement. IMPRESSION: Re- demonstration of thin rim enhancing cystic lesion at the posterior aspect of the peripheral left frontal region. No evidence of solid enhancing component in this cystic lesion. The cystic lesion appears smaller compared to the previous study dated 03/12/2017. Otherwise no interval change. Continuous interval follow-up reassessment by enhanced contrast MRI is suggested.
--- NOTE | 2017-04-21 15:14 | CP.PCM.PN ---
Subjective - Date & Time of Evaluation Date of Evaluation: 04/21/17 Time of Evaluation: 13:00 - Subjective Subjective: ID note- Pt. seen and examined today. denies any MCCLURE but states he had another episode where he felt "vibration like sensation" in right arm and leg and right eye. He states all the symptoms are always on the right side. denies any diplopia. denies any fever or nausea. Objective - Vital Signs/Intake and Output Vital Signs (last 24 hours): Temp Pulse Resp BP Pulse Ox 97.8 F 80 18 118/66 97 04/21/17 12:10 04/21/17 12:10 04/21/17 12:10 04/21/17 12:10 04/21/17 12:10 - Medications Medications: Current Medications Cyanocobalamin (Vitamin B12 1000 Mcg/Ml Inj) 1,000 mcg IM DAILY [facility] Last Admin: 04/21/17 08:25 Dose: 1,000 mcg Divalproex Sodium (Depakote Dr(*Bid*)) 750 mg PO BID [facility] Last Admin: 04/21/17 08:24 Dose: 750 mg Enoxaparin Sodium (Lovenox) 40 mg SC DAILY [facility] PRN Reason: Protocol Last Admin: 04/21/17 08:23 Dose: 40 mg Famotidine (Pepcid) 20 mg PO BID [facility] Last Admin: 04/21/17 08:23 Dose: 20 mg Dexamethasone 10 mg/ Sodium (Chloride) 51 mls @ 102 mls/hr IVPB Q12 [facility] Last Admin: 04/21/17 08:28 Dose: 102 mls/hr Levetiracetam (Keppra) 250 mg PO HS [facility] - Labs Labs: - Additional Findings Additional findings: - Constitutional Appears: Non-toxic, No Acute Distress - Head Exam Head Exam: ATRAUMATIC - Eye Exam Eye Exam: EOMI, PERRL - ENT Exam ENT Exam: Normal Oropharynx - Neck Exam Neck exam: Positive for: Full Rom Additional comments: supple - Respiratory Exam Respiratory Exam: Clear to Auscultation Bilateral, NORMAL BREATHING PATTERN - Cardiovascular Exam Cardiovascular Exam: RRR, +S1, +S2 - GI/Abdominal Exam GI & Abdominal Exam: Normal Bowel Sounds, Soft Additional comments: NT, ND - Extremities Exam Extremities exam: Positive for: normal inspection - Neurological Exam Neurological exam: Alert, CN II-XII Intact, Oriented x 3 Laboratory Results - last 72 hr 04/18/17 04/18/17 04/18/17 18:45 18:45 18:45 WBC 6.7 RBC 5.02 Hgb 14.5 Hct 43.8 MCV 87.2 D MCH 28.9 MCHC 33.1 RDW 13.1 Plt Count 114 L MPV 13.0 H Neut % (Auto) 55.4 Lymph % (Auto) 31.0 [place] % (Auto) 12.0 H Eos % (Auto) 1.1 Baso % (Auto) 0.5 Neut # 3.7 Lymph # 2.1 [place] # 0.8 Eos # 0.1 Baso # 0.0 Sodium 141 Potassium 4.3 Chloride 104 Carbon Dioxide 23 Anion Gap 18 BUN 11 Creatinine 0.7 L Est GFR ( Amer) > 60 Est GFR (Non-Af Amer) > 60 Random Glucose 104 Calcium 9.4 Total Bilirubin 0.4 AST 25 ALT 48 Alkaline Phosphatase 102 Troponin I < 0.0120 Total Protein 7.5 Albumin 4.3 Globulin 3.1 Albumin/Globulin Ratio 1.4 Urine Opiates Screen Urine Methadone Screen Ur Barbiturates Screen Valproic Acid 77.2 Ur Phencyclidine Scrn Ur Amphetamines Screen U Benzodiazepines Scrn U Oth Cocaine Metabols U Cannabinoids Screen Alcohol, Quantitative < 10 04/18/17 04/19/17 04/19/17 19:30 00:55 09:10 WBC RBC Hgb Hct MCV MCH MCHC RDW Plt Count MPV Neut % (Auto) Lymph % (Auto) [place] % (Auto) Eos % (Auto) Baso % (Auto) Neut # Lymph # [place] # Eos # Baso # Sodium Potassium Chloride Carbon Dioxide Anion Gap BUN Creatinine Est GFR ( Amer) Est GFR (Non-Af Amer) Random Glucose Calcium Total Bilirubin AST ALT Alkaline Phosphatase Troponin I < 0.0120 < 0.0120 Total Protein Albumin Globulin Albumin/Globulin Ratio Urine Opiates Screen Negative Urine Methadone Screen Negative Ur Barbiturates Screen Negative Valproic Acid Ur Phencyclidine Scrn Negative Ur Amphetamines Screen Negative U Benzodiazepines Scrn Negative U Oth Cocaine Metabols Negative U Cannabinoids Screen Negative Alcohol, Quantitative Microbiology 04/19/17 Unknown Naris MRSA Culture (Admit) - Final MRSA NOT DETECTED Accession No. : [id number] Patient Name / ID : DANIKA RESENDEZ I / [id number] Exam Date : 04/21/2017 10:52:45 ( Approved ) Study Comment : Sex / Age : M / 31Y Creator : Dayday Faulkner Dictator : Dayday Faulkner Facility Worker : Cloth Tearer : Dayday Faulkner Approver2 : Report Date : 04/21/2017 11:39:21 My Comment : PROCEDURE: Postcontrast MRI of the brain HISTORY: brain cyst COMPARISON: Comparison is made to the recent noncontrast MRI of the brain dated 04/19/2017 TECHNIQUE: Axial and sagittal T1 pre and post contrast and coronal T1 postcontrast MRI images of the brain were obtained. FINDINGS: Again seen is hypo intense T1 signal cystic formation at the peripheral portion of the left posterior frontal region. There is no evidence of solid enhancing component in this lesion. Again seen is a linear enhancing around the cystic lesion may represent vessels or enhancing thin wall of this lesion. No evidence of solid enhancing mass lesion in the adjacent brain. The rest of the brain demonstrate normal enhancement. IMPRESSION: Re- demonstration of thin rim enhancing cystic lesion at the posterior aspect of the peripheral left frontal region. No evidence of solid enhancing component in this cystic lesion. The cystic lesion appears smaller compared to the previous study dated 03/12/2017. Otherwise no interval change. Continuous interval follow-up reassessment by enhanced contrast MRI is suggested. Assessment and Plan (1) Seizure Status: Acute (2) Cyst of brain Status: Acute - Assessment and Plan (Free Text) Assessment: A/P- 31 year old male from [place] with ? cyst in brain , continued seizure like activity despite being on 2 anti-zeisure meds. based on imaging report one cyst might have ruptured and other cyst decreasd in size. it's still unclear if this is 100% neurocyticercosis as the lesion not Typical of [place] cyst, spoke with radiologist yesterday and she reviewed the MRI and CT from this admission and the last admission and as per her the current admission MRI there is no cyst and the previous cyst that was present in the last brain imaging in 03/2017 has collapsed as per the neuroradiologist. also as per Neuroradiologist since this admission MRI not show any cyst like lesion other than the collapsed cyst radiologist advised to get MRI of the brain with contrast now. MRI of the brain done with contrast later yesterday is different reading compared to the MRI reading from the day before. will once again speak with radiologist to compare tall these studies and give us a more conclusive report. also would advise to get fundoscopic exam r/o intraocular cyticerci prior to any potential antiparasitic agent initiation . case was also d/w the chief of ID dept here at [facility] and he agrees with above. case d/w Neurologist at length and with the patient as well at length.
[2017-04-21] MEDS: Dexamethasone/Tobramycin Ophth Susp OS SCH ×2 (17:10→21:35)
--- NOTE | 2017-04-22 00:19 | CP.PCM.PN ---
Subjective - Date & Time of Evaluation Date of Evaluation: 04/21/17 Time of Evaluation: 09:00 - Subjective Subjective: hf of discomfort in left eye recently, seen resolved for now ID recommended eye consult sitting in chair Objective - Vital Signs/Intake and Output Vital Signs (last 24 hours): Temp Pulse Resp BP Pulse Ox 98.2 F 76 18 127/63 99 04/22/17 00:01 04/22/17 00:01 04/22/17 00:01 04/22/17 00:01 04/22/17 00:01 - Medications Medications: Current Medications Cyanocobalamin (Vitamin B12 1000 Mcg/Ml Inj) 1,000 mcg IM DAILY [facility] Last Admin: 04/21/17 08:25 Dose: 1,000 mcg Divalproex Sodium (Depakote Dr(*Bid*)) 750 mg PO BID [facility] Last Admin: 04/21/17 17:09 Dose: 750 mg Enoxaparin Sodium (Lovenox) 40 mg SC DAILY [facility] PRN Reason: Protocol Last Admin: 04/21/17 08:23 Dose: 40 mg Famotidine (Pepcid) 20 mg PO BID [facility] Last Admin: 04/21/17 17:09 Dose: 20 mg Dexamethasone 10 mg/ Sodium (Chloride) 51 mls @ 102 mls/hr IVPB Q12 [facility] Last Admin: 04/21/17 21:34 Dose: 102 mls/hr Levetiracetam (Keppra) 250 mg PO HS [facility] Last Admin: 04/21/17 21:34 Dose: 250 mg Tobramycin/Dexamethasone (Tobradex Opht Susp) 1 drop OS QID [facility] Last Admin: 04/21/17 21:35 Dose: 1 drop - Labs Labs: 04/18/17 18:45 04/18/17 18:45 - Additional Findings Additional findings: Constitutional Appears: No Acute Distress , NC\AT, obese - Head Exam Head Exam: ATRAUMATIC, NORMAL INSPECTION - Eye Exam Eye Exam: EOMI, Normal appearance, PERRL - ENT Exam ENT Exam: Normal Exam - Neck Exam Neck exam: Positive for: Normal Inspection. Negative for: Thyromegaly - Respiratory Exam Respiratory Exam: Clear to Auscultation Bilateral, NORMAL BREATHING PATTERN - Cardiovascular Exam Cardiovascular Exam: REGULAR RHYTHM, +S1, +S2, Systolic Murmur - GI/Abdominal Exam GI & Abdominal Exam: Normal Bowel Sounds, Soft. absent: Distended, Organomegaly , Tenderness Back exam: NORMAL INSPECTION, lower back paraspinal tenderness - Neurological Exam Neurological exam: Alert, CN II-XII Intact, Oriented x3 no focal deficits , reflexes-2 + b\L UE\LE, [place]-negative Skin Exam: Intact, pallor, no wounds noted Assessment and Plan (1) Paresthesia Status: Acute (2) Seizure Status: Chronic (3) Cyst of brain Status: Acute - Assessment and Plan (Free Text) Plan: waiting for eye consult continue meds no seizure for now about starting rx for cysts -awitinfg for descision\ neuro for sx
[2017-04-22] MEDS: Dexamethasone 10 MG in Sodium Chloride 0.9% 50 ML IVPB SCH ×2 (08:43→21:17)
[2017-04-22] MEDS: Enoxaparin 40 mg Syringe SC SCH (08:44)
[2017-04-22] MEDS: Divalproex 250 mg DR(BID formulation) PO SCH ×2 (08:44→17:17)
[2017-04-22] MEDS: Dexamethasone/Tobramycin Ophth Susp OS SCH ×4 (08:45→21:17)
[2017-04-22] MEDS: Lacosamide 50 MG Tab PO SCH ×2 (08:46→17:21)
--- NOTE | 2017-04-22 09:08 | CON ---
DATE: Mr. Presley is a 31-year-old male, who I was asked to see on consultation. He was complaining of a foreign body sensation in the left eye and he needed to have retinal exam on physical examination. He had small conjunctival cyst in the left eye. Coronary exam is normal. Lens exam is normal. Fundus exam is normal. 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 I put him on TobraDex 1 drop to the left eye 4 times a day and I told him to come to see me on discharge. Jamaal Wise MD ADDENDUM DATE: I neglected to note in my dilated fundus exam. On fundus examination that there was no evidence of intraocular parasites or cysticercosis. The fundus exam was entirely within normal limits. Jamaal Wise MD MTDD
--- NOTE | 2017-04-22 10:12 | CP.PCM.PN ---
Subjective - Date & Time of Evaluation Date of Evaluation: 04/22/17 Time of Evaluation: 10:10 - Subjective Subjective: Mr. Presley was seen and examined at bedside. He denies any headache, lightheadedness, dizziness, weakness, nausea, or vomiting, but claimed to have episode of flashing of light Tuesday night. The incident happened rapidly and disappeared also suddenly. He denied any other symptoms. There is no untoward events last night. Objective - Vital Signs/Intake and Output Vital Signs (last 24 hours): Temp Pulse Resp BP Pulse Ox 97.6 F 75 20 136/90 98 04/22/17 08:16 04/22/17 08:16 04/22/17 08:16 04/22/17 08:16 04/22/17 08:16 - Medications Medications: Current Medications Cyanocobalamin (Vitamin B12 1000 Mcg/Ml Inj) 1,000 mcg IM DAILY [facility] Last Admin: 04/22/17 08:46 Dose: 1,000 mcg Divalproex Sodium (Vivian Millard(*Bid*)) 750 mg PO BID [facility] Last Admin: 04/22/17 08:44 Dose: 750 mg Famotidine (Pepcid) 20 mg PO BID [facility] Last Admin: 04/22/17 08:44 Dose: 20 mg Dexamethasone 10 mg/ Sodium (Chloride) 51 mls @ 102 mls/hr IVPB Q12 [facility] Last Admin: 04/22/17 08:43 Dose: 102 mls/hr Levetiracetam (Keppra) 250 mg PO HS [facility] Last Admin: 04/21/17 21:34 Dose: 250 mg Tobramycin/Dexamethasone (Tobradex Opht Susp) 1 drop OS QID [facility] Last Admin: 04/22/17 08:45 Dose: 1 drop - Labs Labs: 04/18/17 18:45 04/18/17 18:45 - Constitutional Appears: Well - Head Exam Head Exam: ATRAUMATIC, NORMAL INSPECTION, NORMOCEPHALIC - Neurological Exam Neurological Exam: Alert, Awake, CN II-XII Intact, Oriented x3 Neuro motor strength exam: Left Upper Extremity: 5, Right Upper Extremity: 5, Left Lower Extremity: 5, Right Lower Extremity: 5 Additional comments: Neurological unchanged from previous examination. Assessment and Plan (1) Cyst of brain Assessment & Plan: Case discussed with Dr. Mcdermott, recommended depakote level and possible discontinue of keppra. Awaiting recommendations from ID. Status: Acute
--- NOTE | 2017-04-22 11:32 | CP.PCM.PN ---
Subjective - Date & Time of Evaluation Date of Evaluation: 04/22/17 Time of Evaluation: 11:31 - Subjective Subjective: ID Note- Pt. seen and examined today. He denies any MCCLURE today and denies any tingling or vibration like sensation today in the right side. He was also seen by OPthalmologist and as per there are no cyticerci in the intraocular region and no parasites. Objective - Vital Signs/Intake and Output Vital Signs (last 24 hours): Temp Pulse Resp BP Pulse Ox 97.6 F 75 20 136/90 98 04/22/17 08:16 04/22/17 08:16 04/22/17 08:16 04/22/17 08:16 04/22/17 08:16 - Medications Medications: Current Medications Cyanocobalamin (Vitamin B12 1000 Mcg/Ml Inj) 1,000 mcg IM DAILY [facility] Last Admin: 04/22/17 08:46 Dose: 1,000 mcg Divalproex Sodium (Depakote Dr(*Bid*)) 750 mg PO BID [facility] Last Admin: 04/22/17 08:44 Dose: 750 mg Famotidine (Pepcid) 20 mg PO BID [facility] Last Admin: 04/22/17 08:44 Dose: 20 mg Dexamethasone 10 mg/ Sodium (Chloride) 51 mls @ 102 mls/hr IVPB Q12 [facility] Last Admin: 04/22/17 08:43 Dose: 102 mls/hr Levetiracetam (Keppra) 250 mg PO HS [facility] Last Admin: 04/21/17 21:34 Dose: 250 mg Tobramycin/Dexamethasone (Tobradex Opht Susp) 1 drop OS QID [facility] Last Admin: 04/22/17 08:45 Dose: 1 drop - Labs Labs: - Constitutional Appears: No Acute Distress - Head Exam Head Exam: ATRAUMATIC - Eye Exam Eye Exam: EOMI, PERRL - ENT Exam ENT Exam: Normal Oropharynx - Neck Exam Neck Exam: Full ROM Additional comments: supple - Respiratory Exam Respiratory Exam: Clear to Ausculation Bilateral, NORMAL BREATHING PATTERN - Cardiovascular Exam Cardiovascular Exam: RRR, +S1, +S2 - GI/Abdominal Exam GI & Abdominal Exam: Soft, Normal Bowel Sounds Additional comments: NT, ND - Extremities Exam Extremities Exam: Full ROM, Normal Inspection - Neurological Exam Neurological Exam: Alert, Awake, Oriented x3 - Additional Findings Additional findings: Laboratory Results - last 72 hr 04/22/17 10:30 Valproic Acid 45.7 L Microbiology 04/19/17 Unknown Naris MRSA Culture (Admit) - Final MRSA NOT DETECTED Accession No. : [id number] Patient Name / ID : DANIKA RESENDEZ I / [id number] Exam Date : 04/21/2017 10:52:45 ( Approved ) Study Comment : Sex / Age : M / 31Y Creator : Dayday Faulkner Dictator : Dayday Faulkner Academic Support Assistant : Hand Tacker : Dayday Faulkner Approver2 : Report Date : 04/21/2017 11:39:21 My Comment : PROCEDURE: Postcontrast MRI of the brain HISTORY: brain cyst COMPARISON: Comparison is made to the recent noncontrast MRI of the brain dated 04/19/2017 TECHNIQUE: Axial and sagittal T1 pre and post contrast and coronal T1 postcontrast MRI images of the brain were obtained. FINDINGS: Again seen is hypo intense T1 signal cystic formation at the peripheral portion of the left posterior frontal region. There is no evidence of solid enhancing component in this lesion. Again seen is a linear enhancing around the cystic lesion may represent vessels or enhancing thin wall of this lesion. No evidence of solid enhancing mass lesion in the adjacent brain. The rest of the brain demonstrate normal enhancement. IMPRESSION: Re- demonstration of thin rim enhancing cystic lesion at the posterior aspect of the peripheral left frontal region. No evidence of solid enhancing component in this cystic lesion. The cystic lesion appears smaller compared to the previous study dated 03/12/2017. Otherwise no interval change. Continuous interval follow-up reassessment by enhanced contrast MRI is suggested. Assessment and Plan (1) Seizure Status: Acute (2) Cyst of brain Status: Acute - Assessment and Plan (Free Text) Assessment: A/P- 31 year old male from [place] with ? cyst in brain , continued seizure like activity despite being on 2 anti-zeisure meds. pt. has remained seizure free today on the new antiseizure medication Vinpat as per neurologist afebrile seen by optho and no intraocular cysticerci. MRI with contrast report noted and as per this report no change in the left posterior frontal rim enhancing cyst compred to study in 03/2017 , only slightly decreased in size. hence the noncontrast MRI reading seem s to have been not compatible with the other 2 readings and after lengthy conversation with neurologist he believes the cyst is till there and most likely causing the symptoms, however , as per pt. would be best suited at a tertiary care center where they can do continuous EEG monitoring and since he has been w/o any seizures since yesterday on the Vimpat he advises to continue the patient on the vinpat and the steroids and for pt. to be transfererd to a tertiary care center with neuro icu capability , however if transfer to tertiary care center not possible may nned to initiate antiparasitic medication along with the dexamethasone since there is still cyst in brain and had positive cysticerci [place] and [place] . this was also d/w patient. risks vs benefits of initiating antiparasitics were d/w patient and his and mother at length and pt. states he is agreeable to antiparasitic initiation .
--- NOTE | 2017-04-22 22:35 | CP.PCM.PN ---
Subjective - Date & Time of Evaluation Date of Evaluation: 04/22/17 Time of Evaluation: 09:00 - Subjective Subjective: seen by ophthalmology. no new recomendations ID wanted second opinion labs noted no new complaints. Objective - Vital Signs/Intake and Output Vital Signs (last 24 hours): Temp Pulse Resp BP Pulse Ox 98.3 F 77 20 107/63 99 04/22/17 18:49 04/22/17 18:49 04/22/17 18:49 04/22/17 18:49 04/22/17 18:49 Intake and Output: 04/22/17 04/23/17 18:59 06:59 Intake Total 1050 Balance 1050 - Medications Medications: Current Medications Cyanocobalamin (Vitamin B12 1000 Mcg/Ml Inj) 1,000 mcg IM DAILY [facility] Last Admin: 04/22/17 08:46 Dose: 1,000 mcg Divalproex Sodium (Depakote Dr(*Bid*)) 750 mg PO BID [facility] Last Admin: 04/22/17 17:17 Dose: 750 mg Famotidine (Pepcid) 20 mg PO BID [facility] Last Admin: 04/22/17 17:17 Dose: 20 mg Dexamethasone 10 mg/ Sodium (Chloride) 51 mls @ 102 mls/hr IVPB Q12 [facility] Last Admin: 04/22/17 21:17 Dose: 102 mls/hr Levetiracetam (Keppra) 250 mg PO HS [facility] Last Admin: 04/22/17 21:17 Dose: 250 mg Tobramycin/Dexamethasone (Tobradex Opht Susp) 1 drop OS QID [facility] Last Admin: 04/22/17 21:17 Dose: 1 drop - Labs Labs: 04/18/17 18:45 04/18/17 18:45 - Additional Findings Additional findings: Constitutional Appears: No Acute Distress , NC\AT, obese - Head Exam Head Exam: ATRAUMATIC, NORMAL INSPECTION - Eye Exam Eye Exam: EOMI, Normal appearance, PERRL - ENT Exam ENT Exam: Normal Exam - Neck Exam Neck exam: Positive for: Normal Inspection. Negative for: Thyromegaly - Respiratory Exam Respiratory Exam: Clear to Auscultation Bilateral, NORMAL BREATHING PATTERN - Cardiovascular Exam Cardiovascular Exam: REGULAR RHYTHM, +S1, +S2, Systolic Murmur - GI/Abdominal Exam GI & Abdominal Exam: Normal Bowel Sounds, Soft. absent: Distended, Organomegaly , Tenderness Back exam: NORMAL INSPECTION, lower back paraspinal tenderness - Neurological Exam Neurological exam: Alert, CN II-XII Intact, Oriented x3 no focal deficits , reflexes-2 + b\L UE\LE, [place]-negative Skin Exam: Intact, pallor, no wounds noted Assessment and Plan (1) Paresthesia Status: Acute (2) Seizure Status: Chronic (3) Cyst of brain Status: Acute - Assessment and Plan (Free Text) Plan: once ID clears for rx reassurance wants to be cleared
[2017-04-23] MEDS: Dexamethasone 10 MG in Sodium Chloride 0.9% 50 ML IVPB SCH ×2 (09:10→21:32)
[2017-04-23] MEDS: Divalproex 250 mg DR(BID formulation) PO SCH ×2 (09:10→17:02)
[2017-04-23] MEDS: Dexamethasone/Tobramycin Ophth Susp OS SCH ×4 (09:11→21:32)
[2017-04-23] MEDS: Lacosamide 50 MG Tab PO SCH ×2 (09:24→17:02)
--- NOTE | 2017-04-23 21:05 | CP.PCM.PN ---
Subjective - Date & Time of Evaluation Date of Evaluation: 04/23/17 Time of Evaluation: 07:00 - Subjective Subjective: waiting for ID opinion . no new complaints. tolerating meds. Objective - Vital Signs/Intake and Output Vital Signs (last 24 hours): Temp Pulse Resp BP Pulse Ox 98.3 F 76 20 150/73 97 04/23/17 19:14 04/23/17 19:14 04/23/17 19:14 04/23/17 19:14 04/23/17 19:14 Intake and Output: 04/23/17 04/24/17 18:59 06:59 Intake Total 1550 Balance 1550 - Medications Medications: Current Medications Cyanocobalamin (Vitamin B12 1000 Mcg/Ml Inj) 1,000 mcg IM DAILY [facility] Last Admin: 04/23/17 09:11 Dose: 1,000 mcg Divalproex Sodium (Depakote Dr(*Bid*)) 750 mg PO BID [facility] Last Admin: 04/23/17 17:02 Dose: 750 mg Famotidine (Pepcid) 20 mg PO BID [facility] Last Admin: 04/23/17 17:02 Dose: 20 mg Dexamethasone 10 mg/ Sodium (Chloride) 51 mls @ 102 mls/hr IVPB Q12 [facility] Last Admin: 04/23/17 09:10 Dose: 102 mls/hr Levetiracetam (Keppra) 250 mg PO HS [facility] Last Admin: 04/22/17 21:17 Dose: 250 mg Tobramycin/Dexamethasone (Tobradex Opht Susp) 1 drop OS QID [facility] Last Admin: 04/23/17 17:02 Dose: 1 drop - Labs Labs: 04/18/17 18:45 04/18/17 18:45 - Additional Findings Additional findings: Constitutional Appears: No Acute Distress , NC\AT, obese - Head Exam Head Exam: ATRAUMATIC, NORMAL INSPECTION - Eye Exam Eye Exam: EOMI, Normal appearance, PERRL - ENT Exam ENT Exam: Normal Exam - Neck Exam Neck exam: Positive for: Normal Inspection. Negative for: Thyromegaly - Respiratory Exam Respiratory Exam: Clear to Auscultation Bilateral, NORMAL BREATHING PATTERN - Cardiovascular Exam Cardiovascular Exam: REGULAR RHYTHM, +S1, +S2, Systolic Murmur - GI/Abdominal Exam GI & Abdominal Exam: Normal Bowel Sounds, Soft. absent: Distended, Organomegaly , Tenderness Back exam: NORMAL INSPECTION, lower back paraspinal tenderness - Neurological Exam Neurological exam: Alert, CN II-XII Intact, Oriented x3 no focal deficits , reflexes-2 + b\L UE\LE, [place]-negative Skin Exam: Intact, pallor, no wounds noted Assessment and Plan (1) Paresthesia Status: Acute (2) Seizure Status: Chronic (3) Cyst of brain Status: Acute - Assessment and Plan (Free Text) Plan: continue meds d\w him and family in detail.
[2017-04-24] MEDS: Divalproex 250 mg DR(BID formulation) PO SCH ×2 (08:49→17:08)
[2017-04-24] MEDS: Dexamethasone 10 MG in Sodium Chloride 0.9% 50 ML IVPB SCH ×2 (08:49→20:57)
[2017-04-24] MEDS: Dexamethasone/Tobramycin Ophth Susp OS SCH ×4 (08:50→21:05)
[2017-04-24] MEDS: Lacosamide 50 MG Tab PO SCH ×2 (08:55→17:08)
[2017-04-25] MEDS ORDERED: Dexamethasone 10 MG in Sodium Chloride 0.9% 50 ML IVPB SCH (09:15)
[2017-04-25] MEDS: Dexamethasone/Tobramycin Ophth Susp OS SCH ×4 (09:52→21:52)
[2017-04-25] MEDS: Divalproex 250 mg DR(BID formulation) PO SCH ×2 (09:53→17:30)
[2017-04-25] MEDS: Lacosamide 50 MG Tab PO SCH ×2 (09:56→17:30)
--- NOTE | 2017-04-25 10:22 | CP.PCM.PN ---
Subjective - Date & Time of Evaluation Date of Evaluation: 04/25/17 Time of Evaluation: 10:20 - Subjective Subjective: Mr. Presley was seen and examined at the bedside. He denies any dizziness, lightheadedness, weakness, numbness, nausea, vomiting, gait instability, or headache. He stated that he had an episode of headache characterized as pressure , radiating from frontal to occipital area including the right eye. He further stated that it also resulted to a blurry vision, but denies any numbness, dizziness, weakness, paresthesia during the incident. There was no untoward events overnight. Objective - Vital Signs/Intake and Output Vital Signs (last 24 hours): Temp Pulse Resp BP Pulse Ox 97.9 F 76 18 110/67 98 04/25/17 08:00 04/25/17 08:00 04/25/17 08:00 04/25/17 08:00 04/25/17 08:00 - Medications Medications: Current Medications Cyanocobalamin (Vitamin B12 1000 Mcg/Ml Inj) 1,000 mcg IM DAILY [facility] Last Admin: 04/25/17 09:53 Dose: 1,000 mcg Divalproex Sodium (Depakote Dr(*Bid*)) 750 mg PO BID [facility] Last Admin: 04/25/17 09:53 Dose: 750 mg Famotidine (Pepcid) 20 mg PO BID [facility] Last Admin: 04/25/17 09:52 Dose: 20 mg Dexamethasone 10 mg/ Sodium (Chloride) 51 mls @ 102 mls/hr IVPB Q12 [facility] Last Admin: 04/25/17 09:54 Dose: 102 mls/hr Levetiracetam (Keppra) 250 mg PO HS [facility] Last Admin: 04/24/17 21:04 Dose: 250 mg Tobramycin/Dexamethasone (Tobradex Opht Susp) 1 drop OS QID [facility] Last Admin: 04/25/17 09:52 Dose: 1 drop - Labs Labs: 04/18/17 18:45 04/18/17 18:45 - Constitutional Appears: Well - Head Exam Head Exam: ATRAUMATIC, NORMAL INSPECTION, NORMOCEPHALIC - Neurological Exam Neurological Exam: Alert, Awake, CN II-XII Intact, Normal Gait, Oriented x3 Neuro motor strength exam: Left Upper Extremity: 5, Right Upper Extremity: 5, Left Lower Extremity: 5, Right Lower Extremity: 5 Additional comments: Neurological unchanged from previous examination. Assessment and Plan (1) Cyst of brain Assessment & Plan: Case discussed with Dr. Mcdermott, will discontinue keppra, awaiting results of valproic acid and any ID recommendations. Dr. Mcdermott is looking for a tertiary center for possible transfer for a tertiary level of care. Status: Acute
--- NOTE | 2017-04-25 15:39 | CP.PCM.PN ---
Subjective - Date & Time of Evaluation Date of Evaluation: 04/25/17 Time of Evaluation: 13:00 - Subjective Subjective: ID Note- pt. seen and examined today. Pt. is taking walking laps around the steward for exercise. he denies any Headaches and anymore episodes of right sided hand and feet tingling. He states his right eye at times feels strange but resolves quickly. awaiting possible transfer to tertiary care center as per neurologist. Objective - Vital Signs/Intake and Output Vital Signs (last 24 hours): Temp Pulse Resp BP Pulse Ox 97.8 F 73 18 126/77 98 04/25/17 12:00 04/25/17 12:00 04/25/17 12:00 04/25/17 12:00 04/25/17 12:00 - Medications Medications: Current Medications Cyanocobalamin (Vitamin B12 1000 Mcg/Ml Inj) 1,000 mcg IM DAILY [facility] Last Admin: 04/25/17 09:53 Dose: 1,000 mcg Dexamethasone (Decadron) 4 mg PO Q12 [facility] Divalproex Sodium (Depakote Dr(*Bid*)) 750 mg PO BID [facility] Last Admin: 04/25/17 09:53 Dose: 750 mg Famotidine (Pepcid) 20 mg PO BID [facility] Last Admin: 04/25/17 09:52 Dose: 20 mg Tobramycin/Dexamethasone (Tobradex Opht Susp) 1 drop OS QID [facility] Last Admin: 04/25/17 13:09 Dose: 1 drop - Labs Labs: 04/18/17 18:45 04/18/17 18:45 - Constitutional Appears: No Acute Distress - Head Exam Head Exam: ATRAUMATIC - Eye Exam Eye Exam: EOMI, PERRL - ENT Exam ENT Exam: Normal Oropharynx - Neck Exam Neck Exam: Full ROM - Respiratory Exam Respiratory Exam: Clear to Ausculation Bilateral, NORMAL BREATHING PATTERN - Cardiovascular Exam Cardiovascular Exam: RRR, +S1, +S2 - GI/Abdominal Exam GI & Abdominal Exam: Soft, Normal Bowel Sounds Additional comments: NT, ND - Extremities Exam Extremities Exam: Normal Inspection - Neurological Exam Neurological Exam: Alert, Awake, Oriented x3 Assessment and Plan (1) Seizure Status: Acute (2) Cyst of brain Status: Acute - Assessment and Plan (Free Text) Assessment: A/P- 31 year old male from [place] with ? cyst in brain , continued seizure like activity despite being on 2 anti-zeisure meds. has been seizure free for past 3 days afebrile seen by optho and no intraocular cysticerci as per opthalmologist. MRI with contrast report noted and as per this report no change in the left posterior frontal rim enhancing cyst compred to study in 03/2017 , only slightly decreased in size. await possible transfer to tertiary care center as per . risks vs benefits of initiating antiparasitics were d/w patient and his and mother at length . I also agree with neurologist that of pt. is symptom free at this time and cyst has not changed based on the new MRI report , may be best to hold off on antiparasitic medication at this time and pt. to be seen at a tertiary care center with neuro- ICU capability since would need very close follow up. if patient experiences another seizure like activity and/or hasn't been transferred to tertiary care center yet then may need to start antiparasitic along with continued dexamathasone and antiseizure meds. await to hear from neurologist dr. Mcdermott.
--- NOTE | 2017-04-25 23:38 | CP.PCM.PN ---
Subjective - Date & Time of Evaluation Date of Evaluation: 04/25/17 Time of Evaluation: 18:00 - Subjective Subjective: family at bed side asking he wants to definitive rx. asking different rx and places etc. seen neuro note Objective - Vital Signs/Intake and Output Vital Signs (last 24 hours): Temp Pulse Resp BP Pulse Ox 97.4 F L 85 20 130/82 99 04/25/17 21:51 04/25/17 21:51 04/25/17 21:51 04/25/17 21:51 04/25/17 21:51 Intake and Output: 04/25/17 04/26/17 18:59 06:59 Intake Total 650 Balance 650 - Medications Medications: Current Medications Cyanocobalamin (Vitamin B12 1000 Mcg/Ml Inj) 1,000 mcg IM DAILY [facility] Last Admin: 04/25/17 09:53 Dose: 1,000 mcg Dexamethasone (Decadron) 4 mg PO Q12 [facility] Last Admin: 04/25/17 21:51 Dose: 4 mg Divalproex Sodium (Depakote Dr(*Bid*)) 750 mg PO BID [facility] Last Admin: 04/25/17 17:30 Dose: 750 mg Famotidine (Pepcid) 20 mg PO BID [facility] Last Admin: 04/25/17 17:30 Dose: 20 mg Tobramycin/Dexamethasone (Tobradex Opht Susp) 1 drop OS QID [facility] Last Admin: 04/25/17 21:52 Dose: 1 drop - Labs Labs: 04/18/17 18:45 04/18/17 18:45 - Additional Findings Additional findings: Constitutional Appears: No Acute Distress , [place]\AT, obese - Head Exam Head Exam: ATRAUMATIC, NORMAL INSPECTION - Eye Exam Eye Exam: EOMI, Normal appearance, PERRL - ENT Exam ENT Exam: Normal Exam - Neck Exam Neck exam: Positive for: Normal Inspection. Negative for: Thyromegaly - Respiratory Exam Respiratory Exam: Clear to Auscultation Bilateral, NORMAL BREATHING PATTERN - Cardiovascular Exam Cardiovascular Exam: REGULAR RHYTHM, +S1, +S2, Systolic Murmur - GI/Abdominal Exam GI & Abdominal Exam: Normal Bowel Sounds, Soft. absent: Distended, Organomegaly , Tenderness Back exam: NORMAL INSPECTION, lower back paraspinal tenderness - Neurological Exam Neurological exam: Alert, CN II-XII Intact, Oriented x3 no focal deficits , reflexes-2 + b\L UE\LE, [place]-negative Skin Exam: Intact, pallor, no wounds noted Assessment and Plan (1) Paresthesia Status: Acute (2) Seizure Status: Chronic (3) Cyst of brain Status: Acute - Assessment and Plan (Free Text) Plan: continue meds ID -wants to star rx with albendazole for 1 week under monitoring symtpms d\w patient
[2017-04-26] MEDS: Dexamethasone/Tobramycin Ophth Susp OS SCH ×4 (08:46→21:48)
[2017-04-26] MEDS: Lacosamide 50 MG Tab PO SCH ×2 (08:46→16:55)
[2017-04-26] MEDS: Divalproex 250 mg DR(BID formulation) PO SCH ×2 (08:47→16:53)
--- NOTE | 2017-04-26 09:44 | CP.PCM.PN ---
Subjective - Date & Time of Evaluation Date of Evaluation: 04/26/17 Time of Evaluation: 09:42 - Subjective Subjective: Mr. Presley was seen and examined at the bedside. He denies any headache, numbness, weakness, lightheadedness, weakness, nausea, or vomiting. He is not on any acute distress. There was no events overnight. Objective - Vital Signs/Intake and Output Vital Signs (last 24 hours): Temp Pulse Resp BP Pulse Ox 98.3 F 74 18 125/76 98 04/26/17 08:00 04/26/17 08:00 04/26/17 08:00 04/26/17 08:00 04/26/17 08:00 - Medications Medications: Current Medications Cyanocobalamin (Vitamin B12 1000 Mcg/Ml Inj) 1,000 mcg IM DAILY [facility] Last Admin: 04/26/17 08:47 Dose: 1,000 mcg Dexamethasone (Decadron) 4 mg PO Q12 [facility] Last Admin: 04/26/17 08:46 Dose: 4 mg Divalproex Sodium (Depakote Dr(*Bid*)) 750 mg PO BID [facility] Last Admin: 04/26/17 08:47 Dose: 750 mg Famotidine (Pepcid) 20 mg PO BID [facility] Last Admin: 04/26/17 08:46 Dose: 20 mg Tobramycin/Dexamethasone (Tobradex Opht Susp) 1 drop OS QID [facility] Last Admin: 04/26/17 08:46 Dose: 1 drop - Labs Labs: 04/18/17 18:45 04/18/17 18:45 - Constitutional Appears: Well - Head Exam Head Exam: ATRAUMATIC, NORMAL INSPECTION, NORMOCEPHALIC - Eye Exam Pupil Exam: NORMAL ACCOMODATION - Neck Exam Neck Exam: Full ROM, Normal Inspection. absent: Lymphadenopathy - Neurological Exam Neurological Exam: Alert, Awake, CN II-XII Intact, Normal Gait, Oriented x3 Neuro motor strength exam: Left Upper Extremity: 5, Right Upper Extremity: 5, Left Lower Extremity: 5, Right Lower Extremity: 5 Additional comments: Neurological examination unchanged from previous examination. Assessment and Plan (1) Cyst of brain Assessment & Plan: Case discussed with Dr. Mcdermott, awaiting ID recommendations and confirmation from a tertiary center. Continue current medical regimen with dexamethasone 4 mg PO every 8 hours. Status: Acute
[2017-04-26 16:30] LABS: HEMATOCRIT 46.4 % (35.0-51.0); MEAN CELL VOLUME 86.3 fl (80.0-94.0); MEAN CORPUSCULAR HEMOGLOBIN 28.7 pg (27.0-31.0); MEAN CORPUSCULAR HGB CONC 33.2 g/dL (33.0-37.0); RED CELL DISTRIBUTION WIDTH 13.1 % (11.5-14.5); WHITE BLOOD COUNT 14.9 K/uL (4.8-10.8)
[2017-04-26 16:39] LABS: BLOOD UREA NITROGEN 19 mg/dl (9-20); CALCIUM 8.4 mg/dL (8.4-10.2); CARBON DIOXIDE 25 mmol/L (22-30); CHLORIDE 100 mmol/L (98-107); GFR AFRICAN-AMERICAN > 60; GLUCOSE,RANDOM 169 mg/dL (75-110); POTASSIUM 4.5 MMOL/L (3.6-5.0); SODIUM 141 mmol/l (132-148)
--- NOTE | 2017-04-26 18:28 | CP.PCM.PN ---
Subjective - Date & Time of Evaluation Date of Evaluation: 04/26/17 Time of Evaluation: 18:27 - Subjective Subjective: ID Note- Pt. seen and examined today. Denies any new events overnight. still states intermittently he feels slight sensation of vibration on his right side but not today so far. denies any MCCLURE today. Objective - Vital Signs/Intake and Output Vital Signs (last 24 hours): Temp Pulse Resp BP Pulse Ox 98.1 F 84 18 137/80 97 04/26/17 16:00 04/26/17 16:00 04/26/17 16:00 04/26/17 16:00 04/26/17 16:00 - Medications Medications: Current Medications Albendazole (Albenza 200 Mg Tab) 800 mg PO DAILY [facility] Cyanocobalamin (Vitamin B12 1000 Mcg/Ml Inj) 1,000 mcg IM DAILY [facility] Last Admin: 04/26/17 08:47 Dose: 1,000 mcg Dexamethasone (Decadron) 4 mg PO Q8H [facility] Divalproex Sodium (Depakote Dr(*Bid*)) 750 mg PO BID [facility] Last Admin: 04/26/17 16:53 Dose: 750 mg Famotidine (Pepcid) 20 mg PO BID [facility] Last Admin: 04/26/17 16:54 Dose: 20 mg Tobramycin/Dexamethasone (Tobradex Opht Susp) 1 drop OS QID [facility] Last Admin: 04/26/17 16:53 Dose: 1 drop - Labs Labs: - Constitutional Appears: No Acute Distress - Head Exam Head Exam: ATRAUMATIC - Eye Exam Eye Exam: EOMI, PERRL - ENT Exam ENT Exam: Normal Oropharynx - Neck Exam Neck Exam: Full ROM Additional comments: supple - Respiratory Exam Respiratory Exam: Clear to Ausculation Bilateral, NORMAL BREATHING PATTERN - Cardiovascular Exam Cardiovascular Exam: RRR, +S1, +S2 - GI/Abdominal Exam GI & Abdominal Exam: Soft, Normal Bowel Sounds Additional comments: NT, ND - Extremities Exam Extremities Exam: Normal Inspection - Neurological Exam Neurological Exam: Alert, Awake, Oriented x3 - Additional Findings Additional findings: Laboratory Results - last 72 hr 04/25/17 04/26/17 04/26/17 09:30 16:08 16:08 WBC 14.9 H D RBC 5.38 Hgb 15.4 Hct 46.4 MCV 86.3 MCH 28.7 MCHC 33.2 RDW 13.1 Plt Count 163 Sodium 141 Potassium 4.5 Chloride 100 Carbon Dioxide 25 Anion Gap 20 BUN 19 Creatinine 0.7 L Est GFR ( Amer) > 60 Est GFR (Non-Af Amer) > 60 Random Glucose 169 H Calcium 8.4 Valproic Acid 44.8 L Microbiology 04/20/17 12:41 Naris MRSA Culture (Admit) - Final MRSA NOT DETECTED 04/19/17 Unknown Naris MRSA Culture (Admit) - Final MRSA NOT DETECTED Assessment and Plan (1) Seizure Status: Acute (2) Cyst of brain Status: Acute - Assessment and Plan (Free Text) Assessment: A/P- 31 year old male from [place] with ? cyst in brain , continued seizure like activity despite being on 2 anti-zeisure meds. afebrile seen by optho and NO intraocular cysticerci as per opthalmologist. MRI with contrast report noted and as per this report no change in the left posterior frontal rim enhancing cyst compared to study in 03/2017 , only slightly decreased in size. had a lengthy conversation. risks vs benefits of initiating antiparasitics were d/w patient and his and mother at length and patient wishes to start the antiparasitic medication at this time . had a lengthy conversation with the neurologist and since pt. has still not been accepted to any tertiary care center and since he still has the cyst on the MRI and + cyticerci quinn advise to initiate albendazole at this time along with the dexamethaosne and the antiseizure meds. advise pt. if he develosp any MCCLURE or increased prssure or any seizure like activity after taking the albendazole to immediately notify his nurse. advise to watch pt. while initiating albendazole for 4-5 days and if he is tolerating it well then early next week he can be d/c on albendazole adn prednisoena dnantiseizure meds and have f/u MRI as outpatient in 2 weeks. Pt. verbalizes full understanding of all above and agrees with above plan of care.
--- NOTE | 2017-04-27 01:02 | CP.PCM.PN ---
Subjective - Date & Time of Evaluation Date of Evaluation: 04/26/17 Time of Evaluation: 08:00 - Subjective Subjective: denies any new complaints to start therapy. he wants to see how it is going to work wbc-14.5 tinea solium b-negative BS -164 in labs Objective - Vital Signs/Intake and Output Vital Signs (last 24 hours): Temp Pulse Resp BP Pulse Ox 98.3 F 84 18 127/83 97 04/27/17 00:12 04/27/17 00:12 04/27/17 00:12 04/27/17 00:12 04/27/17 00:12 Intake and Output: 04/26/17 04/27/17 18:59 06:59 Intake Total 500 Balance 500 - Medications Medications: Current Medications Albendazole (Albenza 200 Mg Tab) 800 mg PO DAILY [facility] Cyanocobalamin (Vitamin B12 1000 Mcg/Ml Inj) 1,000 mcg IM DAILY [facility] Last Admin: 04/26/17 08:47 Dose: 1,000 mcg Dexamethasone (Decadron) 4 mg PO Q8H [facility] Last Admin: 04/26/17 20:33 Dose: 4 mg Divalproex Sodium (Depakote Dr(*Bid*)) 750 mg PO BID [facility] Last Admin: 04/26/17 16:53 Dose: 750 mg Famotidine (Pepcid) 20 mg PO BID [facility] Last Admin: 04/26/17 16:54 Dose: 20 mg Tobramycin/Dexamethasone (Tobradex Opht Susp) 1 drop OS QID [facility] Last Admin: 04/26/17 21:48 Dose: 1 drop - Labs Labs: 04/26/17 16:08 04/26/17 16:08 - Additional Findings Additional findings: Constitutional Appears: No Acute Distress , NC\AT, obese - Head Exam Head Exam: ATRAUMATIC, NORMAL INSPECTION - Eye Exam Eye Exam: EOMI, Normal appearance, PERRL - ENT Exam ENT Exam: Normal Exam - Neck Exam Neck exam: Positive for: Normal Inspection. Negative for: Thyromegaly - Respiratory Exam Respiratory Exam: Clear to Auscultation Bilateral, NORMAL BREATHING PATTERN - Cardiovascular Exam Cardiovascular Exam: REGULAR RHYTHM, +S1, +S2, Systolic Murmur - GI/Abdominal Exam GI & Abdominal Exam: Normal Bowel Sounds, Soft. absent: Distended, Organomegaly , Tenderness Back exam: NORMAL INSPECTION, lower back paraspinal tenderness - Neurological Exam Neurological exam: Alert, CN II-XII Intact, Oriented x3 no focal deficits , reflexes-2 + b\L UE\LE, [place]-negative Skin Exam: Intact, pallor, no wounds noted Assessment and Plan (1) Paresthesia Status: Acute (2) Seizure Status: Chronic (3) Cyst of brain Status: Acute - Assessment and Plan (Free Text) Plan: continue care answered all questions to best of my knowledge
[2017-04-27] MEDS ORDERED: Lacosamide 50 MG Tab PO SCH (09:00)
[2017-04-27] MEDS: Divalproex 250 mg DR(BID formulation) PO SCH (09:58)
[2017-04-27] MEDS: Dexamethasone/Tobramycin Ophth Susp OS SCH ×4 (09:59→21:10)
[2017-04-27] MEDS: Lacosamide 50 MG Tab PO SCH ×2 (10:03→16:29)
--- NOTE | 2017-04-27 10:05 | CP.PCM.PN ---
Subjective - Date & Time of Evaluation Date of Evaluation: 04/27/17 Time of Evaluation: 10:03 - Subjective Subjective: Mr. Presley was seen and examined at bedside. He claimed of experiencing sudden vibration and flashing of light in his right eye, but it disappeared quickly when he opened his eyes. This incident happen at 0400. He denies any headache, dizziness, lightheadedness. weakness, numbness, nausea, or vomiting. He is not in any acute distress. Objective - Vital Signs/Intake and Output Vital Signs (last 24 hours): Temp Pulse Resp BP Pulse Ox 98.5 F 68 20 125/76 96 04/27/17 08:00 04/27/17 08:00 04/27/17 08:00 04/27/17 08:00 04/27/17 08:00 - Medications Medications: Current Medications Albendazole (Albenza 200 Mg Tab) 800 mg PO DAILY [facility] Cyanocobalamin (Vitamin B12 1000 Mcg/Ml Inj) 1,000 mcg IM DAILY [facility] Last Admin: 04/26/17 08:47 Dose: 1,000 mcg Dexamethasone (Decadron) 4 mg PO Q8H [facility] Last Admin: 04/27/17 04:46 Dose: 4 mg Famotidine (Pepcid) 20 mg PO BID [facility] Last Admin: 04/27/17 09:58 Dose: 20 mg Tobramycin/Dexamethasone (Tobradex Opht Susp) 1 drop OS QID [facility] Last Admin: 04/27/17 09:59 Dose: 1 drop Valproate Sodium (Depakene) 250 mg PO BID [facility] - Labs Labs: 04/26/17 16:08 04/26/17 16:08 - Constitutional Appears: Well - Head Exam Head Exam: ATRAUMATIC, NORMAL INSPECTION, NORMOCEPHALIC - Neurological Exam Neurological Exam: Alert, Awake, CN II-XII Intact, Oriented x3 Neuro motor strength exam: Left Upper Extremity: 5, Right Upper Extremity: 5, Left Lower Extremity: 5, Right Lower Extremity: 5 Additional comments: Neurological examination unchanged from previous examination. Assessment and Plan (1) Cyst of brain Assessment & Plan: Case discussed with Dr. Mcdermott, with the patient starting with albendazole today , depakote dose of 750 mg PO BID will be decrease to 250 mg PO BID and vimpat 100 mg PO BID will be increase to 150 mg PO BID. Continue other medical regimen. Status: Acute
--- NOTE | 2017-04-27 14:48 | CP.PCM.PN ---
Subjective - Date & Time of Evaluation Date of Evaluation: 04/27/17 Time of Evaluation: 14:46 - Subjective Subjective: ID note- Pt. seen and examined today in ICU.\ pt. in good spirits and denies any complaints today. He states he took the first dose of albendazole and so far no complaints. denies any MCCLURE, denies any blurry vision, denies any vibration sensation on the right side of his body or eye. denies any nausea or vomiting, denies any chills or fever, denies any balance difficulty. Objective - Vital Signs/Intake and Output Vital Signs (last 24 hours): Temp Pulse Resp BP Pulse Ox 98.5 F 72 18 136/79 98 04/27/17 13:25 04/27/17 13:25 04/27/17 13:25 04/27/17 13:25 04/27/17 13:25 - Medications Medications: Current Medications Albendazole (Albenza 200 Mg Tab) 800 mg PO DAILY [facility] Last Admin: 04/27/17 12:47 Dose: 800 mg Cyanocobalamin (Vitamin B12 1000 Mcg/Ml Inj) 1,000 mcg IM DAILY [facility] Last Admin: 04/27/17 10:04 Dose: 1,000 mcg Dexamethasone (Decadron) 4 mg PO Q8H [facility] Last Admin: 04/27/17 12:47 Dose: 4 mg Famotidine (Pepcid) 20 mg PO BID [facility] Last Admin: 04/27/17 09:58 Dose: 20 mg Tobramycin/Dexamethasone (Tobradex Opht Susp) 1 drop OS QID [facility] Last Admin: 04/27/17 12:47 Dose: 1 drop Valproate Sodium (Depakene) 250 mg PO BID [facility] - Labs Labs: - Constitutional Appears: No Acute Distress - Head Exam Head Exam: ATRAUMATIC - Eye Exam Eye Exam: EOMI, PERRL - ENT Exam ENT Exam: Normal Oropharynx - Neck Exam Neck Exam: Full ROM - Respiratory Exam Respiratory Exam: Clear to Ausculation Bilateral, NORMAL BREATHING PATTERN - Cardiovascular Exam Cardiovascular Exam: RRR, +S1, +S2 - GI/Abdominal Exam GI & Abdominal Exam: Soft, Normal Bowel Sounds Additional comments: NT, ND - Extremities Exam Extremities Exam: Normal Inspection - Neurological Exam Neurological Exam: Alert, Normal Gait, Oriented x3 - Additional Findings Additional findings: Laboratory Results - last 72 hr 04/25/17 04/26/17 04/26/17 09:30 16:08 16:08 WBC 14.9 H D RBC 5.38 Hgb 15.4 Hct 46.4 MCV 86.3 MCH 28.7 MCHC 33.2 RDW 13.1 Plt Count 163 Sodium 141 Potassium 4.5 Chloride 100 Carbon Dioxide 25 Anion Gap 20 BUN 19 Creatinine 0.7 L Est GFR ( Amer) > 60 Est GFR (Non-Af Amer) > 60 Random Glucose 169 H Hemoglobin A1c Calcium 8.4 Valproic Acid 44.8 L 04/27/17 05:20 WBC RBC Hgb Hct MCV MCH MCHC RDW Plt Count Sodium Potassium Chloride Carbon Dioxide Anion Gap BUN Creatinine Est GFR ( Amer) Est GFR (Non-Af Amer) Random Glucose Hemoglobin A1c 5.7 Calcium Valproic Acid Microbiology 04/20/17 12:41 Naris MRSA Culture (Admit) - Final MRSA NOT DETECTED 04/19/17 Unknown Naris MRSA Culture (Admit) - Final MRSA NOT DETECTED Assessment and Plan (1) Seizure Status: Acute (2) Cyst of brain Status: Acute - Assessment and Plan (Free Text) Assessment: A/P- 31 year old male from [place] with ? cyst in brain , continued seizure like activity despite being on 2 anti-zeisure meds. slight leukocytosis from 04/26/2017 most likely secondary to the dexamathasone. afebrile no MCCLURE, no vibration sensation. no side effects so far to the albendazole. Plan- continue with current albendazole dose of 800 mg daily, day #2 continue with current dexamethasone dose as per neuro. antiseizure medication adjustment as per Neuro. advise pt. if he develosp any MCCLURE or increased prssure or any seizure like activity after taking the albendazole to immediately notify his nurse. advise to watch pt. while initiating albendazole for 4-5 days and if he is tolerating it well then early next week he can be d/c on albendazole and prednisoen and antiseizure meds and have f/u MRI as outpatient in 2 weeks. Pt. verbalizes full understanding of all above and agrees with above plan of care. ICu time 45 min.
--- NOTE | 2017-04-27 15:46 | CP.PCM.PCO ---
Physician Communication Note - Physician Communication Note Physician Communication Note: Transfer to ICU for Neuro-monitoring ( [id number] / Seizure Precautions)
[2017-04-27 18:23] LABS: TAENIA SOLIUM LARVA AB IgG NEGATIVE
--- NOTE | 2017-04-27 21:03 | CP.PCM.PN ---
Subjective - Date & Time of Evaluation Date of Evaluation: 04/27/17 Time of Evaluation: 09:00 - Subjective Subjective: his symtoms remain same started on therapy- D-2 [id number], no new issues so far he is happy no seizure episodes. on decadron. Objective - Vital Signs/Intake and Output Vital Signs (last 24 hours): Temp Pulse Resp BP Pulse Ox 98.2 F 73 18 138/57 L 96 04/27/17 19:55 04/27/17 19:55 04/27/17 19:55 04/27/17 19:55 04/27/17 19:55 - Medications Medications: Current Medications Albendazole (Albenza 200 Mg Tab) 800 mg PO DAILY [facility] Last Admin: 04/27/17 12:47 Dose: 800 mg Cyanocobalamin (Vitamin B12 1000 Mcg/Ml Inj) 1,000 mcg IM DAILY [facility] Last Admin: 04/27/17 10:04 Dose: 1,000 mcg Dexamethasone (Decadron) 4 mg PO Q8H [facility] Last Admin: 04/27/17 12:47 Dose: 4 mg Famotidine (Pepcid) 20 mg PO BID [facility] Last Admin: 04/27/17 16:27 Dose: 20 mg Tobramycin/Dexamethasone (Tobradex Opht Susp) 1 drop OS QID [facility] Last Admin: 04/27/17 16:28 Dose: 1 drop Valproate Sodium (Depakene) 250 mg PO BID [facility] Last Admin: 04/27/17 16:27 Dose: 250 mg - Labs Labs: 04/26/17 16:08 04/26/17 16:08 - Additional Findings Additional findings: Constitutional Appears: No Acute Distress , NC\AT, obese - Head Exam Head Exam: ATRAUMATIC, NORMAL INSPECTION - Eye Exam Eye Exam: EOMI, Normal appearance, PERRL - ENT Exam ENT Exam: Normal Exam - Neck Exam Neck exam: Positive for: Normal Inspection. Negative for: Thyromegaly - Respiratory Exam Respiratory Exam: Clear to Auscultation Bilateral, NORMAL BREATHING PATTERN - Cardiovascular Exam Cardiovascular Exam: REGULAR RHYTHM, +S1, +S2, Systolic Murmur - GI/Abdominal Exam GI & Abdominal Exam: Normal Bowel Sounds, Soft. absent: Distended, Organomegaly , Tenderness Back exam: NORMAL INSPECTION, lower back paraspinal tenderness - Neurological Exam Neurological exam: Alert, CN II-XII Intact, Oriented x3 no focal deficits , reflexes-2 + b\L UE\LE, [place]-negative Skin Exam: Intact, pallor, no wounds noted Assessment and Plan (1) Paresthesia Status: Acute (2) Seizure Status: Chronic (3) Cyst of brain Status: Acute - Assessment and Plan (Free Text) Plan: rx for neurocysticercosis continue meds neurochecks labs noted
[2017-04-28 06:30] LABS: HEMATOCRIT 47.1 % (35.0-51.0); MEAN CELL VOLUME 86.9 fl (80.0-94.0); MEAN CORPUSCULAR HEMOGLOBIN 28.6 pg (27.0-31.0); MEAN CORPUSCULAR HGB CONC 32.9 g/dL (33.0-37.0); RED CELL DISTRIBUTION WIDTH 13.1 % (11.5-14.5); WHITE BLOOD COUNT 17.4 K/uL (4.8-10.8)
[2017-04-28 06:42] LABS: BLOOD UREA NITROGEN 20 mg/dl (9-20); CALCIUM 8.6 mg/dL (8.4-10.2); CARBON DIOXIDE 25 mmol/L (22-30); CHLORIDE 100 mmol/L (98-107); GFR AFRICAN-AMERICAN > 60; GLUCOSE,RANDOM 111 mg/dL (75-110); POTASSIUM 4.6 MMOL/L (3.6-5.0); SODIUM 139 mmol/l (132-148)
--- NOTE | 2017-04-28 08:17 | CP.PCM.PCO ---
Physician Communication Note - Physician Communication Note Physician Communication Note: Asymptomatic in ICU last 24H, stable for Tele Bed Observation and Mgmt.
[2017-04-28] MEDS: Dexamethasone/Tobramycin Ophth Susp OS SCH ×4 (09:10→22:35)
[2017-04-28] MEDS: Lacosamide 50 MG Tab PO SCH ×2 (09:18→16:15)
--- NOTE | 2017-04-28 09:20 | CP.PCM.PN ---
Subjective - Date & Time of Evaluation Date of Evaluation: 04/28/17 Time of Evaluation: 09:18 - Subjective Subjective: Mr. Presley was seen and examined at the bedside. He denies any seizures, headache, lightheadedness, dizziness, weakness, gait instability, nausea, or vomiting. He is not in any kind of distress. There was no untoward events overnight. Objective - Vital Signs/Intake and Output Vital Signs (last 24 hours): Temp Pulse Resp BP Pulse Ox 98.4 F 81 26 H 143/79 97 04/28/17 08:00 04/28/17 08:00 04/28/17 08:00 04/28/17 08:00 04/28/17 08:00 Intake and Output: 04/28/17 04/28/17 06:59 18:59 Intake Total 0 Balance 0 - Medications Medications: Current Medications Albendazole (Albenza 200 Mg Tab) 800 mg PO DAILY [facility] Last Admin: 04/27/17 12:47 Dose: 800 mg Cyanocobalamin (Vitamin B12 1000 Mcg/Ml Inj) 1,000 mcg IM DAILY [facility] Last Admin: 04/27/17 10:04 Dose: 1,000 mcg Dexamethasone (Decadron) 4 mg PO Q8H [facility] Last Admin: 04/28/17 05:42 Dose: 4 mg Famotidine (Pepcid) 20 mg PO BID [facility] Last Admin: 04/27/17 16:27 Dose: 20 mg Tobramycin/Dexamethasone (Tobradex Opht Susp) 1 drop OS QID [facility] Last Admin: 04/27/17 21:10 Dose: 1 drop Valproate Sodium (Depakene) 250 mg PO BID [facility] Last Admin: 04/27/17 16:27 Dose: 250 mg - Labs Labs: 04/28/17 05:15 04/28/17 05:20 - Constitutional Appears: Well - Head Exam Head Exam: ATRAUMATIC, NORMAL INSPECTION, NORMOCEPHALIC - Neurological Exam Neurological Exam: CN II-XII Intact, Normal Gait, Oriented x3 Neuro motor strength exam: Left Upper Extremity: 5, Right Upper Extremity: 5, Left Lower Extremity: 5, Right Lower Extremity: 5 Additional comments: Neurological unchanged from previous examination. Assessment and Plan (1) Cyst of brain Assessment & Plan: Case discussed with Dr. Mcdermott, continue with current medical, physical, occupational therapy. Will recommend to check hepatic function for any side effects of albendazole and depakote. Status: Acute
[2017-04-28 09:41] LABS: ALB/GLOB RATIO 1.3 (1.0-2.1); BILIRUBIN,TOTAL 0.6 mg/dl (0.2-1.3); TOTAL PROTEIN 6.3 G/DL (6.3-8.2)
--- NOTE | 2017-04-28 13:25 | CP.PCM.PN ---
Subjective - Date & Time of Evaluation Date of Evaluation: 04/28/17 Time of Evaluation: 13:23 - Subjective Subjective: ID Note- pt. seen and examine on tele floor today. Pt. is in good spirits and denies any complaints today. denies any MCCLURE, denies any vibration sensation. denies any chils, denies any cough. Objective - Vital Signs/Intake and Output Vital Signs (last 24 hours): Temp Pulse Resp BP Pulse Ox 97.9 F 71 18 134/81 98 04/28/17 11:30 04/28/17 11:30 04/28/17 11:30 04/28/17 11:30 04/28/17 11:30 Intake and Output: 04/28/17 04/28/17 06:59 18:59 Intake Total 0 Balance 0 - Medications Medications: Current Medications Albendazole (Albenza 200 Mg Tab) 800 mg PO DAILY [facility] Last Admin: 04/27/17 12:47 Dose: 800 mg Cyanocobalamin (Vitamin B12 1000 Mcg/Ml Inj) 1,000 mcg IM DAILY [facility] Last Admin: 04/28/17 09:10 Dose: 1,000 mcg Dexamethasone (Decadron) 4 mg PO Q8H [facility] Last Admin: 04/28/17 12:48 Dose: 4 mg Famotidine (Pepcid) 20 mg PO BID [facility] Last Admin: 04/28/17 09:09 Dose: 20 mg Tobramycin/Dexamethasone (Tobradex Opht Susp) 1 drop OS QID [facility] Last Admin: 04/28/17 12:48 Dose: 1 drop Valproate Sodium (Depakene) 250 mg PO BID [facility] Last Admin: 04/28/17 09:10 Dose: 250 mg - Labs Labs: - Constitutional Appears: No Acute Distress - Head Exam Head Exam: ATRAUMATIC - Eye Exam Eye Exam: EOMI, PERRL - ENT Exam ENT Exam: Normal Oropharynx - Neck Exam Neck Exam: Full ROM - Respiratory Exam Respiratory Exam: Clear to Ausculation Bilateral, NORMAL BREATHING PATTERN - Cardiovascular Exam Cardiovascular Exam: RRR, +S1, +S2 - GI/Abdominal Exam GI & Abdominal Exam: Soft, Normal Bowel Sounds Additional comments: NT, ND - Extremities Exam Extremities Exam: Normal Inspection - Neurological Exam Neurological Exam: Alert, Awake, Oriented x3 - Additional Findings Additional findings: Laboratory Results - last 72 hr 04/20/17 04/26/17 04/26/17 08:55 16:08 16:08 WBC 14.9 H D RBC 5.38 Hgb 15.4 Hct 46.4 MCV 86.3 MCH 28.7 MCHC 33.2 RDW 13.1 Plt Count 163 Sodium 141 Potassium 4.5 Chloride 100 Carbon Dioxide 25 Anion Gap 20 BUN 19 Creatinine 0.7 L Est GFR ( Amer) > 60 Est GFR (Non-Af Amer) > 60 Random Glucose 169 H Hemoglobin A1c Calcium 8.4 Total Bilirubin Direct Bilirubin AST ALT Alkaline Phosphatase Total Protein Albumin Globulin Albumin/Globulin Ratio [place] solium Antibody Negative 04/27/17 04/28/17 04/28/17 05:20 05:15 05:20 WBC 17.4 H RBC 5.42 Hgb 15.5 Hct 47.1 MCV 86.9 MCH 28.6 MCHC 32.9 L RDW 13.1 Plt Count 152 Sodium 139 Potassium 4.6 Chloride 100 Carbon Dioxide 25 Anion Gap 18 BUN 20 Creatinine 0.6 L Est GFR ( Amer) > 60 Est GFR (Non-Af Amer) > 60 Random Glucose 111 H Hemoglobin A1c 5.7 Calcium 8.6 Total Bilirubin Direct Bilirubin AST ALT Alkaline Phosphatase Total Protein Albumin Globulin Albumin/Globulin Ratio [place] solium Antibody 04/28/17 05:20 WBC RBC Hgb Hct MCV MCH MCHC RDW Plt Count Sodium Potassium Chloride Carbon Dioxide Anion Gap BUN Creatinine Est GFR ( Amer) Est GFR (Non-Af Amer) Random Glucose Hemoglobin A1c Calcium Total Bilirubin 0.6 Direct Bilirubin 0.3 AST 24 ALT 33 Alkaline Phosphatase 74 Total Protein 6.3 Albumin 3.6 Globulin 2.7 Albumin/Globulin Ratio 1.3 Taenia solium Antibody Microbiology 04/20/17 12:41 Naris MRSA Culture (Admit) - Final MRSA NOT DETECTED 04/19/17 Unknown Naris MRSA Culture (Admit) - Final MRSA NOT DETECTED Assessment and Plan (1) Seizure Status: Chronic (2) Cyst of brain Status: Acute - Assessment and Plan (Free Text) Assessment: A/P- 31 year old male from [place] with ? cyst in brain , continued seizure like activity despite being on 2 anti-zeisure meds. slight leukocytosis from 04/26/2017 most likely secondary to the dexamathasone. afebrile no MCCLURE, no vibration sensation. no side effects so far to the albendazole. tenia solium western blot was just reported today as Negative, however, tenia solium Saira test from last admission was 1.27 (positive) and since the test not very sensitive in the diagnosis of Neurocysticercosis, specailly when there is a single cyst. diagnosis more based on clinical signs and imaging. still await the saira test from this admission as well , spoke with Susan from the lab . Plan- continue with current albendazole dose of 800 mg daily, day #3. continue with current dexamethasone dose as per neuro. antiseizure medication adjustment as per Neuro. advise pt. if he develosp any MCCLURE or increased prssure or any seizure like activity after taking the albendazole to immediately notify his nurse. advise to watch pt. while initiating albendazole for 4-5 days and if he is tolerating it well then early next week he can be d/c on albendazole and prednisoen and antiseizure meds and have f/u MRI as outpatient in 2 weeks. Pt. verbalizes full understanding of all above and agrees with above plan of care.
--- NOTE | 2017-04-28 20:46 | CP.PCM.PN ---
Subjective - Date & Time of Evaluation Date of Evaluation: 04/28/17 Time of Evaluation: 09:00 - Subjective Subjective: stable vitals monitoring in ICU no complaints. did not have good sleep. Objective - Vital Signs/Intake and Output Vital Signs (last 24 hours): Temp Pulse Resp BP Pulse Ox 98 F 72 19 118/74 96 04/28/17 20:04 04/28/17 20:04 04/28/17 20:04 04/28/17 20:04 04/28/17 20:04 Intake and Output: 04/28/17 04/29/17 18:59 06:59 Intake Total 0 Balance 0 - Medications Medications: Current Medications Albendazole (Albenza 200 Mg Tab) 800 mg PO DAILY@1800 [facility] Last Admin: 04/28/17 17:42 Dose: 800 mg Cyanocobalamin (Vitamin B12 1000 Mcg/Ml Inj) 1,000 mcg IM DAILY [facility] Last Admin: 04/28/17 09:10 Dose: 1,000 mcg Dexamethasone (Decadron) 4 mg PO Q8H [facility] Last Admin: 04/28/17 12:48 Dose: 4 mg Famotidine (Pepcid) 20 mg PO BID [facility] Last Admin: 04/28/17 16:15 Dose: 20 mg Tobramycin/Dexamethasone (Tobradex Opht Susp) 1 drop OS QID [facility] Last Admin: 04/28/17 16:16 Dose: 1 drop Valproate Sodium (Depakene) 250 mg PO BID [facility] Last Admin: 04/28/17 16:15 Dose: 250 mg - Labs Labs: 04/28/17 05:15 04/28/17 05:20 - Additional Findings Additional findings: Constitutional Appears: No Acute Distress , [place]\AT, obese - Head Exam Head Exam: ATRAUMATIC, NORMAL INSPECTION - Eye Exam Eye Exam: EOMI, Normal appearance, PERRL - ENT Exam ENT Exam: Normal Exam - Neck Exam Neck exam: Positive for: Normal Inspection. Negative for: Thyromegaly - Respiratory Exam Respiratory Exam: Clear to Auscultation Bilateral, NORMAL BREATHING PATTERN - Cardiovascular Exam Cardiovascular Exam: REGULAR RHYTHM, +S1, +S2, Systolic Murmur - GI/Abdominal Exam GI & Abdominal Exam: Normal Bowel Sounds, Soft. absent: Distended, Organomegaly , Tenderness Back exam: NORMAL INSPECTION, lower back paraspinal tenderness - Neurological Exam Neurological exam: Alert, CN II-XII Intact, Oriented x3 no focal deficits , reflexes-2 + b\L UE\LE, [place]-negative Skin Exam: Intact, pallor, no wounds noted Assessment and Plan (1) Paresthesia Status: Acute (2) Seizure Status: Chronic (3) Cyst of brain Status: Acute - Assessment and Plan (Free Text) Plan: continue meds day-3 rx reviwed ID\Neuro note continue decadron etc
[2017-04-29] MEDS: Dexamethasone/Tobramycin Ophth Susp OS SCH ×4 (09:08→21:16)
[2017-04-29] MEDS: Lacosamide 50 MG Tab PO SCH ×2 (09:15→16:25)
--- NOTE | 2017-04-29 10:51 | CP.PCM.PN ---
Subjective - Date & Time of Evaluation Date of Evaluation: 04/29/17 Time of Evaluation: 10:49 - Subjective Subjective: Mr. Presley was seen and examined at the bedside. He denies any headache, numbness, lightheadedness, weakness or any feeling of vibration especially in his right eye. He claims of having great appetite and able to ambulate around the unit without any gait instability. There was no untoward events overnight. Objective - Vital Signs/Intake and Output Vital Signs (last 24 hours): Temp Pulse Resp BP Pulse Ox 97.5 F L 67 18 125/81 100 04/29/17 07:59 04/29/17 07:59 04/29/17 07:59 04/29/17 07:59 04/29/17 07:59 - Medications Medications: Current Medications Albendazole (Albenza 200 Mg Tab) 800 mg PO DAILY@1800 [facility] Last Admin: 04/28/17 17:42 Dose: 800 mg Cyanocobalamin (Vitamin B12 1000 Mcg/Ml Inj) 1,000 mcg IM DAILY [facility] Last Admin: 04/29/17 09:08 Dose: 1,000 mcg Dexamethasone (Decadron) 4 mg PO Q8H [facility] Last Admin: 04/29/17 05:01 Dose: 4 mg Famotidine (Pepcid) 20 mg PO BID [facility] Last Admin: 04/29/17 09:08 Dose: 20 mg Lacosamide (Vimpat) 150 mg PO BID [facility] Last Admin: 04/29/17 09:15 Dose: 150 mg Tobramycin/Dexamethasone (Tobradex Opht Susp) 1 drop OS QID [facility] Last Admin: 04/29/17 09:08 Dose: 1 drop Valproate Sodium (Depakene) 250 mg PO BID [facility] Last Admin: 04/29/17 09:08 Dose: 250 mg - Labs Labs: 04/28/17 05:15 04/28/17 05:20 - Constitutional Appears: Well - Neurological Exam Neurological Exam: Alert, Awake, CN II-XII Intact, Normal Gait, Oriented x3 Neuro motor strength exam: Left Upper Extremity: 5, Right Upper Extremity: 5, Left Lower Extremity: 5, Right Lower Extremity: 5 Additional comments: Neurologically unchanged from previous examination. Assessment and Plan (1) Cyst of brain Assessment & Plan: Case discussed with Dr. Mcdermott, continue albendazole and other medical therapy. Re-educated the patient regarding sudden onset of headache or any numbness of any extremities to report right away to his nurse. He verbalizes understanding Status: Acute
[2017-04-29] MEDS ORDERED: Alum-Mag Hydrox-Simethicone Susp (30 mL) PO PRN (20:51)
--- NOTE | 2017-04-29 21:06 | CP.PCM.PN ---
Subjective - Date & Time of Evaluation Date of Evaluation: 04/29/17 Time of Evaluation: 09:00 - Subjective Subjective: stable vitals.did slep well, denies headaches, diarrhea. sitting in chair. Objective - Vital Signs/Intake and Output Vital Signs (last 24 hours): Temp Pulse Resp BP Pulse Ox 98.5 F 76 18 123/78 99 04/29/17 19:49 04/29/17 20:23 04/29/17 19:49 04/29/17 19:49 04/29/17 19:49 Intake and Output: 04/29/17 04/30/17 18:59 06:59 Intake Total 1000 Balance 1000 - Medications Medications: Current Medications Albendazole (Albenza 200 Mg Tab) 800 mg PO DAILY@1800 [facility] Last Admin: 04/29/17 18:20 Dose: 800 mg Cyanocobalamin (Vitamin B12 1000 Mcg/Ml Inj) 1,000 mcg IM DAILY [facility] Last Admin: 04/29/17 09:08 Dose: 1,000 mcg Dexamethasone (Decadron) 4 mg PO Q8H [facility] Last Admin: 04/29/17 12:06 Dose: 4 mg Famotidine (Pepcid) 20 mg PO BID [facility] Last Admin: 04/29/17 16:21 Dose: 20 mg Lacosamide (Vimpat) 150 mg PO BID [facility] Last Admin: 04/29/17 16:25 Dose: 150 mg Tobramycin/Dexamethasone (Tobradex Opht Susp) 1 drop OS QID [facility] Last Admin: 04/29/17 16:22 Dose: 1 drop Valproate Sodium (Depakene) 250 mg PO BID [facility] Last Admin: 04/29/17 16:21 Dose: 250 mg - Labs Labs: 04/28/17 05:15 04/28/17 05:20 - Additional Findings Additional findings: Constitutional Appears: No Acute Distress , NC\AT - Head Exam Head Exam: ATRAUMATIC, NORMAL INSPECTION - Eye Exam Eye Exam: EOMI, Normal appearance, PERRL - ENT Exam ENT Exam: Normal Exam - Neck Exam Neck exam: Positive for: Normal Inspection. Negative for: Thyromegaly - Respiratory Exam Respiratory Exam: Auscultation Bilateral normal breath sounds , NORMAL BREATHING PATTERN - Cardiovascular Exam Cardiovascular Exam: REGULAR RHYTHM, +S1, +S2, no Systolic Murmur - GI/Abdominal Exam GI & Abdominal Exam: hypoactive Bowel Sounds, Soft. absent: Distended, Organomegaly, Tenderness noted fullness Back exam: NORMAL INSPECTION, lower back paraspinal tenderness - Neurological Exam Neurological exam: Alert, CN II-XII Intact, Oriented x3 no focal deficits , Skin Exam: Intact, pallor, no wounds note. no edema until knee up. Assessment and Plan (1) Paresthesia Status: Acute (2) Seizure Status: Chronic (3) Cyst of brain Status: Acute
[2017-04-30] MEDS: Dexamethasone/Tobramycin Ophth Susp OS SCH ×4 (08:50→21:20)
[2017-04-30] MEDS: Lacosamide 50 MG Tab PO SCH ×2 (11:03→16:46)
--- NOTE | 2017-04-30 16:10 | CP.PCM.PN ---
Subjective - Date & Time of Evaluation Date of Evaluation: 04/30/17 Time of Evaluation: 16:08 - Subjective Subjective: Mr. Fernandez Francois was seen and examined today at bedside. Had no complaints. There were no acute events overnight. Objective - Vital Signs/Intake and Output Vital Signs (last 24 hours): Temp Pulse Resp BP Pulse Ox 98.7 F 69 18 119/75 98 04/30/17 12:07 04/30/17 12:07 04/30/17 12:07 04/30/17 12:07 04/30/17 12:07 Intake and Output: 04/30/17 04/30/17 06:59 18:59 Intake Total 400 Balance 400 - Medications Medications: Current Medications Al Hydrox/Mg Hydrox/Simethicone (Maalox Plus 30 Ml) 30 ml PO Q8 PRN PRN Reason: Indigestion / Heartburn Last Admin: 04/29/17 21:15 Dose: 30 ml Albendazole (Albenza 200 Mg Tab) 800 mg PO DAILY@1800 [facility] Last Admin: 04/29/17 18:20 Dose: 800 mg Cyanocobalamin (Vitamin B12 1000 Mcg/Ml Inj) 1,000 mcg IM DAILY [facility] Last Admin: 04/30/17 09:06 Dose: 1,000 mcg Dexamethasone (Decadron) 4 mg PO Q12 [facility] Divalproex Sodium (Depakote Er(Once Daily)) 250 mg PO DAILY [facility] Famotidine (Pepcid) 20 mg PO BID [facility] Last Admin: 04/30/17 08:50 Dose: 20 mg Lacosamide (Vimpat) 150 mg PO BID [facility] Last Admin: 04/30/17 11:03 Dose: 150 mg Tobramycin/Dexamethasone (Tobradex Opht Susp) 1 drop OS QID [facility] Last Admin: 04/30/17 13:04 Dose: 1 drop - Labs Labs: 04/28/17 05:15 04/28/17 05:20 - Neurological Exam Neurological Exam: Alert, Awake, CN II-XII Intact, Normal Gait, Oriented x3, Reflexes Normal Neuro motor strength exam: Left Upper Extremity: 5, Right Upper Extremity: 5, Left Lower Extremity: 5, Right Lower Extremity: 5 Assessment and Plan (1) Seizure Assessment & Plan: No episodes reported. Will go down on the depakote to 250 mg QHS, and continue the current dose of Vimpat. Status: Chronic (2) Cyst of brain Assessment & Plan: Started treatment with Albendazole without any complications. Will repeat MRI of the brain on Tuesday and decrease the frequency of the Decadron to 4 mg Q12 hours. Status: Acute (3) Episode of generalized weakness Status: Resolved (4) Neurocysticercosis Status: Chronic (5) Slurring of speech Status: Resolved
[2017-04-30] MEDS: Divalproex 250 mg ER (ONCE DAILY formulation) PO SCH (19:10)
--- NOTE | 2017-05-01 02:30 | CP.PCM.PN ---
Subjective - Date & Time of Evaluation Date of Evaluation: 04/30/17 Time of Evaluation: 09:00 - Subjective Subjective: sitting in bed. no new complaints except he felt nauseous and stomach discomfort last pm, got better with maalox Objective - Vital Signs/Intake and Output Vital Signs (last 24 hours): Temp Pulse Resp BP Pulse Ox 98.2 F 71 20 122/79 97 05/01/17 00:08 05/01/17 00:08 05/01/17 00:08 05/01/17 00:08 05/01/17 00:08 Intake and Output: 04/30/17 05/01/17 18:59 06:59 Intake Total 1200 Balance 1200 - Medications Medications: Current Medications Al Hydrox/Mg Hydrox/Simethicone (Maalox Plus 30 Ml) 30 ml PO Q8 PRN PRN Reason: Indigestion / Heartburn Last Admin: 04/29/17 21:15 Dose: 30 ml Albendazole (Albenza 200 Mg Tab) 800 mg PO DAILY@1800 [facility] Last Admin: 04/30/17 19:10 Dose: 800 mg Cyanocobalamin (Vitamin B12 1000 Mcg/Ml Inj) 1,000 mcg IM DAILY [facility] Last Admin: 04/30/17 09:06 Dose: 1,000 mcg Dexamethasone (Decadron) 4 mg PO Q12 [facility] Last Admin: 04/30/17 21:20 Dose: 4 mg Divalproex Sodium (Depakote Er(Once Daily)) 250 mg PO DAILY [facility] Last Admin: 04/30/17 19:10 Dose: 250 mg Famotidine (Pepcid) 20 mg PO BID [facility] Last Admin: 04/30/17 16:44 Dose: 20 mg Lacosamide (Vimpat) 150 mg PO BID [facility] Last Admin: 04/30/17 16:46 Dose: 150 mg Tobramycin/Dexamethasone (Tobradex Opht Susp) 1 drop OS QID [facility] Last Admin: 04/30/17 21:20 Dose: 1 drop - Labs Labs: 04/28/17 05:15 04/28/17 05:20 Assessment and Plan (1) Paresthesia Status: Acute (2) Seizure Status: Chronic (3) Cyst of brain Status: Acute
[2017-05-01] MEDS: Divalproex 250 mg ER (ONCE DAILY formulation) PO SCH (08:31)
[2017-05-01] MEDS: Dexamethasone/Tobramycin Ophth Susp OS SCH ×4 (08:32→21:29)
[2017-05-01] MEDS: Lacosamide 50 MG Tab PO SCH ×2 (08:34→17:10)
--- NOTE | 2017-05-01 22:47 | CP.PCM.PN ---
Subjective - Date & Time of Evaluation Date of Evaluation: 05/01/17 Time of Evaluation: 07:25 - Subjective Subjective: tolerating well. no new issues denies any stomach issues. stable vitals Objective - Vital Signs/Intake and Output Vital Signs (last 24 hours): Temp Pulse Resp BP Pulse Ox 98.4 F 95 H 18 118/73 97 05/01/17 20:35 05/01/17 20:35 05/01/17 20:35 05/01/17 20:35 05/01/17 20:35 Intake and Output: 05/01/17 05/02/17 18:59 06:59 Intake Total 1080 Balance 1080 - Medications Medications: Current Medications Al Hydrox/Mg Hydrox/Simethicone (Maalox Plus 30 Ml) 30 ml PO Q8 PRN PRN Reason: Indigestion / Heartburn Last Admin: 04/29/17 21:15 Dose: 30 ml Albendazole (Albenza 200 Mg Tab) 800 mg PO DAILY@1800 [facility] Last Admin: 05/01/17 17:08 Dose: 800 mg Cyanocobalamin (Vitamin B12 1000 Mcg/Ml Inj) 1,000 mcg IM DAILY [facility] Last Admin: 05/01/17 08:34 Dose: 1,000 mcg Dexamethasone (Decadron) 4 mg PO Q12 [facility] Last Admin: 05/01/17 21:29 Dose: 4 mg Divalproex Sodium (Depakote Er(Once Daily)) 250 mg PO DAILY [facility] Last Admin: 05/01/17 08:31 Dose: 250 mg Famotidine (Pepcid) 20 mg PO BID [facility] Last Admin: 05/01/17 17:08 Dose: 20 mg Lacosamide (Vimpat) 150 mg PO BID [facility] Last Admin: 05/01/17 17:10 Dose: 150 mg Tobramycin/Dexamethasone (Tobradex Opht Susp) 1 drop OS QID [facility] Last Admin: 05/01/17 21:29 Dose: 1 drop - Labs Labs: 04/28/17 05:15 04/28/17 05:20 Assessment and Plan (1) Paresthesia Status: Acute (2) Seizure Status: Chronic (3) Cyst of brain Status: Acute
[2017-05-02] MEDS: Lacosamide 50 MG Tab PO SCH ×2 (09:14→16:43)
[2017-05-02] MEDS: Divalproex 250 mg ER (ONCE DAILY formulation) PO SCH (09:16)
[2017-05-02] MEDS: Dexamethasone/Tobramycin Ophth Susp OS SCH ×4 (09:17→21:35)
--- NOTE | 2017-05-02 11:38 | CP.PCM.PN ---
Subjective - Date & Time of Evaluation Date of Evaluation: 05/02/17 Time of Evaluation: 11:34 - Subjective Subjective: Mr. Presley was seen and examined at the bedside. He denies any headache, lightheadedness, numbness, weakness, or any seizure activity. He claims of experiencing sudden hot flash feeling from head to neck yesterday, but it did not radiate to other parts of his body. The duration is less than a minute. There was some rashes noted in his bilateral upper extremities, anterior and posterior chest area. He denies any itchiness and claims he noticed it yesterday. There was no untoward events overnight. Objective - Vital Signs/Intake and Output Vital Signs (last 24 hours): Temp Pulse Resp BP Pulse Ox 97.9 F 74 18 125/78 97 05/02/17 09:00 05/02/17 09:00 05/02/17 09:00 05/02/17 09:00 05/02/17 09:00 - Medications Medications: Current Medications Al Hydrox/Mg Hydrox/Simethicone (Maalox Plus 30 Ml) 30 ml PO Q8 PRN PRN Reason: Indigestion / Heartburn Last Admin: 04/29/17 21:15 Dose: 30 ml Albendazole (Albenza 200 Mg Tab) 800 mg PO DAILY@1800 [facility] Last Admin: 05/01/17 17:08 Dose: 800 mg Cyanocobalamin (Vitamin B12 1000 Mcg/Ml Inj) 1,000 mcg IM DAILY [facility] Last Admin: 05/02/17 09:18 Dose: 1,000 mcg Dexamethasone (Decadron) 4 mg PO Q12 [facility] Last Admin: 05/02/17 09:17 Dose: 4 mg Divalproex Sodium (Depakote Er(Once Daily)) 250 mg PO DAILY [facility] Last Admin: 05/02/17 09:16 Dose: 250 mg Famotidine (Pepcid) 20 mg PO BID [facility] Last Admin: 05/02/17 09:15 Dose: 20 mg Lacosamide (Vimpat) 150 mg PO BID [facility] Last Admin: 05/02/17 09:14 Dose: 150 mg Tobramycin/Dexamethasone (Tobradex Opht Susp) 1 drop OS QID [facility] Last Admin: 05/02/17 09:17 Dose: 1 drop - Labs Labs: 04/28/17 05:15 04/28/17 05:20 - Constitutional Appears: Well - Head Exam Head Exam: ATRAUMATIC, NORMAL INSPECTION, NORMOCEPHALIC - Neurological Exam Neurological Exam: Alert, Awake, CN II-XII Intact, Normal Gait, Oriented x3 Neuro motor strength exam: Left Upper Extremity: 5, Right Upper Extremity: 5, Left Lower Extremity: 5, Right Lower Extremity: 5 Additional comments: Neurological unchanged from previous examination Assessment and Plan (1) Cyst of brain Assessment & Plan: Case discussed with Dr. Mcdermott, continue current medical treatment and follow up MRI of the brain today. For ID to evaluate and treat new rashes. Status: Acute
[2017-05-02] MEDS ORDERED: Dexamethasone 6 MG in Sodium Chloride 0.9% 50 ML IVPB ONE (14:22)
[2017-05-02] MEDS ORDERED: DiphenhydrAMINE 50 mg/ml Inj IVP STA (14:23)
[2017-05-02] MEDS ORDERED: Gadodiamide 287 MG/ML VIAL (15ML) IV ONE (14:29)
--- NOTE | 2017-05-02 16:29 | MRI ---
PROCEDURE: MRI BRAIN WITH AND WITHOUT CONTRAST HISTORY: evaluate post-treatment for brain cysts COMPARISON: 04/21/2017, 04/19/2017 and 03/12/2017 TECHNIQUE: Multiplanar, multisequence MR images of the brain were obtained with and without intravenous contrast enhancement. 20 cc Omnipaque was injected intravenously. FINDINGS: HEMORRHAGE: None DWI: No evidence of an acute or early subacute infarction. BRAIN PARENCHYMA: Since the prior examination, there is no significant interval change in size of 8 x 19 x 12 mm T1 hypointense and T2/FLAIR hyperintense well-circumscribed nonenhancing cystic extra-axial left posterior frontal lesion without evidence of mural nodule, surrounding vasogenic edema. The lesion appears more circumscribed and demarcated since the prior examination. The midline sagittal structures are normal. ENHANCEMENT: No abnormal intracranial enhancement. VENTRICLES: The ventricles are normal in size, shape and configuration. CRANIUM: There is normal bone marrow signal pattern. ORBITS: Grossly unremarkable. PARANASAL SINUSES/MASTOIDS: There is a retention cyst/ polyp in the left maxillary sinus and mucosal thickening in the anterior ethmoid and frontal sinuses. The remaining included paranasal sinuses and mastoid air cells are clear. VASCULAR SYSTEM: There are normal signal voids in the larger intracranial arteries. OTHER FINDINGS: None . IMPRESSION: Little interval change in size and morphology of 8 x 19 x 12 mm nonenhancing well-circumscribed left posterior frontal extra-axial cystic lesion. The differential considerations include an adenoid cyst, an neurocysticercosis. Clinical correlation and follow-up is advised.
--- NOTE | 2017-05-02 18:52 | CP.PCM.PN ---
Subjective - Date & Time of Evaluation Date of Evaluation: 05/02/17 Time of Evaluation: 18:52 - Subjective Subjective: ID Note- Pt. seen and examined today. He denies any MCCLURE, denies any nausea. denies any fever or chills. states he has developed non-itchy rash on his back and chest and arms. He states he noticed it 2 days ago but didn't think much of it. He states it's not itchy and does not bother him. Objective - Vital Signs/Intake and Output Vital Signs (last 24 hours): Temp Pulse Resp BP Pulse Ox 98.5 F 75 20 126/74 97 05/02/17 15:49 05/02/17 15:49 05/02/17 15:49 05/02/17 15:49 05/02/17 15:49 Intake and Output: 05/02/17 05/02/17 06:59 18:59 Intake Total 790 Balance 790 - Medications Medications: Current Medications Al Hydrox/Mg Hydrox/Simethicone (Maalox Plus 30 Ml) 30 ml PO Q8 PRN PRN Reason: Indigestion / Heartburn Last Admin: 04/29/17 21:15 Dose: 30 ml Albendazole (Albenza 200 Mg Tab) 800 mg PO DAILY@1800 [facility] Last Admin: 05/01/17 17:08 Dose: 800 mg Cyanocobalamin (Vitamin B12 1000 Mcg/Ml Inj) 1,000 mcg IM DAILY [facility] Last Admin: 05/02/17 09:18 Dose: 1,000 mcg Dexamethasone (Decadron) 4 mg PO Q12 [facility] Last Admin: 05/02/17 09:17 Dose: 4 mg Divalproex Sodium (Depakote Er(Once Daily)) 250 mg PO DAILY [facility] Last Admin: 05/02/17 09:16 Dose: 250 mg Famotidine (Pepcid) 20 mg PO BID [facility] Last Admin: 05/02/17 16:40 Dose: 20 mg Lacosamide (Vimpat) 150 mg PO BID [facility] Last Admin: 05/02/17 16:43 Dose: 150 mg Tobramycin/Dexamethasone (Tobradex Opht Susp) 1 drop OS QID [facility] Last Admin: 05/02/17 16:40 Dose: 1 drop - Labs Labs: - Constitutional Appears: Non-toxic, No Acute Distress - Head Exam Head Exam: ATRAUMATIC - Eye Exam Eye Exam: EOMI, PERRL - ENT Exam ENT Exam: Normal Oropharynx - Neck Exam Neck Exam: Full ROM - Respiratory Exam Respiratory Exam: Clear to Ausculation Bilateral, NORMAL BREATHING PATTERN - Cardiovascular Exam Cardiovascular Exam: RRR, +S1, +S2 - GI/Abdominal Exam GI & Abdominal Exam: Soft, Normal Bowel Sounds Additional comments: NT, ND - Extremities Exam Extremities Exam: Normal Inspection - Neurological Exam Neurological Exam: Alert, Awake, Oriented x3 - Skin Skin Exam: Rash Additional comments: pinpoint small round papular rash on arms and back and chest nonpruritic no erythema - Additional Findings Additional findings: Accession No. : [id number] Patient Name / ID : DANIKA RESENDEZ / [id number] Exam Date : 05/02/2017 14:29:54 ( Approved ) Study Comment : Sex / Age : M / 31Y Creator : Joyce Webb MD Dictator : Joyce Webb MD Gis Programmer : Subsea Engineer : Joyce Webb MD Approver2 : Report Date : 05/02/2017 16:24:19 My Comment : PROCEDURE: MRI BRAIN WITH AND WITHOUT CONTRAST HISTORY: evaluate post-treatment for brain cysts COMPARISON: 04/21/2017, 04/19/2017 and 03/12/2017 TECHNIQUE: Multiplanar, multisequence MR images of the brain were obtained with and without intravenous contrast enhancement. 20 cc Omnipaque was injected intravenously. FINDINGS: HEMORRHAGE: None DWI: No evidence of an acute or early subacute infarction. BRAIN PARENCHYMA: Since the prior examination, there is no significant interval change in size of 8 x 19 x 12 mm T1 hypointense and T2/FLAIR hyperintense well-circumscribed nonenhancing cystic extra-axial left posterior frontal lesion without evidence of mural nodule, surrounding vasogenic edema. The lesion appears more circumscribed and demarcated since the prior examination. The midline sagittal structures are normal. ENHANCEMENT: No abnormal intracranial enhancement. VENTRICLES: The ventricles are normal in size, shape and configuration. CRANIUM: There is normal bone marrow signal pattern. ORBITS: Grossly unremarkable. PARANASAL SINUSES/MASTOIDS: There is a retention cyst/ polyp in the left maxillary sinus and mucosal thickening in the anterior ethmoid and frontal sinuses. The remaining included paranasal sinuses and mastoid air cells are clear. VASCULAR SYSTEM: There are normal signal voids in the larger intracranial arteries. OTHER FINDINGS: None . IMPRESSION: Little interval change in size and morphology of 8 x 19 x 12 mm nonenhancing well-circumscribed left posterior frontal extra-axial cystic lesion. The differential considerations include an adenoid cyst, an neurocysticercosis. Clinical correlation and follow-up is advised. Assessment and Plan (1) Seizure Status: Chronic (2) Cyst of brain Status: Acute - Assessment and Plan (Free Text) Assessment: A/P- 31 year old male from [place] with ? cyst in brain , continued seizure like activity despite being on 2 anti-zeisure meds. slight leukocytosis from 04/26/2017 most likely secondary to the dexamathasone. afebrile no MCCLURE, no vibration sensation. rash most likely allergic response rash hard to tell whether from antiseizure vs antiparasitic medication. MRI report noted - as per report cyst unchanged. tenia solium western blot was just reported today as Negative, however, tenia solium Saira test from last admission was 1.27 (positive) and since the test not very sensitive in the diagnosis of Neurocysticercosis, specailly when there is a single cyst. diagnosis more based on clinical signs and imaging. still await the saira test from this admission as well , spoke with Susan from the lab . Plan- has completed 7 days of albendazole. d/c albendazole today. continue with current dexamethasone dose as per neuro. antiseizure medication adjustment as per Neuro.
--- NOTE | 2017-05-02 23:15 | CP.PCM.PN ---
Subjective - Date & Time of Evaluation Date of Evaluation: 05/02/17 - Subjective Subjective: c\o skin rash on chest\arms,not itchy . ID aware . meds been held. Objective - Vital Signs/Intake and Output Vital Signs (last 24 hours): Temp Pulse Resp BP Pulse Ox 97.7 F 61 20 120/73 97 05/02/17 18:57 05/02/17 18:57 05/02/17 18:57 05/02/17 18:57 05/02/17 18:57 Intake and Output: 05/02/17 05/03/17 18:59 06:59 Intake Total 790 Balance 790 - Medications Medications: Current Medications Al Hydrox/Mg Hydrox/Simethicone (Maalox Plus 30 Ml) 30 ml PO Q8 PRN PRN Reason: Indigestion / Heartburn Last Admin: 04/29/17 21:15 Dose: 30 ml Albendazole (Albenza 200 Mg Tab) 800 mg PO DAILY@1800 [facility] Last Admin: 05/01/17 17:08 Dose: 800 mg Cyanocobalamin (Vitamin B12 1000 Mcg/Ml Inj) 1,000 mcg IM DAILY [facility] Last Admin: 05/02/17 09:18 Dose: 1,000 mcg Dexamethasone (Decadron) 4 mg PO Q12 [facility] Last Admin: 05/02/17 21:34 Dose: 4 mg Divalproex Sodium (Depakote Er(Once Daily)) 250 mg PO DAILY [facility] Last Admin: 05/02/17 09:16 Dose: 250 mg Famotidine (Pepcid) 20 mg PO BID [facility] Last Admin: 05/02/17 16:40 Dose: 20 mg Lacosamide (Vimpat) 150 mg PO BID [facility] Last Admin: 05/02/17 16:43 Dose: 150 mg Tobramycin/Dexamethasone (Tobradex Opht Susp) 1 drop OS QID [facility] Last Admin: 05/02/17 21:35 Dose: 1 drop - Labs Labs: 04/28/17 05:15 04/28/17 05:20 Assessment and Plan (1) Paresthesia Status: Acute (2) Seizure Status: Chronic (3) Cyst of brain Status: Acute
[2017-05-03 05:31] LABS: BASO % 0.1 % (0.0-2.0); HEMATOCRIT 48.7 % (35.0-51.0); LYMPH # 1.9 K/uL (1.0-4.3); MEAN CELL VOLUME 87.8 fl (80.0-94.0); MEAN CORPUSCULAR HEMOGLOBIN 29.1 pg (27.0-31.0); MEAN CORPUSCULAR HGB CONC 33.1 g/dL (33.0-37.0); MEAN PLATELET VOLUME 12.8 fl (7.2-11.7); MONO # 1.3 K/uL (0.0-0.8); MONO % 6.7 % (0.0-10.0); NEUT # 15.8 K/uL (1.8-7.0); NEUT % 83.2 % (50.0-75.0); RED CELL DISTRIBUTION WIDTH 13.5 % (11.5-14.5)
[2017-05-03 05:51] LABS: ALB/GLOB RATIO 1.3 (1.0-2.1); ALKALINE PHOSPHATASE 79 U/L (38-126); ALT/SGPT 81 U/L (21-72); AST/SGOT 46 U/L (17-59); BILIRUBIN,TOTAL 0.8 mg/dl (0.2-1.3); BLOOD UREA NITROGEN 20 mg/dl (9-20); CARBON DIOXIDE 30 mmol/L (22-30); CHLORIDE 99 mmol/L (98-107); GFR AFRICAN-AMERICAN > 60; GLUCOSE,RANDOM 121 mg/dL (75-110); SODIUM 141 mmol/l (132-148); TOTAL PROTEIN 6.4 G/DL (6.3-8.2)
[2017-05-03 05:55] LABS: POTASSIUM 5.3 MMOL/L (3.6-5.0)
[2017-05-03] MEDS: Divalproex 250 mg ER (ONCE DAILY formulation) PO SCH (08:37)
[2017-05-03] MEDS: Dexamethasone/Tobramycin Ophth Susp OS SCH ×4 (08:37→21:15)
[2017-05-03] MEDS: Lacosamide 50 MG Tab PO SCH ×2 (08:49→16:36)
--- NOTE | 2017-05-03 23:28 | CP.PCM.PN ---
Subjective - Subjective Subjective: rash not getting worse. waiting for meds k-5.3,mild ALT elevation Objective - Vital Signs/Intake and Output Vital Signs (last 24 hours): Temp Pulse Resp BP Pulse Ox 98.0 F 72 20 137/85 96 05/03/17 19:36 05/03/17 20:36 05/03/17 19:36 05/03/17 19:36 05/03/17 19:36 Intake and Output: 05/03/17 05/04/17 18:59 06:59 Intake Total 1500 Balance 1500 - Medications Medications: Current Medications Al Hydrox/Mg Hydrox/Simethicone (Maalox Plus 30 Ml) 30 ml PO Q8 PRN PRN Reason: Indigestion / Heartburn Last Admin: 04/29/17 21:15 Dose: 30 ml Albendazole (Albenza 200 Mg Tab) 800 mg PO DAILY@1800 [facility] Last Admin: 05/01/17 17:08 Dose: 800 mg Cyanocobalamin (Vitamin B12 1000 Mcg/Ml Inj) 1,000 mcg IM DAILY [facility] Last Admin: 05/03/17 08:38 Dose: 1,000 mcg Dexamethasone (Decadron) 2 mg PO Q12 [facility] Last Admin: 05/03/17 21:15 Dose: 2 mg Famotidine (Pepcid) 20 mg PO BID [facility] Last Admin: 05/03/17 16:36 Dose: 20 mg Lacosamide (Vimpat) 150 mg PO BID [facility] Last Admin: 05/03/17 16:36 Dose: 150 mg Tobramycin/Dexamethasone (Tobradex Opht Susp) 1 drop OS QID [facility] Last Admin: 05/03/17 21:15 Dose: 1 drop - Labs Labs: 05/03/17 04:30 05/03/17 04:30 Assessment and Plan (1) Paresthesia Status: Acute (2) Seizure Status: Chronic (3) Cyst of brain Status: Acute
[2017-05-04 05:43] LABS: HEMATOCRIT 46.6 % (35.0-51.0); MEAN CELL VOLUME 87.1 fl (80.0-94.0); MEAN CORPUSCULAR HEMOGLOBIN 28.8 pg (27.0-31.0); MEAN CORPUSCULAR HGB CONC 33.1 g/dL (33.0-37.0); RED CELL DISTRIBUTION WIDTH 13.7 % (11.5-14.5); WHITE BLOOD COUNT 16.3 K/uL (4.8-10.8)
[2017-05-04 05:58] LABS: BLOOD UREA NITROGEN 21 mg/dl (9-20); CHLORIDE 101 mmol/L (98-107); GFR AFRICAN-AMERICAN > 60; GLUCOSE,RANDOM 111 mg/dL (75-110); POTASSIUM 4.3 MMOL/L (3.6-5.0); SODIUM 139 mmol/l (132-148)
[2017-05-04 05:59] LABS: ALKALINE PHOSPHATASE 74 U/L (38-126); ALT/SGPT 103 U/L (21-72); AST/SGOT 47 U/L (17-59); BILIRUBIN,TOTAL 0.7 mg/dl (0.2-1.3); CALCIUM 8.7 mg/dL (8.4-10.2); CARBON DIOXIDE 27 mmol/L (22-30); TOTAL PROTEIN 6.1 G/DL (6.3-8.2)
[2017-05-04 06:09] LABS: ALB/GLOB RATIO 1.3 (1.0-2.1)
[2017-05-04 08:37] VITALS: RESP 20; O2SAT 98
[2017-05-04] MEDS: Dexamethasone/Tobramycin Ophth Susp OS SCH ×2 (08:43→12:12)
[2017-05-04] MEDS: Lacosamide 50 MG Tab PO SCH (10:00)
--- NOTE | 2017-05-04 10:39 | CP.PCM.PN ---
Subjective - Date & Time of Evaluation Date of Evaluation: 05/04/17 Time of Evaluation: 10:37 - Subjective Subjective: Mr. Presley was seen and examined at the bedside. He denies any headache, dizziness, lightheadedness, weakness, vibration sensation. He is not in any kind of distress. With recent macules in the skin improving, denies any itchiness. There was no untoward events overnight. Objective - Vital Signs/Intake and Output Vital Signs (last 24 hours): Temp Pulse Resp BP Pulse Ox 98.2 F 58 L 20 102/68 98 05/04/17 08:00 05/04/17 09:00 05/04/17 08:00 05/04/17 08:00 05/04/17 08:00 - Medications Medications: Current Medications Al Hydrox/Mg Hydrox/Simethicone (Maalox Plus 30 Ml) 30 ml PO Q8 PRN PRN Reason: Indigestion / Heartburn Last Admin: 04/29/17 21:15 Dose: 30 ml Albendazole (Albenza 200 Mg Tab) 800 mg PO DAILY@1800 [facility] Last Admin: 05/01/17 17:08 Dose: 800 mg Cyanocobalamin (Vitamin B12 1000 Mcg/Ml Inj) 1,000 mcg IM DAILY [facility] Last Admin: 05/04/17 08:43 Dose: 1,000 mcg Dexamethasone (Decadron) 2 mg PO Q12 [facility] Last Admin: 05/04/17 08:43 Dose: 2 mg Famotidine (Pepcid) 20 mg PO BID [facility] Last Admin: 05/04/17 08:43 Dose: 20 mg Lacosamide (Vimpat) 150 mg PO BID [facility] Last Admin: 05/03/17 16:36 Dose: 150 mg Tobramycin/Dexamethasone (Tobradex Opht Susp) 1 drop OS QID [facility] Last Admin: 05/04/17 08:43 Dose: 1 drop - Labs Labs: 05/04/17 04:40 05/04/17 04:40 - Constitutional Appears: Well - Head Exam Head Exam: ATRAUMATIC, NORMAL INSPECTION, NORMOCEPHALIC - Neurological Exam Neurological Exam: Alert, Awake, CN II-XII Intact, Normal Gait, Oriented x3 Neuro motor strength exam: Left Upper Extremity: 5, Right Upper Extremity: 5, Left Lower Extremity: 5, Right Lower Extremity: 5 Additional comments: Neurological unchanged from previous examination. Assessment and Plan (1) Cyst of brain Assessment & Plan: Case discussed with Dr. Mcdermott, continue current medical therapy. Awaiting pre- authorization for his Vimpat medication. There is no new recommendation from neurology. Status: Acute
--- NOTE | 2017-05-04 11:45 | CP.PCM.PN ---
Subjective - Date & Time of Evaluation Date of Evaluation: 05/04/17 Time of Evaluation: 13:00 - Subjective Subjective: ID Note- Pt. seen and examiend today. pt. is in good spirits . states he is going home today. He denies any MCCLURE and denies any nausea or vomiting. he states his body rash is alaso improving. Objective - Vital Signs/Intake and Output Vital Signs (last 24 hours): Temp Pulse Resp BP Pulse Ox 98.2 F 58 L 20 102/68 98 05/04/17 08:00 05/04/17 09:00 05/04/17 08:00 05/04/17 08:00 05/04/17 08:00 - Medications Medications: Current Medications Al Hydrox/Mg Hydrox/Simethicone (Maalox Plus 30 Ml) 30 ml PO Q8 PRN PRN Reason: Indigestion / Heartburn Last Admin: 04/29/17 21:15 Dose: 30 ml Albendazole (Albenza 200 Mg Tab) 800 mg PO DAILY@1800 [facility] Last Admin: 05/01/17 17:08 Dose: 800 mg Cyanocobalamin (Vitamin B12 1000 Mcg/Ml Inj) 1,000 mcg IM DAILY [facility] Last Admin: 05/04/17 08:43 Dose: 1,000 mcg Dexamethasone (Decadron) 2 mg PO Q12 [facility] Last Admin: 05/04/17 08:43 Dose: 2 mg Famotidine (Pepcid) 20 mg PO BID [facility] Last Admin: 05/04/17 08:43 Dose: 20 mg Lacosamide (Vimpat) 150 mg PO BID [facility] Last Admin: 05/04/17 10:00 Dose: 150 mg Tobramycin/Dexamethasone (Tobradex Opht Susp) 1 drop OS QID [facility] Last Admin: 05/04/17 08:43 Dose: 1 drop - Labs Labs: 1 - Additional Findings Additional findings: - Constitutional Appears: Non-toxic, No Acute Distress - Head Exam Head Exam: ATRAUMATIC - Eye Exam Eye Exam: EOMI, PERRL - ENT Exam ENT Exam: Normal Oropharynx - Neck Exam Neck Exam: Full ROM - Respiratory Exam Respiratory Exam: Clear to Ausculation Bilateral, NORMAL BREATHING PATTERN - Cardiovascular Exam Cardiovascular Exam: RRR, +S1, +S2 - GI/Abdominal Exam GI & Abdominal Exam: Soft, Normal Bowel Sounds Additional comments: NT, ND - Extremities Exam Extremities Exam: Normal Inspection - Neurological Exam Neurological Exam: Alert, Awake, Oriented x3 - Skin Skin Exam: Rash Additional comments: pinpoint small round papular rash on arms and back and chest nonpruritic improving no erythema Laboratory Results - last 72 hr 05/03/17 05/03/17 05/04/17 04:30 04:30 04:40 WBC 19.0 H RBC 5.55 Hgb 16.1 Hct 48.7 MCV 87.8 MCH 29.1 MCHC 33.1 RDW 13.5 Plt Count 121 L D MPV 12.8 H Neut % (Auto) 83.2 H Lymph % (Auto) 10.0 L [place] % (Auto) 6.7 Eos % (Auto) 0.0 Baso % (Auto) 0.1 Neut # 15.8 H Lymph # 1.9 [place] # 1.3 H Eos # 0.0 Baso # 0.0 Sodium 141 139 Potassium 5.3 H 4.3 Chloride 99 101 Carbon Dioxide 30 27 Anion Gap 17 15 BUN 20 21 H Creatinine 0.8 0.6 L Est GFR ( Amer) > 60 > 60 Est GFR (Non-Af Amer) > 60 > 60 Random Glucose 121 H 111 H Calcium 9.0 8.7 Total Bilirubin 0.8 0.7 AST 46 47 ALT 81 H D 103 H D Alkaline Phosphatase 79 74 Total Protein 6.4 6.1 L Albumin 3.6 3.4 L Globulin 2.8 2.7 Albumin/Globulin Ratio 1.3 1.3 05/04/17 04:40 WBC 16.3 H RBC 5.35 Hgb 15.4 Hct 46.6 MCV 87.1 MCH 28.8 MCHC 33.1 RDW 13.7 Plt Count 118 L MPV Neut % (Auto) Lymph % (Auto) [place] % (Auto) Eos % (Auto) Baso % (Auto) Neut # Lymph # [place] # Eos # Baso # Sodium Potassium Chloride Carbon Dioxide Anion Gap BUN Creatinine Est GFR ( Amer) Est GFR (Non-Af Amer) Random Glucose Calcium Total Bilirubin AST ALT Alkaline Phosphatase Total Protein Albumin Globulin Albumin/Globulin Ratio Microbiology 04/27/17 00:00 Nose MRSA Culture (Admit) - Final MRSA NOT DETECTED 04/20/17 12:41 Naris MRSA Culture (Admit) - Final MRSA NOT DETECTED 04/19/17 Unknown Naris MRSA Culture (Admit) - Final MRSA NOT DETECTED Assessment and Plan (1) Seizure Status: Chronic (2) Cyst of brain Status: Acute - Assessment and Plan (Free Text) Assessment: A/P- 31 year old male from [place] with ? cyst in brain , continued seizure like activity despite being on 2 anti-zeisure meds. slight leukocytosis still present most likely from the steroids. has remained afebrile no MCCLURE, no vibration sensation. rash most likely allergic response rash hard to tell whether from antiseizure vs antiparasitic medication. MRI report noted - as per report cyst unchanged. tenia solium western blot was as Negative, however, tenia solium Saira test from last admission was 1.27 (positive) and since the test not very sensitive in the diagnosis of Neurocysticercosis, specailly when there is a single cyst. diagnosis more based on clinical signs and imaging. still await the saira test from this admission as well , spoke with Susan from the lab . Plan- has completed 7 days of albendazole. antiseizure and steroids medication as per Neuro. pt. advised to f/u with as outpatient. advise to have hiw LFTs and wbc monitored by his pcp and/or neuro as outpatient. advised no need for further albendazole at this time . may need repeat MRI in 2-3 weeks as outpatient. advised pt. if he develops another vibration or seizure on current antiseizure medication to go to a tertiary care center with neuro ICU center for further evaluation of the cyst ( perhaps biopsy vs cyst extraction ) . Pt. verbalizes full understanding of all above and agrees with above plan of care.
[2017-05-04 12:20] VITALS: BP 115/76; PULSE 78; TEMP 97.7
--- NOTE | 2017-05-04 13:10 | CP.PCM.PCO ---
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 will fill rx at his outpatient pharmacy [facility] pt. cleared for discharge to home today by , and pt. will f/u with outpatient
== END 2017-05-04 14:08 | disposition home or self-care (01) | DRG 423 ==
LOC: H.ER 17:24 → H.ERHOLD 22:21 → H.ICU/CCU 04-19 01:00 → H.TEL 04-20 13:58 → OBSVTOIN 04-20 15:06 → H.ICU/CCU 04-27 13:22 → H.TEL 04-28 11:10
PROVIDERS: ADMIT Internal Medicine; ATTEND Internal Medicine
DX: B69.0 Cysticercosis of central nervous system (principal); G93.6 Cerebral edema; G93.0 Cerebral cysts; R56.9 Unspecified convulsions; I10 Essential (primary) hypertension; R53.1 Weakness; R21 Rash and other nonspecific skin eruption